=== PATIENT | female | born 1945 | race Caucasian/White ===

== ENCOUNTER → 2018-01-08 13:08 | Outpatient (CLI) | payer MEDICARE, MEDICAID, SELFPAY | PROVIDERS: PCP General Practice; Visit Provider Nurse Practitioner Family | DX: I10 Essential (primary) hypertension (principal); N95.0 Postmenopausal bleeding | CPT/HCPCS: 36415; 80051; 84520; 82565; 84443 ==

== ENCOUNTER → 2018-01-15 03:11 | Outpatient (CLI) | payer MEDICARE, MEDICAID, SELFPAY ==
--- NOTE | 2018-01-15 12:50 | DI.REPORT_ITS ---
SYMPTOMS/DIAGNOSIS: POSTMENOPAUSAL BLEEDING, N95.0 PELVIC ULTRASOUND: Transabdominal and transvaginal exams were performed. The uterus measures 6.4 x 2.7 x 3.7 cm. The endometrial stripe measures 2 mm in thickness. No fibroids are seen. The ovaries are normal in size and appearance. There is no evidence of hydronephrosis or free fluid. The bladder is unremarkable. IMPRESSION: Pelvic ultrasound is within normal limits.
== END ==
PROVIDERS: PCP General Practice; Visit Provider Nurse Practitioner Family
DX: N95.0 Postmenopausal bleeding (principal)
CPT/HCPCS: 76830; 76856

== ENCOUNTER 2018-06-25 10:23 | Outpatient (CLI) | payer MEDICARE, MEDICAID, SELFPAY ==
--- NOTE | 2018-06-25 10:26 | DI.RAD_ITS ---
SYMPTOM/DIAGNOSIS: L TKA LEFT KNEE: Comparison is made with 06 July 2017. Weight bearing AP and lateral views are performed. A total knee prosthesis is again noted. There has been no change in alignment. No abnormal bony lucencies are seen. IMPRESSION: Stable appearance of left knee prosthesis.
== END 2018-06-25 10:43 ==
PROVIDERS: PCP General Practice; Visit Provider Student in an Organized Health Care Education/Training Program
DX: M17.12 Unilateral primary osteoarthritis, left knee (principal); Z96.652 Presence of left artificial knee joint; Z47.1 Aftercare following joint replacement surgery; I10 Essential (primary) hypertension
CPT/HCPCS: 99213; 73560

== ENCOUNTER 2018-06-28 11:49 | Outpatient (CLI) | payer MEDICARE, SELFPAY ==
[2018-06-28 13:16] LABS: BUN 13 mg/dL (7-18); CREATININE 0.94 mg/dL (0.55-1.02); Chloride 99 mmol/L (98-107); Potassium 4.2 mmol/L (3.5-5.1); Sodium 139 mmol/L (136-145)
== END 2018-06-28 12:09 ==
PROVIDERS: PCP General Practice; Visit Provider General Practice
DX: E11.9 Type 2 diabetes mellitus without complications (principal); I10 Essential (primary) hypertension
CPT/HCPCS: 36415; 80051; 84520; 82565; 83036

== ENCOUNTER 2018-07-22 10:57 | Outpatient (CLI) | payer MEDICARE, SELFPAY ==
[2018-07-22 12:25] LABS: HCT 41.6 % (36.0-46.0); HGB 13.8 g/dL (12.0-15.5)
== END 2018-07-22 11:17 ==
PROVIDERS: PCP General Practice; Visit Provider Obstetrics & Gynecology
DX: N75.0 Cyst of Bartholin's gland (principal); Z01.818 Encounter for other preprocedural examination
CPT/HCPCS: 36415; 86850; 86900; 86901; 85014; 85018

== ENCOUNTER 2018-07-28 10:36 | Observation (INO) | payer MEDICARE, MEDICAID, SELFPAY ==
--- NOTE | 2018-07-22 11:43 | DSU.FORM ---
07/22/18 Patient scheduled for anesthesia visit. No anesthesia provider available at the time of pre op visit.
[2018-07-28] VITALS (11 sets, daily range): BP systolic 82–160; BP diastolic 35–85; PULSE 65–82; RESP 12–20; TEMP 36.4–37.1; O2SAT 93–97
[2018-07-28] MEDS: Lactated Ringers 1,000 ML 125 ML IV ×2 (08:31→11:12)
[2018-07-28] MEDS: Bupivacaine 0.25% Pres-Free 30 ML VIAL (09:25)
--- NOTE | 2018-07-28 09:48 | BARTHOLIN_PTH ---
PATIENT: Neema Luong V LOC: OBS U#:[id number] AGE/SX: 73/F ROOM: OBS.304 RE07/28/[address]: Jefe Kruger MD : 1945 BED: A DIS: 07/29/2018 SPEC #: [id number] RECD: 07/28/18 12:52 STATUS: EVA REQ #: [id number] IMER: 07/28/18 09:[address]: Jefe Krugre DEPT: Surgical Specimen RECD BY: Daija Rai ENTERED: 07/28/18 12:54 SP TYPE: Brenda Cyst OTHR DR: Blaze Davis Tissues: 1 - BARTHOLIN GLAND CYST Procedures: GROSS AND MICRO LEVEL 3 Comments: [id number]
--- NOTE | 2018-07-28 13:46 | NUR.NOTE ---
Admitteed to room 304 via stretcher from PACU. Alert, oriented, IV patent in R periph line at [address] drain in place r labia. SCD's on bilat. Nursing Note:
[2018-07-28] MEDS: Lactated Ringers 1,000 ML 75 ML IV (16:50)
[2018-07-28] MEDS: Normal Saline Flush 10 ML SYR IV ×2 (17:10→19:40)
[2018-07-28] MEDS: traMADol 50 MG TAB PO ×2 (18:17→22:03)
[2018-07-28] MEDS: Pregabalin 50 MG CAP 150 MG PO (21:11)
[2018-07-28] MEDS: Acetaminophen 500 MG TAB 1000 MG PO (21:11)
[2018-07-28] MEDS: FLUoxetine 20 MG CAP 40 MG PO (21:12)
[2018-07-28] MEDS: clonazePAM 0.5 MG TAB PO (21:12)
[2018-07-29 03:30] VITALS: BP 130/69; PULSE 71; RESP 16; TEMP 36.8; O2SAT 95
[2018-07-29] MEDS: Normal Saline Flush 10 ML SYR IV (03:42)
[2018-07-29] MEDS: Pregabalin 50 MG CAP 150 MG PO (08:21)
[2018-07-29] MEDS: FLUoxetine 20 MG CAP 40 MG PO (08:22)
[2018-07-29] MEDS: clonazePAM 0.5 MG TAB 0.25 MG PO (09:15)
--- NOTE | 2018-07-29 09:18 | PGE_ITS ---
Date of Service Date of service: 07/29/18 Time of Service: 09:16 Assessment and Plan (1) Vulvar mass: Current visit: Yes Status: Acute S/P excision of Bartholin's mass. She is felt suitable for discharge home. She does have tramadol at home and will not require a new prescription. Follow up with me in 1-2 weeks. Subjective Interval history since last seen: Doing well overnight. Minimal pain. Now rated 2/10. No significant vaginal bleeding or drainage from the incision. Tolerating regular diet. Ambulatory. Exam Other: On exam incision is well approximated. The silk suture retaining the [place] drain was clipped and the drain was removed easily. Minimal sero- sanguineous drainage was noted. Objective Objective Clinical Data: Vital Signs Temperature 98.2 F 07/29/18 03:30 Temperature Source Oral 07/29/18 03:30 Pulse 71 07/29/18 03:30 Pulse Rhythm Regular 07/29/18 03:15 Respiratory Rate 16 07/29/18 03:30 Respiratory Effort Non-Labored 07/29/18 03:15 Respiratory Depth Normal 07/29/18 03:15 Respiratory Pattern Normal 07/29/18 03:15 Blood Pressure 130/69 07/29/18 03:30 Pulse Oximetry 95 07/29/18 03:30 Respiratory End-tidal CO2 45 07/28/18 11:08 Oxygen Delivery Method Room Air 07/29/18 03:30 Oxygen Flow Rate 0 07/29/18 03:30 Pain Level 0 07/29/18 03:30 Comment 07/28/18 19:12 Intake & Output 07/28/18 07/28/18 07/29/18 11:59 23:59 11:59 Intake Total 999. Output Total 300 / 1700 1400 / 1700 1275 / 1275 Balance 700 / 300.00 -400.00 / 300.00 -1275 / -1275 Weight 220 lb 7.396 oz Intake: IV 999. Output: Urine 1400 / 1400 1275 / 1275 Estimated Blood Loss 300 / 300 Other: Urine Color Yellow Yellow Urine Appearance Clear Clear Urine Odor None None Comment laurita drain in place and draining small amount of serosanguous drainage laurita drain intact; no drainage noted Emesis Description None Voiding Methods Toilet Toilet
--- NOTE | 2018-07-29 09:26 | W.PM.OP ---
Date of service: 07/28/18 Time of Service: 10:00 Operative Note DATE OF PROCEDURE: 07/28/18 PRE-OP DIAGNOSIS: Bartholin's mass POST-OP DIAGNOSIS: same PROCEDURE: Excision of lesion of Bartholin's gland ASSISTING SURGEON: Alexus Monroy ANESTHESIA: GETA ESTIMATED BLOOD LOSS: 300 PATHOLOGY: other (Bartholin's mass) COMPLICATIONS: None Patient was transported to: PACU Patient's condition: stable Implants: [place] drain Findings: 4 cm vulvar mass in the region of Bartholin's gland Procedure Description: The patient was taken to the operating and after adequate general anesthesia was obtained the patient was placed in lithotomy position. The patient was prepped and draped in the usual sterile manner. The mass in the right vulvar was identified. The skin just inside the right labia was infiiltrated with 0.25% marcaine. A vertical incision was made overlying the mass and sharp dissection was used to dissect free the lesion from the labia. Dissection was carried quite deep and multiple vascular bundles required suture ligation. The lesion was well defined with no extension and was not fixed to surrounding tissue. The defect was closed in layers with 2-0 vicryl suture and a [place] drain was secured within the incision The incision was closed with interrupted vertical mattress sutures. The procedure was concluded at this point. Sponge, lap and needle counts were correct at the conclusion of the procedure. The patient tolerated the procedure well and was transferred to PACU in stable condition.
--- NOTE | 2018-07-29 09:31 | ROE_ITS ---
Date of service: 07/28/18 Time of Service: 10:00 Operative Note DATE OF PROCEDURE: 07/28/18 PRE-OP DIAGNOSIS: Bartholin's mass POST-OP DIAGNOSIS: same PROCEDURE: Excision of lesion of Bartholin's gland ASSISTING SURGEON: Alexus Monroy ANESTHESIA: GETA ESTIMATED BLOOD LOSS: 300 PATHOLOGY: other (Bartholin's mass) COMPLICATIONS: None Patient was transported to: PACU Patient's condition: stable Implants: [place] drain Findings: 4 cm vulvar mass in the region of Bartholin's gland Procedure Description: The patient was taken to the operating and after adequate general anesthesia was obtained the patient was placed in lithotomy position. The patient was prepped and draped in the usual sterile manner. The mass in the right vulvar was identified. The skin just inside the right labia was infiiltrated with 0.25% marcaine. A vertical incision was made overlying the mass and sharp dissection was used to dissect free the lesion from the labia. Dissection was carried quite deep and multiple vascular bundles required suture ligation. The lesion was well defined with no extension and was not fixed to s urrounding tissue. The defect was closed in layers with 2-0 vicryl suture and a [place] drain was secured within the incision The incision was closed with interrupted vertical mattress sutures. The procedure was concluded at this point. Sponge, lap and needle counts were correct at the conclusion of the procedure. The patient tolerated the procedure well and was transferred to PACU in stable condition.
[2018-07-29 11:47] VITALS: BP 130/64; PULSE 74; RESP 16; TEMP 37.1; O2SAT 98
== END 2018-07-29 11:15 | disposition home or self-care (01) ==
LOC: OBS 11:52
PROVIDERS: Admitting Provider Obstetrics & Gynecology; PCP General Practice; Visit Provider Obstetrics & Gynecology
PROC: 0UBL0ZZ Excision of Vestibular Gland, Open Approach (ICD-10-PCS; CPT 56740; principal; 2018-07-28 09:00)
DX: N75.0 Cyst of Bartholin's gland (principal); I10 Essential (primary) hypertension; K21.9 Gastro-esophageal reflux disease without esophagitis; E78.5 Hyperlipidemia, unspecified
CPT/HCPCS: 56740; 99233; 88304; A4600; J1100; J2405; J3010

== ENCOUNTER 2019-05-17 10:21 | Outpatient (CLI) | payer MEDICARE, MEDICAID, SELFPAY ==
[2019-05-17 11:47] LABS: Hemoglobin A1C 6.3 % (4.5-6.2)
[2019-05-17 11:55] LABS: BUN 13 mg/dL (7-18); CREATININE 0.74 mg/dL (0.55-1.02); Chloride 103 mmol/L (98-107); Potassium 3.9 mmol/L (3.5-5.1); Sodium 142 mmol/L (136-145)
== END 2019-05-17 10:41 ==
PROVIDERS: PCP General Practice; Visit Provider General Practice
DX: E11.9 Type 2 diabetes mellitus without complications (principal); I10 Essential (primary) hypertension
CPT/HCPCS: 36415; 80051; 84520; 82565; 83036

== ENCOUNTER → 2019-08-03 10:29 | Outpatient (BNVA) | payer MEDICARE, SELFPAY | PROVIDERS: PCP Nurse Practitioner Family; Referring Provider Nurse Practitioner Family; Visit Provider Surgery | DX: K62.5 Hemorrhage of anus and rectum (principal); K63.5 Polyp of colon; R59.0 Localized enlarged lymph nodes; Z00-Z99 Factors influencing health status and contact with health services | CPT/HCPCS: 99202; 99213 ==

== ENCOUNTER 2019-08-08 09:22 | Day surgery (SDC) | payer MEDICARE, SELFPAY ==
[2019-08-08 09:48] VITALS: BP 135/64; PULSE 58; RESP 16; TEMP 36.5; O2SAT 92
[2019-08-08] MEDS: Lactated Ringers 1,000 ML 100 ML IV (10:55)
--- NOTE | 2019-08-08 12:05 | STOM_PTH ---
PATIENT: Neema Luong V LOC: JAMIR U#:[id number] AGE/SX: 74/F ROOM: RE08/08/[address]: Callie Watkins : 1945 BED: DIS: 08/08/2019 SPEC #: [id number] RECD: 08/08/19 18:04 STATUS: EVA RE #: [id number] IMER: 08/08/19 12:[address]: Callie Watkins DEPT: Surgical Specimen RECD BY: Daija Rai ENTERED: 08/08/19 18:05 SP TYPE: STOMACH OTHR DR: Geoff Leiva Tissues: 1 - BIOPSY BOWEL 2 - STOMACH BIOPSY 3 - STOMACH BIOPSY 4 - ESOPHAGUS BIOPSY 5 - ESOPHAGUS BIOPSY Procedures: GROSS AND MICRO LEVEL 4 Comments: [id number]
--- NOTE | 2019-08-08 13:15 | W.PM.DSUDISC ---
Discharge Plan Disposition Patient Disposition: HOME Condition: Good Discharge Details Reason For Visit: HX OF COLON CAbile reflux gastritis/esophagitis Attending Provider: Callie Watkins Primary Care Provider: Geoff Leiva Home Meds and New Rx's Prescriptions: New sucralfate 1 gram tablet 1 gm PO QACHS Qty: 120 RF: 12 omeprazole 10 mg capsule,delayed release(DR/EC) 20 mg PO DAILY Qty: 60 RF: 12 lactulose 10 gram/15 mL (15 mL) solution 10 gm PO DAILY PRN (Reason: constipation) Qty: 750 RF: 12 Continued Medical Marijuana PO HS RF: 0 duloxetine [Cymbalta] 30 mg capsule,delayed release(DR/EC) 30 mg PO DAILY RF: 0 estradiol [Estrace] 0.01 % (0.1 mg/gram) cream 1 gm VG .COMPLEX Qty: 42.5 RF: 4 metoprolol succinate 50 MG tablet extended release 24 hr 12.5 mg PO BID RF: 0 clonazepam 0.5 MG tablet,disintegrating 0.25 mg PO BID PRNQty: 10 RF: 0 tramadol 50 MG tablet 50 mg PO Q6H PRN Qty: 20 RF: 0 lovastatin 40 MG tablet 40 mg PO DAILY RF: 0 hydrochlorothiazide 25 MG tablet 25 mg PO DAILY AM RF: 0 oxybutynin chloride 5 MG tablet 5 mg PO TID RF: 0 epinephrine 0.3 MG/SYR auto-injector 0.3 mg IJ PRN PRNRF: 0 diclofenac sodium [Voltaren] 100 GM gel 100 gm Topical BID RF: 0 albuterol sulfate [ProAir HFA] 8.5 GM HFA aerosol inhaler 2 puff Inhalation Q4H PRN PRNQty: 1 RF: 0 (DME) [employer] Action Asthma Kit 1 EACH kit 1 ea Miscellaneous Q4H PRN Qty: 1 RF: 0 pregabalin [Lyrica] 50 MG capsule 150 mg PO BID RF: 0 diphenhydramine-acetaminophen [Acetaminophen PM] 1 EACH tablet 2 tab PO HS PRNRF: 0 acetaminophen [Mapap Extra Strength] 500 MG tablet 1,000 mg PO Q8H Qty: 100 RF: 3 acetaminophen [Tylenol] 325 MG tablet 650 mg PO Q4H PRN PRNRF: 0 Discontinued aspirin 81 MG tablet,chewable 81 mg PO DAILY RF: 0 polyethylene glycol 3350 17 gram/dose powder 238 g PO ONCE Qty: 238 RF: 0 bisacodyl [Dulcolax (bisacodyl)] 5 mg tablet,delayed release (DR/EC) 5 mg PO ONCE Qty: 4 RF: 0 Discharge Instructions Instructions: Gastroesophageal Reflux Disease (GEN), High Fiber Diet (GEN) Additional Instructions: Findings:gastritis/esophagitis/GERD colon normal Continue with lifestyle modifications: no alcohol, tobacco products, Aspirin or NSAID's (ibuprofen, Motrin, Naprosyn, aleve, etc), soda pop/any carbonated beverages, caffeine (including tea & chocolate), and acidic foods, (tomatoes, citrus, onions, peppermints) spicy foods. Do not lie down for 30 minutes after eating, and do not eat 2 hours prior to bedtime. Avoid wearing tight fitting clothing/ belts -metamucil daily stop taking ASA daily Rx: prilosec and carafate and lactulose (daily to every other day prn BM) Follow up: 3-4 wks Please call if you develop: fevers >101.5 Nausea or Vomiting Abdominal pain that is not transient DAY SURGERY UNIT POST COLONOSCOPY INSTRUCTIONS 1. Because there will be medication in your system for the next 24 hours, you may feel a little sleepy. Your coordination will be affected. Therefore: a. Do not drive or operate dangerous equipment for 24 hours. b. Do not drink alcohol beverages for 24 hours (not even beer). c. Plan to go home and rest for the day. 2. Generally there are no restrictions on your activity after a day or so has gone by, but you may feel a bit fatigued for a few days. 3 After you arrive home you may have a light meal and return to a normal diet as you can tolerate it without feeling sick to your stomach. 4. After surgery, you may feel pain or discomfort. This should be only transient, but if it persists please contact your doctor. 5. If there are any questions regarding the findings of your procedure, please feel free to contact your doctor. 6. If you are unable to contact your doctor with a problem, contact the hospital at [phone]. 7. Continue all your regular medications unless directed otherwise. I understand the above instructions and have no questions. Signature of Patient or Responsible Adult Escort Date/Time Name of Responsible Adult Escort Signature of Nurse Date/Time Stand Alone Forms: Colonoscopy Post Instructions, DSU Post EGD Instructions, Jossie Garza (DSU) Discharge Orders Discharge Orders: Discharge Order (Routine); Ordered 08/08/19 Ordered By: Callie Watkins DS: Diagnosis Discharge Diagnosis (1) Polyp of colon: Status: Active (2) History of colon cancer: Status: Acute (3) Bile reflux gastritis: Status: Acute (4) Esophagitis determined by endoscopy: Status: Acute (5) GERD (gastroesophageal reflux disease): Status: Chronic
[2019-08-08] MEDS: Pantoprazole 40 MG VIAL IVP (13:20)
[2019-08-08] MEDS: Normal Saline Flush 10 ML SYR IV (13:27)
[2019-08-08 13:30] VITALS: BP 102/69; PULSE 60; RESP 18; TEMP 35.8
--- NOTE | 2019-08-08 14:28 | W.PM.ENDDOP ---
Date of service: 08/08/19 Time of Service: 22:00 Endoscopy Report DATE OF PROCEDURE: 08/08/19 PRE-OP DIAGNOSIS: gerd/dysphagia POST-OP DIAGNOSIS: other (bile reflux gastritis/esphagitis/slipped andrew) PROCEDURE: egd adn bx SURGEON: Callie Watkins ANESTHESIA: GETA ESTIMATED BLOOD LOSS: 1 PATHOLOGY: other COMPLICATIONS: None DISPOSITION: same day PROCEDURE DESCRIPTION: After informed consent was obtained the patient was take to the procedure room and placed in a supine position. Monitors were applied and a time out was done. The patients name, date of , procedure type, allergies to medications and metal in their body was reviewed. A bite block was placed and the patient was sedated. Once sedated and comfortable the gastroscope was advanced through the oropharynx which was grossly normal into the esophagus. The proximal and mid-esophagus were nl. In the distal esophagus there was moderate esophagitis. Changes could be consistent w/ Ayala's. Bx taken. THere is one tongue of muscosa at 11oclock position. noted. The scope was advanced into the stomach and through the pylorus into the 3rd portion of the duodenum. The duodenum was noted to be nl. Biopsies were done. All specimens are retrieved and no bleeding is noted.. The scope was retracted back into the stomach and biopsies were done to rule out H. pylori. There were moderate gastritis at antrum and inferior 1/2 of staomach along greater curve/dependant portion. No ulcers. The scope was retroflexed. The cardia and fundus were noted to be normal. There No a hiatal hernia noted. signs of previous wrap. This has come undone at this point- there is no wrap. The scope was retracted back into the esophagus and biopsies were done of the GE junction to rule out Ayala's. The Z line was irregular. The GE junction was at 38 cm. The scope was removed.
--- NOTE | 2019-08-08 14:31 | W.COLOREPORT ---
Date of service: 08/08/19 Time of Service: 21:58 Colonoscopy Report Date of procedure: 08/08/19 Pre-op diagnosis general: hx of CRC adn polyps/diverticula Post-op diagnosis procedure note: same Procedure: CE Surgeon: Callie Watkins Anesthesia proc note operative: GETA Estimated blood loss (mL): 0 Pathology: none sent Complications: None Disposition: same day Prep: Miralax/Dulcolax Retraction Time: 8 mins Procedure Description: After informed consent was obtained the patient was taken to the procedure room and placed in a left decubitous position. Monitors were applied and a time out was done. The patients name, date of , procedure, allergies to medications and metal in their body was reviewed. The patient was then sedated. Once sedated and comfortable a rectal exam was done. Internal exam revealed a normal sphincter tone and no palpable masses. no intneral hemorrhoids. The scope was then introduced and retrofelexed. No internal hemorrhoids were identified. The scope was then advanced to the cecum [w/out difficulty. The TI and appendiceal orifice were identified. The prep was good.. Pt has had x2 prior colon resections. Appears to be cecal adn sigmoid. a few small diverticula left insgmoid. no active bleeding/infection. The scope was then slowly retracted over 8 minutes back into the rectum. No Polyps were removed. The scope was removed and the patient was woken up and taken back to Same day surgery in stable condition. She had remants of hemorrhoidal tags. The patient tolerated the procedure well and there were no immediate complications. Follow up: The patient does nto need any repeat CE's unless they develop changes in bowel habits or other new gastrointestinal complaints.
== END 2019-08-08 14:30 | disposition home or self-care (01) ==
PROVIDERS: PCP Nurse Practitioner Family; Visit Provider Surgery
PROC: (CPT 43239; principal; 2019-08-08 10:30)
DX: K21.9 Gastro-esophageal reflux disease without esophagitis (principal); R13.10 Dysphagia, unspecified; K31.89 Other diseases of stomach and duodenum; K20.9 Esophagitis, unspecified; K29.70 Gastritis, unspecified, without bleeding; I10 Essential (primary) hypertension; E11.9 Type 2 diabetes mellitus without complications; G47.33 Obstructive sleep apnea (adult) (pediatric); Z85.038 Personal history of other malignant neoplasm of large intestine; K91.89 Other postprocedural complications and disorders of digestive system
CPT/HCPCS: 43239; 88305; J2001

== ENCOUNTER 2019-09-02 09:47 | Outpatient (CLI) | payer MEDICARE, SELFPAY ==
[2019-09-06 05:14] LABS: SARS-CoV-2 RNA Undetected (Undetected); SARS-CoV-2 Specimen Source Nasopharynx
== END 2019-09-02 10:07 ==
PROVIDERS: PCP Nurse Practitioner Family; Visit Provider Surgery
DX: Z03.818 Encounter for observation for suspected exposure to other biological agents ruled out (principal)
CPT/HCPCS: U0003

== ENCOUNTER → 2019-09-07 15:35 | Outpatient (BNVA) | payer MEDICARE, MEDICAID, SELFPAY | PROVIDERS: PCP Nurse Practitioner Family; Referring Provider Nurse Practitioner Family; Visit Provider Surgery | DX: K59.01 Slow transit constipation (principal); J45.909 Unspecified asthma, uncomplicated; K21.0 Gastro-esophageal reflux disease with esophagitis; K63.5 Polyp of colon; N81.6 Rectocele | CPT/HCPCS: 99212; 99442 ==

== ENCOUNTER → 2019-10-05 09:07 | Outpatient (BNVA) | payer MEDICARE, MEDICAID, SELFPAY | PROVIDERS: PCP Nurse Practitioner Family; Referring Provider Nurse Practitioner Family; Visit Provider Surgery | DX: K59.01 Slow transit constipation (principal); K21.9 Gastro-esophageal reflux disease without esophagitis; E11.9 Type 2 diabetes mellitus without complications; I10 Essential (primary) hypertension | CPT/HCPCS: 99212; 99441 ==

== ENCOUNTER 2019-12-12 14:27 | Outpatient (REF) | payer MEDICARE, SELFPAY ==
[2019-12-12 17:30] LABS: HGB 13.7 g/dL (12.0-15.5); Mean Corp. HGB Concentration 33.4 g/dL (32.0-36.0); Mean Corpuscular Hemoglobin 28.8 pg (27.0-33.0); Mean Corpuscular Volume 86.1 fL (80-95); Mean Platelet Volume 11.1 fL (8.0-11.0); Platelet Count 264 x1000/uL (130-400); RBC 4.76 m/cumm (4.00-5.20); RBC Distribution Width 13.8 % (11.7-14.6); White Blood Cell Count 4.89 k/cumm (4.4-10.8)
[2019-12-12 17:51] LABS: ALT 27 U/L (14-59); AST 17 U/L (15-37); Albumin 3.6 g/dL (3.4-5.0); Alkaline Phosphatase 72 U/L (46-116); Anion Gap 8.1 mmol/L (3-11); BUN 12 mg/dL (7-18); Bilirubin, Total 0.4 mg/dL (0.2-1.0); CO2 30.9 mmol/L (21.0-32.0); CREATININE 0.79 mg/dL (0.55-1.02); Calcium 9.1 mg/dL (8.5-10.1); Calculated LDL 102 mg/dL (<100); Chloride 101 mmol/L (98-107); Cholesterol 171 mg/dL (<200); Glucose 130 mg/dL (74-106); HDL Cholesterol 43 mg/dL (40-60); Potassium 3.8 mmol/L (3.5-5.1); Sodium 140 mmol/L (136-145); Total Protein 6.2 g/dL (6.4-8.2); Triglyceride 132 mg/dL (<150)
[2019-12-12 18:14] LABS: COMMENT (LAB VIEW ONLY) 61.52 mg/dL; Microalb ug/mg Crea 2.3 ug/mg Cr
== END 2019-12-12 14:47 ==
LOC: NCHCN 14:27
PROVIDERS: PCP Nurse Practitioner Family; Visit Provider Nurse Practitioner Family
DX: I10 Essential (primary) hypertension (principal); E11.9 Type 2 diabetes mellitus without complications; E78.5 Hyperlipidemia, unspecified
CPT/HCPCS: 80053; 80061; 85027; 82043; 82570

== ENCOUNTER 2020-01-25 01:09 | Outpatient (CLI) | payer MEDICARE, MEDICAID, SELFPAY ==
--- NOTE | 2020-01-25 | DI.MAMMO_ITS ---
EXAM: MAMMO SCREENING 60 MIN DUR CLINICAL HISTORY: SCREENING,Z12.39 TECHNIQUE: Mammograms were interpreted according to the usual protocol including computer analysis w [employer] CAD system, tomosynthesis and C-view imaging. COMPARISON: FINDINGS: The breasts are of moderate density with fairly symmetrical distribution fibroglandular tissue. No d ominant mass identified in either breast. In the left breast, there is a new group of intramammary c alcifications seen only on CC view laterally which are not ideally visualized, these may be associate d with vascular calcifications but intraductal calcification is not excluded. Additional evaluation with magnification spot compression views of this area recommended. No other significant change in appearance comparison with previous examinations including July 21. IMPRESSION: Additional mammographic views of the left breast requested as described above. Breast ultrasound may be indicated as well depending on the results of the additional mammographic views. BI-RADS Cat 0 - Assessment Incomplete: Need additional imaging evaluation: Breast Density - Category B - Scattered areas of fibroglandular density
== END 2020-01-25 01:29 ==
PROVIDERS: PCP Nurse Practitioner Family; Visit Provider Nurse Practitioner Family
DX: Z12.31 Encounter for screening mammogram for malignant neoplasm of breast (principal); R92.8 Other abnormal and inconclusive findings on diagnostic imaging of breast
CPT/HCPCS: 77063; 77067

== ENCOUNTER 2020-02-09 02:26 | Outpatient (CLI) | payer MEDICARE, MEDICAID, SELFPAY ==
--- NOTE | 2020-02-09 14:35 | DI.MAMMO_ITS ---
EXAM: MG MAMMO SCREEN CALL BACK UNI CLINICAL HISTORY: F/U ABNL MAMMO, NEW GROUP OF INFLAMMATORY CALCIFICATIONS TECHNIQUE: Spot compression views including C- View and tomographic imaging were performed. COMPARISON: 2010 through 2016 FINDINGS: Spot magnification views were performed of the upper and outer aspect of the left breast for question ed calcifications. There are scattered calcifications which show do not appear significantly change d when compared with previous exams. No suspicious masses or suspicious microcalcifications are seen. IMPRESSION: BI-RADS Category 2 - Benign Findings Yearly screening mammography is recommended. Breast Density - Category B, scattered fibroglandular densities.
== END 2020-02-09 02:46 ==
PROVIDERS: PCP Nurse Practitioner Family; Visit Provider Nurse Practitioner Family
DX: R92.8 Other abnormal and inconclusive findings on diagnostic imaging of breast (principal); R92.1 Mammographic calcification found on diagnostic imaging of breast; Z12.31 Encounter for screening mammogram for malignant neoplasm of breast
CPT/HCPCS: 77063; 77067

== ENCOUNTER 2020-02-09 14:58 | Outpatient (CLI) | payer MEDICARE, MEDICAID, SELFPAY ==
[2020-02-09 18:12] LABS: Vitamin D 25 Total 19.9 ng/ml (30-100)
[2020-02-09 18:38] LABS: TSH (W/Ref FT4) 1.83 uIU/mL (0.36-3.74)
== END 2020-02-09 15:18 ==
PROVIDERS: Nurse Practitioner Psychiatric/Mental Health; PCP Nurse Practitioner Family; Visit Provider Nurse Practitioner Family
DX: F32.9 Major depressive disorder, single episode, unspecified (principal); E55.9 Vitamin D deficiency, unspecified
CPT/HCPCS: 36415; 82306; 84443

== ENCOUNTER 2020-08-09 15:02 | Outpatient (REF) | payer MEDICARE, MEDICAID, SELFPAY ==
[2020-08-09 16:29] LABS: HCT 40.6 % (36.0-46.0); HGB 13.6 g/dL (11.2-15.7); MCH 29.4 pg (27.0-33.0); MCHC 33.5 % (32.0-36.0); MCV 87.9 fL (80-95); MPV 11.1 fL (8.0-11.0); Platelet Count 248 10^3/uL (130-400); RBC 4.62 10^6/uL (3.93-5.22); RDW 12.7 % (11.7-14.6); RDW-SD 41.2 fL; WBC 5.24 10^3/uL (4.4-10.8)
[2020-08-09 16:48] LABS: Bilirubin Negative (Negative); Blood Negative (Negative); Clarity Clear (Clear); Glucose Negative (Negative); Ketones Negative (Negative); Leukocyte Esterase Trace (Negative); Nitrite Negative (Negative); Urobilinogen 0.2 EU/dL (Up TO 0.2)
[2020-08-09 16:58] LABS: Bacteria Few HPF (Negative); C & S Indicated? Yes; Casts Negative LPF (Negative); Crystals Negative HPF (Negative); Epithelial Cells Few HPF (Negative); Mucus Negative (Negative); RBC 0-2 HPF (0-2)
[2020-08-09 17:20] LABS: ALT 23 U/L (14-59); AST 14 U/L (15-37); Albumin 3.5 g/dL (3.4-5.0); Alkaline Phosphatase 83 U/L (46-116); Anion Gap 8.6 mmol/L (3-11); BUN 10 mg/dL (7-18); Bilirubin, Total 0.5 mg/dL (0.2-1.0); CO2 29.4 mmol/L (21.0-32.0); CREATININE 0.8 mg/dL (0.55-1.02); Calcium 9.2 mg/dL (8.5-10.1); Chloride 101 mmol/L (98-107); Glucose 145 mg/dL (74-106); Potassium 3.8 mmol/L (3.5-5.1); Sodium 139 mmol/L (136-145); TSH (W/Ref FT4) 2.02 uIU/mL (0.36-3.74); Total Protein 6.2 g/dL (6.4-8.2); Vitamin B12 248 pg/mL (193-986)
[2020-08-10 02:55] LABS: ESR 9 mm/hr (<or=30)
[2020-08-10 10:17] LABS: Hepatitis C Ab w Rflx HCV PCR Negative (Negative)
[2020-08-10 10:19] LABS: HIV-1/2 Ag & Ab Screen Negative (Negative)
[2020-08-10 11:44] LABS: Syphilis Serology (RPR) Negative (Negative)
== END 2020-08-09 15:03 | disposition home or self-care (01) ==
LOC: NCHCN 15:02
PROVIDERS: PCP Nurse Practitioner Family; Visit Provider Nurse Practitioner Family
DX: G31.84 Mild cognitive impairment of uncertain or unknown etiology (principal); I10 Essential (primary) hypertension; E11.9 Type 2 diabetes mellitus without complications; Z11.4 Encounter for screening for human immunodeficiency virus [HIV]; Z11.59 Encounter for screening for other viral diseases; R82.998 Other abnormal findings in urine
CPT/HCPCS: 80053; 85027; 85652; 86803; 87389; 81003; 81015; 82607; 84443; 86592; 87086

== ENCOUNTER 2020-08-28 10:51 | Outpatient (CLI) | payer MEDICARE, MEDICAID, SELFPAY ==
--- NOTE | 2020-08-28 10:30 | DI.RAD_ITS ---
EXAM: XR SHOULDER LT COMPLETE 2+V CLINICAL HISTORY: left shoulder pain. TECHNIQUE: 2D digital imaging was performed. COMPARISON: CR LEFT SHOULDER COMPLETE from 09/29/2014 FINDINGS: BONES: No acute fracture is present. No bony destructive lesion is seen. Spurring at the AC joint and tip of the acromion. Prominent spurring at the glenoid and humeral head . JOINTS: No dislocation present. Narrowing of the glenohumeral joint SOFT TISSUE: Normal. IMPRESSION: Advanced degenerative changes. DATA REPOSITORY: RADIATION DOSE DELIVERED:
== END 2020-08-28 10:52 | disposition home or self-care (01) ==
LOC: DIORS 10:51
PROVIDERS: PCP Nurse Practitioner Family; Referring Provider Nurse Practitioner Family; Visit Provider Student in an Organized Health Care Education/Training Program
DX: M25.512 Pain in left shoulder (principal); M19.012 Primary osteoarthritis, left shoulder
CPT/HCPCS: 99203; 99213; 73030

== ENCOUNTER 2020-09-14 13:25 | Emergency (ER) | payer MEDICARE, MEDICAID, SELFPAY ==
[2020-09-14 13:37] VITALS: BP 173/90; PULSE 84; RESP 20; TEMP 36.7; O2SAT 95
--- OUTSIDE RECORDS SUMMARY | 2020-09-14 13:40 | XMS_ITS ---
:1945 Author Care Team Providers Name Role Phone IZA ISBELL Primary Care Provider [phone] IZA ISBELL Referring Provider [phone] Allergies Code Code System Name Reaction Severity Status Onset 69 RxNorm Metronidazole ? ? Active ? Nsaids ? ? Active ? (Non-steroidal Anti-inflammatory Drug) 2597 RxNorm Oxycodone ? ? Active ? Sulfa (Sulfonamide ? ? Active ? Antibiotics) Medications Name Status Start Date Stop Date ? ? Amitiza 24 mcg capsule Completed ? 0 Amitiza 8 mcg capsule Active ? Not availa ble Take 1 capsule every day by oral route. clonazepam 0.5 mg tablet Active ? Not elsa ilable clonidine HCl 0.1 mg tablet Completed ? 12/30 diclofenac 1 % topical gel Completed ? 01/09 duloxetine 20 mg capsule,delayed Completed ? 01/10/2020 release duloxetine 30 mg capsule,delayed Active ? Not available release duloxetine 60 mg capsule,delayed Active ? Not available release epinephrine 0.3 mg/0.3 mL injection, Completed ? 01/10/2020 auto-injector Estrace 0.01% (0.1 mg/gram) vaginal cream Active ? Not available APPLY 1 GRAM BY VAGINAL ROUTE 2-3 TIMES WEEKLY estradiol 1 mg tablet Completed ? 01/10/2020 fluoxetine 10 mg capsule Completed ? 020 fluoxetine 20 mg capsule Completed ? 020 fluoxetine 40 mg capsule Active ? Not elsa ilable Take 1 capsule every day by oral route. fluticasone propionate 50 mcg/actuation Completed ? 01/10/2020 nasal spray,suspension hydrochlorothiazide 25 mg tablet Active ? Not available lactulose 10 gram/15 mL oral solution Completed ? 01/10/2020 lovastatin 40 mg tablet Active ? Not avai lable metoprolol succinate ER 25 mg Active ? No t available tablet,extended release 24 hr metoprolol tartrate 25 mg tablet Completed ? 01/10/2020 omeprazole 10 mg capsule,delayed Completed ? 01/10/2020 release omeprazole 40 mg capsule,delayed Completed ? 01/10/2020 release oxybutynin chloride 5 mg tablet Completed ? 01/10/2020 pantoprazole 40 mg tablet,delayed Active ? Not available release pregabalin 150 mg capsule Active ? Not av ailable sucralfate 1 gram tablet Completed ? 020 tramadol 50 mg tablet Active ? Not availa ble trazodone 50 mg tablet Active ? Not avail able Ventolin HFA 90 mcg/actuation aerosol inhaler Active ? Not available Inhale 1 puff every 6 hours by inhalation route as needed. Problems Name Status Onset Date Source ? Type 2 Diabetes Mellitus Active ? ? Hyperlipidemia Active ? ? Anxiety Active ? ? Depressive Disorder Active ? ? Chronic Pain Active ? ? Carpal Tunnel Syndrome Active ? ? Hypertensive Disorder Active ? ? Asthma Active ? ? Gastroesophageal Reflux Disease without Esophagitis Active ? ? Constipation Active ? ? Osteoarthritis Active ? ? Spinal Stenosis of Lumbar Region Active ? ? Fibromyalgia Active ? ? Sleep Apnea Active ? ? Overactive Bladder Active ? ? Procedures None recorded. Results Lab Results None recorded. Past Encounters 02/21/2020 Feroz Renteria, DO: [address] [place] [address], Ph. 01/10/2020 Feroz Renteria, DO: [address] [place] [address], Ph. Social History None recorded. Vaccine List None recorded. Plan of Care Reminders Provider Appointments None ? ? recorded. Lab None ? ? recorded. Referral None ? ? recorded. Procedures None ? ? recorded. Surgeries None ? ? recorded. Imaging None ? ? recorded. Vitals 02/21/2020 02:00PM General Surgery F/U 20 min Height Weight BMI Blood Pressure 149.86 cm 86.18 kg 38.4 kg/m2 110/72 mm[Hg] 01/10/2020 02:00PM General Surgery Consult 40 min Height Weight BMI Blood Pressure 149.86 cm 89.36 kg 39.8 kg/m2 126/82 mm[Hg]
--- OUTSIDE RECORDS SUMMARY | 2020-09-14 13:40 | XMS_ITS ---
:1945 Author Care Team Providers Name Role Phone [facility] REC[facility] Primary Care Provider [phone] IZA ISBELL [facility] - C Primary Care Provider [phone] Allergies Code Code System Name Reaction Severity Status Onset Sulfa ? ? Active ? (Sulfonamid e Antibiotics ) Medications Name Status Start Date Stop Date ? ? Amitiza 24 mcg capsule Active ? Not avail able Amitiza 8 mcg capsule Completed ? 04/09/2020 amoxicillin 500 mg capsule Active ? Not a vailable celecoxib 100 mg capsule Active ? Not elsa ilable clonazepam 0.5 mg tablet Active ? Not elsa ilable diclofenac 1 % topical gel Active ? Not a vailable duloxetine 30 mg capsule,delayed Active ? Not available release duloxetine 60 mg capsule,delayed Active ? Not available release epinephrine 0.3 mg/0.3 mL injection, Active ? Not available auto-injector Estrace 0.01% (0.1 mg/gram) vaginal Active ? Not available cream estradiol 1 mg tablet Active ? Not availa ble Flovent HFA 110 mcg/actuation aerosol Active ? Not available inhaler fluoxetine 40 mg capsule Active ? Not elsa ilable fluticasone propionate 50 mcg/actuation Active ? Not available nasal spray,suspension hydrochlorothiazide 25 mg tablet Active ? Not available lactulose 10 gram/15 mL oral solution Completed ? 04/09/2020 lovastatin 40 mg tablet Active ? Not avai lable magnesium gluconate 27 mg magnesium (500 mg) tablet Active ? Not available Take 1 tablet twice a day by oral route. metoprolol succinate ER 25 mg Active ? No t available tablet,extended release 24 hr metoprolol tartrate 25 mg tablet Active ? Not available omeprazole 10 mg capsule,delayed Active ? Not available release omeprazole 40 mg capsule,delayed Active ? Not available release oxybutynin chloride 5 mg tablet Active ? Not available pantoprazole 40 mg tablet,delayed Active ? Not available release pregabalin 150 mg capsule Active ? Not av ailable sucralfate 1 gram tablet Active ? Not elsa ilable tramadol 50 mg tablet Active ? Not availa ble trazodone 50 mg tablet Active ? Not avail able Ventolin HFA 90 mcg/actuation aerosol Completed ? 04/09/2020 inhaler Problems Name Status Onset Date Source ? Severe Obesity Active ? History Psychophysiologic Insomnia Active ? Histo ry Hypersomnia Active ? History Obstructive Sleep Apnea Syndrome Active ? History Idiopathic Sleep Related Non-obstructive Active ? History Alveolar Hypoventilation Sleep-wake Schedule Disorder, Delayed Phase Type Active ? History Hypertensive Disorder Active ? History Backache Active ? History Nocturia Active ? History Procedure by Method Active ? History Respiratory Finding Active ? History Finding of Esophagus Active ? History Procedures None recorded. Results Lab Results None recorded. Past Encounters 04/09/2020 Benzodiazepine Withdrawal; Obstructive S leep Apnea Syndrome; Cramp in Lower Limb Associated with Sleep; Health Education Given; Safety Education Roman Leroy MD, Board Certified Sleep Ph ysician: [address] [place] [address] [address], [place] [address], Ph. Social History Tobacco Smoking Status Former Smoker Notes: 1968 s the last time Neema smoked Vaccine List None recorded. Plan of Care Patient Instructions Since your is having DREAM ENACTMENT BEHAVIOR (or acting out his dreams), please sleep in a different bed at least so you do not get accidentally injured. Please take safety precautions for him a nd for you! Your should also get evaluated b ecause this is NOT normal sleep behavior. Your blood pressure is currently HIGH 17 0/90 and you feel anxious. You usually take clonazepam 0.5mg twice daily but you ran out on Thursday and has not taken for 3 days. I think you are having withdrawal symptoms. I talked to somebody at your pharmacy and let them know. She will try to get refill from your prescriber Kesha at [facility], but even if she cannot get the refill prescription today, you s till have 4 pills left from your previou s script that Carol can fill for you for next 2 days. We also talked about importance of getti ng new mask supplies. Your mask cushion is covered by your insurance for replacement every month. Please sara on your calendar to call Janice to ask for replacemen t as soon as your insurance covers. They do call you but it sounds like the phone may not be the most reliable way of reaching you and email is not so either. So calling them at . You can also ask if they have a toll free number you can call to order supplies. You can also try this number which should also get forwarded to Aston Camacho . Muscle cramps: I recommend Magnesium Glu conate 500mg. Start with 1 tablet twice daily. If you get loose stools, decrease to 1/2 tablet. follow up in 2.5 years. sooner if needed . Most important to avoid withdrawing from your medication in future. Reminders Provider Appointments None recorded. ? ? Lab None recorded. ? ? Referral None recorded. ? ? Procedures None recorded. ? ? Surgeries None recorded. ? ? Imaging None recorded. ? ? Vitals 04/09/2020 12:30PM New Patient 47 Height Weight BMI Blood Pressure 149.86 cm 92.99 kg 41.4 kg/m2 170/90 mm[Hg] 07/17/2016 Height Weight Blood Pressure 149.86 cm 96.87 kg 124/64 mm[Hg] 10/18/2015 Height Weight Blood Pressure 149.86 cm 102.29 kg 138/78 mm[Hg] 06/21/2015 Height Weight Blood Pressure 149.86 cm 98.18 kg 138/74 mm[Hg] 03/27/2015 Height Weight Blood Pressure 149.86 cm 99.85 kg 158/84 mm[Hg]
[2020-09-14 14:00] LABS: Bilirubin Negative (Negative); Blood Negative (Negative); Clarity Clear (Clear); Glucose Negative (Negative); Ketones Negative (Negative); Leukocyte Esterase Small (Negative); Nitrite Negative (Negative); Specific Gravity 1.015 (1.005-1.025); Urobilinogen 0.2 EU/dL (Up TO 0.2); pH 7.5 (5-8)
[2020-09-14 14:09] LABS: Bacteria Rare HPF (Negative); C & S Indicated? No; Casts Negative LPF (Negative); Crystals Negative HPF (Negative); Epithelial Cells Few HPF (Negative); Mucus Negative (Negative); RBC 0-2 HPF (0-2); WBC 0-2 HPF (0-5)
[2020-09-14 14:13] LABS: Abs Immature Grans 0.01 10^3/uL (0.0-0.06); Absolute Basophil Count 0.04 10^3/uL (0.0-0.2); Absolute Eosinophil Count 0.23 10^3/uL (0.0-0.7); Absolute Lymphocyte Count 1.39 10^3/uL (1.2-3.4); Absolute Monocyte Count 0.59 10^3/uL (0.1-0.8); Absolute Neutrophil Count 4.19 10^3/uL (1.2-6.7); Basophils % 0.6; Eosinophils % 3.6; HCT 40.4 % (36.0-46.0); HGB 13.7 g/dL (11.2-15.7); Immature Grans % 0.2; Lymphocytes % 21.6; MCH 29.3 pg (27.0-33.0); MCHC 33.9 % (32.0-36.0); MCV 86.3 fL (80-95); MPV 10.3 fL (8.0-11.0); Monocytes % 9.1; Neutrophils % 64.9; Nucleated RBC 0 %; Platelet Count 239 10^3/uL (130-400); RBC 4.68 10^6/uL (3.93-5.22); RDW 12.7 % (11.7-14.6); RDW-SD 40.3 fL; WBC 6.45 10^3/uL (4.4-10.8)
[2020-09-14 14:14] LABS: ALT 30 U/L (14-59); AST 19 U/L (15-37); Albumin 3.7 g/dL (3.4-5.0); Alkaline Phosphatase 94 U/L (46-116); Anion Gap 7.5 mmol/L (3-11); BUN 11 mg/dL (7-18); Bilirubin, Total 0.6 mg/dL (0.2-1.0); CO2 31.5 mmol/L (21.0-32.0); CREATININE 0.8 mg/dL (0.55-1.02); Chloride 104 mmol/L (98-107); Glucose 92 mg/dL (74-106); Potassium 3.6 mmol/L (3.5-5.1); Sodium 143 mmol/L (136-145); Total Protein 6.8 g/dL (6.4-8.2)
[2020-09-14] MEDS: Lactated Ringers 500 ML IV (14:23)
[2020-09-14] MEDS: Ketorolac 15 MG/ML VIAL IVP (14:23)
[2020-09-14] MEDS: Normal Saline - Diluent 50 ML VIAL IV (15:26)
--- NOTE | 2020-09-14 15:30 | DI.CT_ITS ---
EXAM: CT ABDOMEN PELVIS W CLINICAL HISTORY: left flank pain 2mo, worse today, prior colon ca TECHNIQUE: Imaging Protocol: Axial computed tomography images with coronal and sagittal reformatted images were created and reviewed CONTRAST MATERIAL: Intravenous: Omnipaque 350 Contrast volume:100 mL Oral: No COMPARISON: CT ABD PELVIS WITH CONTRAST from 11/22/2015 FINDINGS: ABDOMEN: Lung Bases: Normal where visualized. Liver: Normal density. No measurable mass. Portal, Superior Mesenteric, and Splenic Veins: Unremarkable. Gallbladder and Biliary Tract: No radiodense calculus or dilation. Pancreas: Normal density, no abnormal calcifications or inflammatory process. Spleen: Normal. Adrenals: No masses seen. Kidneys: Normal size, contour and axis. No radiodense stones or obstructive uropathy. No masses seen. Abdominal Aorta: Abdominal portion non-dilated. Atherosclerosis. Bowel: No obstruction or bowel wall thickening. Appendix is unremarkable. Large amount of stool throu ghout the colon consistent with constipation. Anastomosis at the rectosigmoid junction. Moderate hi atal hernia. Peritoneal Cavity: No ascites, collection or mesenteric inflammatory response. No free air. Lymph Nodes: Within normal limits. Bones: Within normal limits for the patient's age. Soft Tissues: Small fat containing umbilical hernia PELVIS: Bladder: Symmetric distention, no gross wall thickening. Reproductive Organs: Unremarkable as visualized. Lymph Nodes: Within normal limits. Bones: Within normal limits for the patient's age. IMPRESSION: No acute abdominal or pelvic process. Results of this exam have been verbally communicated with provider. RADIATION DOSE DELIVERED: 1,531.98mGy.cm Total DLP DATA REPOSITORY: All CT scans at this facility are submitted to the National Radiology Data Registry (NRDR) Dose Index Registry (DIR) with the [employer] (A[employer]). RADIATION OPTIMIZATION: All CT scans at this facility use at least one of these dose optimization te chniques: automated exposure control; mA and/or kV adjustment per patient size (includes targeted exa ms where dose is matched to clinical indication); or iterative reconstruction.
--- NOTE | 2020-09-14 15:35 | ED.GENADUL_ITS ---
Discharge Plan Disposition Patient Disposition: HOME Condition: Stable Discharge Details Clinical Impression: Right flank pain Primary Care Provider: Geoff Leiva ED Provider: Kelton Barreto Home Meds and New Rx's Prescriptions: New sennosides-docusate sodium [Senna-S] 8.6-50 mg tablet 1 tab-cap PO BID 7 Days Qty: 14 RF: 0 Continued duloxetine [Cymbalta] 30 mg capsule,delayed release(DR/EC) 30 mg PO DAILY RF: 0 estradiol [Estrace] 0.01 % (0.1 mg/gram) cream 1 gm VG .COMPLEX Qty: 42.5 RF: 4 pantoprazole [Protonix] 40 mg tablet,delayed release (DR/EC) 40 mg PO DAILY Qty: 30 RF: 12 lubiprostone [Amitiza] 8 mcg capsule 8 mcg PO DAILY Qty: 30 RF: 12 aspirin 81 mg tablet,delayed release (DR/EC) 81 mg PO DAILY RF: 0 metoprolol succinate 50 MG tablet extended release 24 hr 12.5 mg PO BID RF: 0 lovastatin 40 MG tablet 40 mg PO HS RF: 0 hydrochlorothiazide 25 MG tablet 25 mg PO DAILY AM RF: 0 oxybutynin chloride 5 MG tablet 5 mg PO TID RF: 0 epinephrine 0.3 MG/SYR auto-injector 0.3 mg IJ PRN PRNRF: 0 albuterol sulfate [ProAir HFA] 8.5 GM HFA aerosol inhaler 2 puff Inhalation Q4H PRN PRNQty: 1 RF: 0 pregabalin [Lyrica] 50 MG capsule 150 mg PO BID RF: 0 fluoxetine 40 mg capsule 40 mg PO DAILY RF: 0 trazodone 50 mg tablet 25 - 50 mg PO QHS RF: 0 clonazepam 0.5 mg tablet 0.5 mg PO DAILY PRNRF: 0 aripiprazole 5 mg tablet 5 mg PO HS RF: 0 duloxetine 60 mg capsule,delayed release(DR/EC) 60 mg PO BID RF: 0 cholecalciferol (vitamin D3) [Vitamin D3] 25 mcg (1,000 unit) Tablet 25 mcg PO DAILY RF: 0 tramadol 50 MG tablet 100 mg PO Q8H PRN PRNRF: 0 No Action diclofenac sodium [Voltaren] 100 GM gel 100 gm Topical BID RF: 0 diphenhydramine-acetaminophen [Acetaminophen PM] 1 EACH tablet 2 tab PO HS PRNRF: 0 acetaminophen [Mapap Extra Strength] 500 MG tablet 1,000 mg PO Q8H Qty: 100 RF: 3 Discharge Instructions Instructions: Flank Pain (ED) Additional Instructions: Please follow-up with your primary care physician. Take Tylenol 650 mg every 6 hours as needed for pain. Please return to the emergency department immediately for any worsening or new concerning symptom Referrals: Geoff Leiva NP [Primary Care Provider] - Medical Decision Making 75-year-old female with history of colon cancer status post polypectomy here with severe right flank pain that has been waxing waning over the past 2 months. Patient is tender right flank. No tenderness over right lower quadrant or McBurney's point. No guarding or rebound Given prior history colon cancer, consider malignancy. Consider acute surgical process including renal stone. CT the abdomen pelvis was reviewed and interpreted by radiology: Significant stool, no acute process. Labs reviewed and nondiagnostic. Urinalysis negative. Patient was reassessed and notes feels much better after Toradol. Plan to provide stool softener and have the patient follow-up with her primary care physician. Usual and customary discharge instructions were reviewed with the patient she is encouraged to return immediately for any worsening or new concerning symptom HPI General Mode of arrival: ambulatory . Date/Time Provider Initiated Documentation: 09/14/20 13:49 . Limitations to Documentation: no limitations . Information obtained by: patient . HPI Narrative: 75-year-old female prior history of GERD, colon cancer status post polypectomy, presents with chief complaint of flank pain. Patient notes right flank pain that has been present for the past 2 months, waxing and waning, much worse since this morning. Patient notes today pain is intermittently sharp and severe. Pain is localized to her right flank and wrapping medially to right mid abdomen. Has had some associated nausea. No vomiting. No dysuria or hematuria Related Data Home Medications Medication Instructions Recorded Confirmed hydrochlorothiazide 25 mg PO DAILY AM 08/23/12 09/14/20 lovastatin 40 mg PO HS 08/23/12 09/14/20 oxybutynin chloride 5 mg PO TID 08/23/12 09/14/20 metoprolol succinate 12.5 mg PO BID tab-cap 09/15/14 09/14/20 diclofenac sodium [Voltaren] 100 gm TOPICAL BID 12/29/14 04/23/20 epinephrine 0.3 mg IJ PRN PRN 12/29/14 09/14/20 albuterol sulfate [ProAir HFA] 2 puff INHALATION Q4H PRN PRN #1 05/20/15 09/14/20 hfa.aer.ad pregabalin [Lyrica] 150 mg PO BID 11/22/15 09/14/20 diphenhydramine-acetaminophen 2 tab PO HS PRN 06/11/17 04/23/20 [Acetaminophen PM] acetaminophen [Mapap Extra 1,000 mg PO Q8H #100 tab 06/21/17 04/23/20 Strength] duloxetine 30 mg capsule,delayed 30 mg PO DAILY 07/09/18 09/14/20 release estradiol 1 gm VG .COMPLEX #42.5 gm 02/17/19 09/14/20 lubiprostone 8 mcg capsule 8 mcg PO DAILY #30 cap 09/07/19 09/14/20 pantoprazole 40 mg tablet,delayed 40 mg PO DAILY #30 tab 09/07/19 09/14/20 release aspirin 81 mg tablet,delayed 81 mg PO DAILY 08/28/20 release aripiprazole 5 mg PO HS 09/14/20 09/14/20 cholecalciferol (vitamin D3) 25 mcg PO DAILY 09/14/20 09/14/20 [Vitamin D3] clonazepam 0.5 mg PO DAILY PRN 09/14/20 09/14/20 duloxetine 60 mg PO BID 09/14/20 09/14/20 fluoxetine 40 mg PO DAILY 09/14/20 09/14/20 sennosides-docusate sodium 1 tab-cap PO BID 7 Days #14 tab 09/14/20 [Senna-S] tramadol 100 mg PO Q8H PRN PRN 09/14/20 09/14/20 trazodone 25 - 50 mg PO QHS 09/14/20 09/14/20 Previous Rx's Medication Instructions Recorded albuterol sulfate [ProAir HFA] 2 puff INHALATION Q4H PRN PRN #1 05/20/15 hfa.aer.ad acetaminophen [Mapap Extra 1,000 mg PO Q8H #100 tab 06/21/17 Strength] estradiol 1 gm VG .COMPLEX #42.5 gm 02/17/19 lubiprostone 8 mcg capsule 8 mcg PO DAILY #30 cap 09/07/19 pantoprazole 40 mg tablet,delayed 40 mg PO DAILY #30 tab 09/07/19 release sennosides-docusate sodium 1 tab-cap PO BID 7 Days #14 tab 09/14/20 [Senna-S] Allergies Allergy/AdvReac Type Severity Reaction Status Date / Time metronidazole Allergy Severe Anaphylaxsi Verified 09/14/20 13:44 s Sulfa (Sulfonamide Allergy Severe anaphalaxis Verified 09/14/20 13:44 Antibiotics) ibuprofen AdvReac Intermediate Gastro Verified 09/14/20 13:44 upset oxycodone [From Percocet] AdvReac Intermediate Other (See Verified 09/14/20 13:44 Comment) spider venom AdvReac Itching Unverified 09/14/20 13:44 General Stated Complaint: FlankPain MIR: 3 Review of Systems All systems reviewed & are unremarkable except as noted in HPI and below Constitutional Constitutional: Denies fever(s) Genitourinary Genitourinary: Reports as per HPI PFSH Medical History anaphalaxis secondary to antibiotics 12/2013 Anxiety Arthritis Asthma Asthma Benign hypertension Bile reflux gastritis Carcinoma of colon Carpal tunnel syndrome Chronic pain Constipation by delayed colonic transit Depression Diabetes mellitus Esophagitis determined by endoscopy Fibromyalgia Gastroesophageal reflux disease Pt reports this is better now. GERD (gastroesophageal reflux disease) Hyperlipidemia Hypertension Obesity Osteoarthritis Overactive bladder Polyp of colon Sleep apnea Spinal stenosis of lumbar region Surgical History Colectomy 08/2012 EGD - MAC (04/28/17) Hernia Repair, Incisional History of colonoscopy (~07/2019) History of esophagogastroduodenoscopy (EGD) (~07/2019) Hx of partial cystectomy Hx of shoulder surgery Alen Fundoplication Open Carpal Tunnel release R with trigger release Repair of umbilical hernia Replacement of total knee joint Right & LEFT varicose vein stripping Family History Other Diabetes Heart disease Hyperlipidemia Mental disorder Osteoporosis Personal history of malignant neoplasm Social History Smoking/Tobacco Use Status: Former Tobacco Use Quit Date: 06/01/79 Smoking risk assessment performed?: Yes Alcohol Intake: current Alcohol Intake frequency: a few times a month Alcohol type: beer Drug use: Rarely Substance use type: marijuana Details: Pt states she used to use medical marijuana but has not for about 6 months. Current gender identity: female Do you feel safe at home: Yes Do you feel safe in your relationship?: Yes History History 2 Para 2 Hx # Term Pregnancies Multiple births Hx # Pregnancies Ectopic pregnancies AB induced Hx Number of Living Children AB spontaneous Exam Const General: cooperative and no acute distress HENMT Mouth: moist mucous membranes Eyes Conjunctivae: normal conjunctivae Sclera: normal sclerae Neck Neck: trachea midline and supple Resp Auscultation: clear to auscultation bilaterally, no rales, no rhonchi and no wheezes Cardio Rate: regular rate and not tachycardic Rhythm: regular rhythm GI Palpation: soft, not firm, no guarding, no masses, not rigid and tender other (Right midabdomen); with no rebound tenderness Auscultation: hypoactive bowel sounds Back/Spine/Pelvis Back: CVA tenderness (right) Skin General skin exam: no rashes or lesions noted Neuro General: patient alert, patient awake, patient oriented x3 and tone normal Extrem General: no edema Psych Appearance: grossly normal Mental Status: mental status grossly normal Speech and Movement: speech and movement normal Course Vital Signs Vital signs: Vital Signs Temperature 36.7 C 09/14/20 13:37 Pulse 84 09/14/20 13:37 Respiratory Rate 20 09/14/20 13:37 Blood Pressure 173/90 H 09/14/20 13:37 Pulse Oximetry 95 09/14/20 13:37 Temperature 36.7 C 09/14/20 13:37 Temperature Source Skin 09/14/20 13:37 Pulse 84 09/14/20 13:37 Respiratory Rate 20 09/14/20 13:37 Respiratory Effort Non-Labored 09/14/20 13:46 Blood Pressure 173/90 H 09/14/20 13:37 Blood Pressure Position Sitting 09/14/20 13:37 Pulse Oximetry 95 09/14/20 13:37 Oxygen Delivery Method Room Air 09/14/20 13:37 Oxygen Flow Rate 0 09/14/20 13:37 Pain Level 7 09/14/20 13:37 Lab/Test Results Lab/Test Results: Laboratory Tests Range/Units 09/14/20 09/14/20 09/14/20 13:38 13:50 13:50 WBC (4.4-10.8) 10^3/uL 6.45 RBC (3.93-5.22) 10^6/uL 4.68 Hgb (11.2-15.7) g/dL 13.7 Hct (36.0-46.0) % 40.4 MCV (80-95) fL 86.3 MCH (27.0-33.0) pg 29.3 MCHC (32.0-36.0) % 33.9 RDW (11.7-14.6) % 12.7 Plt Count (130-400) 10^3/uL 239 MPV (8.0-11.0) fL 10.3 Immature Gran % 0.2 Neutrophils % 64.9 Lymphocytes % 21.6 Monocytes % 9.1 Eosinophils % 3.6 Basophils % 0.6 Nucleated RBC % % 0 Absolute Neutrophils (1.2-6.7) 10^3/uL 4.19 Absolute Lymphocytes (1.2-3.4) 10^3/uL 1.39 Absolute Monocytes (0.1-0.8) 10^3/uL 0.59 Absolute Eosinophils (0.0-0.7) 10^3/uL 0.23 Absolute Basophils (0.0-0.2) 10^3/uL 0.04 Sodium (136-145) mmol/L 143 Potassium (3.5-5.1) mmol/L 3.6 Chloride (98-107) mmol/L 104 Carbon Dioxide (21.0-32.0) mmol/L 31.5 Anion Gap (3-11) mmol/L 7.5 BUN (7-18) mg/dL 11 Creatinine (0.55-1.02) mg/dL 0.8 Estimated GFR/1.73 m2 (mL/min/1.73m2) >= 60.00 Glucose (74-106) mg/dL 92 Calcium (8.5-10.1) mg/dL 9.0 Total Bilirubin (0.2-1.0) mg/dL 0.6 AST (15-37) U/L 19 ALT (14-59) U/L 30 Alkaline Phosphatase (46-116) U/L 94 Total Protein (6.4-8.2) g/dL 6.8 Albumin (3.4-5.0) g/dL 3.7 Urine Color (Yellow) Yellow Urine Clarity (Clear) Clear Urine pH (5-8) 7.5 Ur Specific Homer (1.005-1.025) 1.015 Urine Protein (Negative) mg/dL Negative Urine Ketones (Negative) mg/dL Negative Urine Blood (Negative) Negative Urine Nitrite (Negative) Negative Urine Bilirubin (Negative) Negative Urine Urobilinogen (Up TO 0.2) EU/dL 0.2 Ur Leukocyte Esterase (Negative) Small H Urine RBC (0-2) HPF 0-2 Urine WBC (0-5) HPF 0-2 Ur Epithelial Cells (Negative) HPF Few Urine Crystals (Negative) HPF Negative Urine Bacteria (Negative) HPF Rare Urine Casts (Negative) LPF Negative Urine Mucus (Negative) Negative Ur Culture Indicated? No Urine Glucose (Negative) mg/dL Negative
[2020-09-14 16:05] VITALS: BP 156/80; PULSE 68; RESP 18; O2SAT 97
== END 2020-09-14 16:12 | disposition home or self-care (01) ==
PROVIDERS: Emergency Provider Student in an Organized Health Care Education/Training Program; PCP Nurse Practitioner Family
DX: R10.9 Unspecified abdominal pain (principal)
CPT/HCPCS: 80053; 96361; 96374; 99285; 74177; 81003; 81015; 85025; 99283; J1885

== ENCOUNTER 2021-07-01 00:27 | Outpatient (CLI) | payer MEDICARE, MEDICAID, SELFPAY ==
--- NOTE | 2021-07-01 | DI.RAD_ITS ---
Exam(s) XR CHEST 2V PA LATERAL EXAM: XR CHEST 2V PA LATERAL CLINICAL HISTORY: COUGH, R05 TECHNIQUE: 2D digital imaging was performed. COMPARISON: CR CHEST 2 VIEWS PA,LAT from 05/20/2015 FINDINGS: MEDIASTINUM: Normal. HEART: Normal. Aorta is tortuous. PULMONARY VASCULATURE: Normal. LUNGS: Minimal linear scarring, otherwise clear. PLEURAL SPACE: No pleural effusion or pneumothorax. BONE:Degenerative disc changes in the thoracic spine. IMPRESSION: No acute abnormality. DATA REPOSITORY: RADIATION DOSE DELIVERED:
== END 2021-07-01 00:47 ==
PROVIDERS: PCP Nurse Practitioner Family; Visit Provider Physician Assistant
DX: R05.8 Other specified cough (principal)
CPT/HCPCS: 71046

== ENCOUNTER 2021-07-08 15:40 | Outpatient (REF) | payer MEDICARE, MEDICAID, SELFPAY ==
[2021-07-08 17:46] LABS: COMMENT (LAB VIEW ONLY) 180.49 mg/dL; Microalb ug/mg Crea 4.5 ug/mg Cr
[2021-07-08 17:49] LABS: Hemoglobin A1C 6.4 % (<5.7)
[2021-07-08 17:50] LABS: ALT 27 U/L (14-59); AST 20 U/L (15-37); Albumin 3.6 g/dL (3.4-5.0); Alkaline Phosphatase 103 U/L (46-116); Anion Gap 8.9 mmol/L (3-11); BUN 13 mg/dL (7-18); Bilirubin, Total 0.3 mg/dL (0.2-1.0); CO2 31.1 mmol/L (21.0-32.0); CREATININE 0.8 mg/dL (0.55-1.02); Calcium 8.9 mg/dL (8.5-10.1); Calculated LDL 75 mg/dL (<100); Chloride 103 mmol/L (98-107); Cholesterol 138 mg/dL (<200); Glucose 157 mg/dL (74-106); HDL Cholesterol 36 mg/dL (40-60); Potassium 3.6 mmol/L (3.5-5.1); Sodium 143 mmol/L (136-145); Total Protein 6.4 g/dL (6.4-8.2); Triglyceride 135 mg/dL (<150)
== END 2021-07-08 15:41 | disposition home or self-care (01) ==
LOC: NCHCN 15:40
PROVIDERS: PCP Nurse Practitioner Family; Visit Provider Physician Assistant
DX: Z85.038 Personal history of other malignant neoplasm of large intestine (principal); E11.9 Type 2 diabetes mellitus without complications; I10 Essential (primary) hypertension
CPT/HCPCS: 80053; 80061; 82043; 82570; 83036

== ENCOUNTER → 2021-09-12 01:38 | Outpatient (CLI) | payer MEDICARE, MEDICAID, SELFPAY ==
--- NOTE | 2021-09-12 08:30 | DI.MAMMO_ITS ---
Exam(s) MAMMO SCREENING EXAM: MAMMO SCREENING CLINICAL HISTORY: SCREENING, Z12.39 TECHNIQUE: Mammograms were interpreted according to the usual protocol including computer analysis w [employer] CAD system, tomosynthesis and C-view imaging. COMPARISON: FINDINGS: The breasts are of moderate density with fairly symmetrical distribution of fibroglandular tissue. N o dominant mass or clumped microcalcification is identified in either breast. Current examination is compared with previous examinations including December 2019 and there has been no gross interval davis e appearance comparison with prior studies. IMPRESSION: No specific evidence of malignancy at this time. Routine screening examinations are suggested at yea rly intervals due to the family history of breast carcinoma. BI-RADS Category 1 - Negative Breast Density - Category B - Scattered areas of fibroglandular density
== END ==
PROVIDERS: PCP Nurse Practitioner Family; Visit Provider Physician Assistant
DX: Z12.39 Encounter for other screening for malignant neoplasm of breast (principal)
CPT/HCPCS: 77063; 77067; 87480; 87510; 87660

== ENCOUNTER → 2021-11-15 00:02 | Outpatient (CLI) | payer MEDICARE, MEDICAID, SELFPAY | PROVIDERS: PCP Nurse Practitioner Family; Visit Provider Physician Assistant ==

== ENCOUNTER 2021-11-25 23:38 | Emergency (ER) | payer MEDICARE, MEDICAID, SELFPAY ==
[2021-11-25 23:47] VITALS: BP 149/84; PULSE 84; RESP 18; TEMP 36.5; O2SAT 96
--- NOTE | 2021-11-25 23:53 | W.ED.GENAD ---
Discharge Plan Disposition Patient Disposition: HOME Condition: Good Discharge Details Clinical Impression: Cellulitis of left breast Primary Care Provider: Geoff Leiva ED Provider: Dandre Rosales Home Meds and New Rx's Prescriptions: New doxycycline hyclate 100 mg tablet 100 mg PO BID Qty: 20 0RF No Action fluticasone propionate 50 mcg/actuation spray,suspension 1 spray intranasal DAILY Rx Instructions: administer into each nostril lubiprostone [Amitiza] 8 mcg capsule 8 mcg PO DAILY aripiprazole 5 mg tablet 5 mg PO QHS metformin 500 mg tablet 500 mg PO DAILY sucralfate [Carafate] 1 gram tablet 1 g PO BID Label Comments: with meals pantoprazole [Protonix] 40 mg tablet,delayed release (DR/EC) 40 mg PO DAILY Qty: 30 12RF metoprolol succinate 50 MG tablet extended release 24 hr 12.5 mg PO BID Label Comments: 06/11/17 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 and takes half of that daily.DCW clonazepam 0.5 mg tablet 0.5 mg PO BID PRN Label Comments: Take 1 tablet by mouth once a day as directed for panic attacks duloxetine [Cymbalta] 30 mg capsule,delayed release(DR/EC) 60 mg PO QHS trazodone 50 mg tablet 50 mg PO QHS Label Comments: 1/2 tp 1 tab po HS lovastatin 40 MG tablet 40 mg PO HS hydrochlorothiazide 25 MG tablet 25 mg PO DAILY AM oxybutynin chloride 5 MG tablet 5 mg PO TID epinephrine 0.3 MG/SYR auto-injector 0.3 mg IJ PRN PRN albuterol sulfate [ProAir HFA] 8.5 GM HFA aerosol inhaler 2 puff Inhalation Q4H PRN PRNQty: 1 0RF Rx Instructions: TO GET PEAK FLOW UP TOWARDS 400 pregabalin [Lyrica] 50 MG capsule 150 mg PO BID cholecalciferol (vitamin D3) [Vitamin D3] 25 mcg (1,000 unit) Tablet 25 mcg PO DAILY fluoxetine 40 mg capsule 20 mg PO DAILY tramadol 50 mg tablet 100 mg PO Q8H PRN PRN Label Comments: 2 tabs BID PRN and one at midday Discharge Instructions Instructions: Cellulitis (ED) Additional Instructions: At this time you thankfully do not have any evidence of an abscess in the breast. You do have cellulitis. We have given you a prescription for doxycycline. Please make sure to take this with food, as it otherwise can cause nausea when you take it. Please do not take any milk or dairy products or your Carafate/sucralfate with it as it can make the medication less effective. While you are on the medication please be cautious with the sun as you can have an increase sensitivity to the sun while on doxycycline. If you notice increasing redness, or increase in firmness or something feeling like a large golf ball or mass in your breast please return for reassessment potential abscess development. If you notice any worsening of your symptoms, or any new symptoms such as vomiting, diarrhea, fever, chills, shortness of breath, chest pain, numbness, weakness, or fainting , please return immediately to the emergency department for reevaluation. Please follow up with your primary care provider as soon as possible for reassessment and reevaluation. As always, it was a pleasure participating in your medical care today. Referrals: Geoff Leiva NP [Primary Care Provider] - Medical Decision Making This is a 76-year-old female with a past medical history of diabetes, mild obesity, who presents today for evaluation of lesion on her left breast. She states that it is been present for the last 24 to 48 hours. She does not know what caused it. She denies any tick bites. She denies any fever or chills. It is notably tender. She has been applying triple antibiotic ointment and NSAIDs without any significant improvement. No other complaints at this time. No other modifying factors. Exam demonstrates no evidence of a mild area of cellulitis on the medial aspect of the left breast. Mild induration at the center but no abscess. No fluid collection on bedside ultrasound. At this time we will give doxycycline for MRSA coverage for her cellulitis. Did discuss the nuances of taking doxycycline in regards to sun exposure, and upset stomach. We will give a dose here, and a prescription for home. I have extensively reviewed the treatment plan and discharge instructions with the patient and their family. I have addressed all patient concerns at this time. The patient and family was made aware of what symptoms to monitor for that would warrant a return to the emergency department. Discussed the plan with the patient and family, they demonstrate verbal understanding and agreement with our assessment and plan at this time. The documentation in this chart was dictated using [employer] dictation software. Please excuse any dictation errors. HPI General Date/Time Provider Initiated Documentation: 11/25/21 23:52. HPI Narrative: This is a 76-year-old female with a past medical history of diabetes, mild obesity, who presents today for evaluation of lesion on her left breast. She states that it is been present for the last 24 to 48 hours. She does not know what caused it. She denies any tick bites. She denies any fever or chills. It is notably tender. She has been applying triple antibiotic ointment and NSAIDs without any significant improvement. No other complaints at this time. No other modifying factors. Related Data Home Medications Medication Instructions Recorded Confirmed hydrochlorothiazide 25 mg tablet 25 mg PO DAILY AM 08/23/12 10/21/21 lovastatin 40 mg tablet 40 mg PO HS 08/23/12 10/21/21 oxybutynin chloride 5 mg tablet 5 mg PO TID 08/23/12 10/21/21 metoprolol succinate 50 mg 12.5 mg PO BID 09/15/14 10/21/21 tablet,extended release 24 hr epinephrine 0.3 mg/0.3 mL 0.3 mg IJ PRN PRN 12/29/14 10/21/21 injection, auto-injector albuterol sulfate 90 mcg/actuation 2 puff inhalation Q4H PRN PRN ##1 05/20/15 10/21/21 aerosol inhaler (ProAir HFA) pregabalin 50 mg capsule (Lyrica) 150 mg PO BID 11/22/15 10/21/21 pantoprazole 40 mg tablet,delayed 40 mg PO DAILY #30 tabs 09/07/19 10/21/21 release (Protonix) cholecalciferol (vitamin D3) 25 25 mcg PO DAILY 09/14/20 10/21/21 mcg (1,000 unit) tablet (Vitamin D3) clonazepam 0.5 mg tablet 0.5 mg PO BID PRN 09/24/20 10/21/21 aripiprazole 5 mg tablet 5 mg PO QHS 09/12/21 10/21/21 duloxetine 30 mg capsule,delayed 60 mg PO QHS 09/12/21 10/21/21 release (Cymbalta) fluoxetine 40 mg capsule 20 mg PO DAILY 09/12/21 10/21/21 fluticasone propionate 50 1 spray intranasal DAILY 09/12/21 10/21/21 mcg/actuation nasal spray,suspension lubiprostone 8 mcg capsule 8 mcg PO DAILY 09/12/21 10/21/21 (Amitiza) metformin 500 mg tablet 500 mg PO DAILY 09/12/21 10/21/21 sucralfate 1 gram tablet (Carafate) 1 g PO BID 09/12/21 10/21/21 tramadol 50 mg tablet 100 mg PO Q8H PRN PRN 09/12/21 10/21/21 trazodone 50 mg tablet 50 mg PO QHS 09/12/21 10/21/21 doxycycline hyclate 100 mg tablet 100 mg PO BID #20 tabs 11/25/21 Previous Rx's Medication Instructions Recorded albuterol sulfate 90 mcg/actuation 2 puff inhalation Q4H PRN PRN ##1 05/20/15 aerosol inhaler (ProAir HFA) pantoprazole 40 mg tablet,delayed 40 mg PO DAILY #30 tabs 09/07/19 release (Protonix) doxycycline hyclate 100 mg tablet 100 mg PO BID #20 tabs 11/25/21 Allergies Allergy/AdvReac Type Severity Reaction Status Date / Time metronidazole Allergy Severe Anaphylaxsi Verified 10/21/21 13:49 s Sulfa (Sulfonamide Allergy Severe anaphalaxis Verified 10/21/21 13:49 Antibiotics) ibuprofen AdvReac Intermediate Gastro Verified 10/21/21 13:49 upset oxycodone [From Percocet] AdvReac Intermediate Other (See Verified 10/21/21 13:49 Comment) NSAIDS (Non-Steroidal AdvReac Itching Verified 10/21/21 13:49 Anti-Inflamma spider venom AdvReac Itching Verified 10/21/21 13:49 General Stated Complaint: RashLesion MIR: 4 Review of Systems All systems reviewed & are unremarkable except as noted in HPI and below PFSH All Active Problems Cellulitis of left breast (Acute) Atrophic vaginitis (Acute) Anxiety (Chronic) Medical History anaphalaxis secondary to antibiotics 12/2013 Arthritis of left shoulder region Asthma Auditory hallucinations Benign hypertension Bile reflux gastritis Carpal tunnel syndrome Chronic pain Constipation by delayed colonic transit Depression Diabetes mellitus Esophagitis determined by endoscopy Fibromyalgia History of colon cancer (07/18/16) Hypercholesterolemia Mild cognitive impairment Obesity Osteoarthritis Overactive bladder Polyp of colon (10/05/12) Laparoscopic sigmoid hemicolectomy by Dr. Jose David Renteria 10/05/2012. 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 Hx of partial cystectomy Hx of shoulder surgery Alen Fundoplication Open Carpal Tunnel release R with trigger release Repair of umbilical hernia Replacement of total knee joint Right & LEFT varicose vein stripping Family History Other Diabetes Heart disease Hyperlipidemia Mental disorder Osteoporosis Personal history of malignant neoplasm Social History Smoking/Tobacco Use Status: Former Tobacco Use Quit Date: 06/01/79 Smoking risk assessment performed?: Yes Alcohol Intake: current Alcohol Intake frequency: a few times a month Alcohol type: beer Drug use: Rarely Substance use type: marijuana Details: Pt states she used to use medical marijuana but has not for about 6 months. 09/12/21- pt rpeorts using marijuana at night only current occupation: Retired Current gender identity: female Darcy/Roman Catholic: Pentacostal Special darcy needs: No Do you feel safe at home: Yes Do you feel safe in your relationship?: Yes Female Reproductive History Menstrual Age of Menarche: 15 Duration of menses: 6-7 days control method: none Menopause type: natural Date of menopause: 06/01/05 History History 2 Para 2 Hx # Term Pregnancies Multiple births Hx # Pregnancies Ectopic pregnancies AB induced Hx Number of Living Children AB spontaneous Past Pregnancies Del. Date GA/Weeks # Preg Succ Route Wgt Sex Labor Lgth Anesthesia Location Prov Complic 07/02/69 40 No vaginal 3175.147 g Male 04/29/72 40 No vaginal 2948.35 g Male Delivery Date: 07/02/69 Last Updated by: Nellie Rubio episiotomy Exam Narrative Exam Narrative: 1.Const: Well-nourished, Well-developed, appearing stated age 2.Eyes: PERRL, no conjunctival injection, and symmetrical lids. 3.ENT: Atraumatic external nose and ears. Moist MM. Neck: Symmetric, trachea midline, No thyromegaly. 4.CVS: +S1/S2, No murmurs or gallops. Peripheral pulses 2+ and equal in all extremities. Brisk capillary refill in all extremities. 5.RESP: Unlabored respiratory effort. Clear to auscultation bilaterally. No wheezes rales or rhonchi 6.GI: Soft, Nontender/Nondistended, No hepatosplenomegaly. No guarding or rebound. 7.MSK: Normocephalic/Atraumatic, Extremities w/o deformity or ttp No cyanosis or clubbing, Normal movement of all extremities 8.Skin: Warm, Dry. Patient's left breast demonstrates an area of mild erythema over the medial aspect of the left breast. There is a small amount of induration in the central component. There is no fluctuance. No bull's-eye lesion. No evidence of erythema migrans. Bedside ultrasound shows a very minimal amount of cobblestoning but no fluid collection. No evidence of an abscess. 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 Sensation grossly intact, no focal neurologic deficits. 10.Psych: (AAO) x3. Appropriate mood and affect Course Vital Signs Vital signs: Vital Signs Temperature 36.5 C 11/25/21 23:47 Pulse 84 11/25/21 23:47 Respiratory Rate 18 11/25/21 23:47 Blood Pressure 149/84 H 11/25/21 23:47 Pulse Oximetry 96 11/25/21 23:47 Temperature 36.5 C 11/25/21 23:47 Temperature Source Temporal Artery Scan 11/25/21 23:47 Pulse 84 11/25/21 23:47 Respiratory Rate 18 11/25/21 23:47 Respiratory Effort Non-Labored 11/25/21 23:50 Blood Pressure 149/84 H 11/25/21 23:47 Blood Pressure Position Sitting 11/25/21 23:47 Pulse Oximetry 96 11/25/21 23:47 Oxygen Delivery Method Room Air 11/25/21 23:47 Oxygen Flow Rate 0 11/25/21 23:47 Pain Level 0 11/25/21 23:47
[2021-11-26] MEDS: Doxycycline Hyclate 100 MG, 2 CAPS/BTL PO (00:06)
== END 2021-11-26 00:08 | disposition home or self-care (01) ==
PROVIDERS: Emergency Provider Student in an Organized Health Care Education/Training Program; PCP Nurse Practitioner Family
DX: N61.0 Mastitis without abscess (principal)
CPT/HCPCS: 99283

== ENCOUNTER 2021-11-26 17:57 | Inpatient (IN) | payer MEDICARE, MEDICAID, SELFPAY ==
[2021-11-26] VITALS (21 sets, daily range): BP systolic 93–193; BP diastolic 50–115; PULSE 72–94; RESP 14–16; TEMP 37.3–38.8; O2SAT 88–95
--- NOTE | 2021-11-26 18:07 | ED.GENADUL_ITS ---
Discharge Plan Discharge Details Chief Complaint: GenMedical Primary Care Provider: Geoff Leiva ED Provider: Yi Miranda Home Meds and New Rx's Prescriptions: No Action fluticasone propionate 50 mcg/actuation spray,suspension 1 spray intranasal DAILY Rx Instructions: administer into each nostril lubiprostone [Amitiza] 8 mcg capsule 8 mcg PO DAILY aripiprazole 5 mg tablet 5 mg PO QHS metformin 500 mg tablet 500 mg PO DAILY sucralfate [Carafate] 1 gram tablet 1 g PO BID Label Comments: with meals pantoprazole [Protonix] 40 mg tablet,delayed release (DR/EC) 40 mg PO DAILY Qty: 30 12RF metoprolol succinate 50 MG tablet extended release 24 hr 12.5 mg PO BID Label Comments: 06/11/17 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 and takes half of that daily.DCW clonazepam 0.5 mg tablet 0.5 mg PO BID PRN Label Comments: Take 1 tablet by mouth once a day as directed for panic attacks duloxetine [Cymbalta] 30 mg capsule,delayed release(DR/EC) 60 mg PO QHS trazodone 50 mg tablet 50 mg PO QHS Label Comments: 06/02 tp 1 tab po HS lovastatin 40 MG tablet 40 mg PO HS hydrochlorothiazide 25 MG tablet 25 mg PO DAILY AM oxybutynin chloride 5 MG tablet 5 mg PO TID epinephrine 0.3 MG/SYR auto-injector 0.3 mg IJ PRN PRN albuterol sulfate [ProAir HFA] 8.5 GM HFA aerosol inhaler 2 puff Inhalation Q4H PRN PRNQty: 1 0RF Rx Instructions: TO GET PEAK FLOW UP TOWARDS 400 pregabalin [Lyrica] 50 MG capsule 150 mg PO BID cholecalciferol (vitamin D3) [Vitamin D3] 25 mcg (1,000 unit) Tablet 25 mcg PO DAILY fluoxetine 40 mg capsule 20 mg PO DAILY tramadol 50 mg tablet 100 mg PO Q8H PRN PRN Label Comments: 2 tabs BID PRN and one at midday doxycycline hyclate 100 mg tablet 100 mg PO BID Qty: 20 0RF HPI General Date/Time Provider Initiated Documentation: 11/26/21 17:58 . Related Data Home Medications Medication Instructions Recorded Confirmed hydrochlorothiazide 25 mg tablet 25 mg PO DAILY AM 08/23/12 11/26/21 lovastatin 40 mg tablet 40 mg PO HS 08/23/12 11/26/21 oxybutynin chloride 5 mg tablet 5 mg PO TID 08/23/12 11/26/21 metoprolol succinate 50 mg 12.5 mg PO BID 09/15/14 11/26/21 tablet,extended release 24 hr epinephrine 0.3 mg/0.3 mL 0.3 mg IJ PRN PRN 12/29/14 11/26/21 injection, auto-injector albuterol sulfate 90 mcg/actuation 2 puff inhalation Q4H PRN PRN ##1 05/20/15 aerosol inhaler (ProAir HFA) pregabalin 50 mg capsule (Lyrica) 150 mg PO BID 11/22/15 11/26/21 pantoprazole 40 mg tablet,delayed 40 mg PO DAILY #30 tabs 09/07/19 11/26/21 release (Protonix) cholecalciferol (vitamin D3) 25 25 mcg PO DAILY 09/14/20 11/26/21 mcg (1,000 unit) tablet (Vitamin D3) clonazepam 0.5 mg tablet 0.5 mg PO BID PRN 09/24/20 11/26/21 aripiprazole 5 mg tablet 5 mg PO QHS 09/12/21 11/26/21 duloxetine 30 mg capsule,delayed 60 mg PO QHS 09/12/21 11/26/21 release (Cymbalta) fluoxetine 40 mg capsule 20 mg PO DAILY 09/12/21 11/26/21 fluticasone propionate 50 1 spray intranasal DAILY 09/12/21 11/26/21 mcg/actuation nasal spray,suspension lubiprostone 8 mcg capsule 8 mcg PO DAILY 09/12/21 11/26/21 (Amitiza) metformin 500 mg tablet 500 mg PO DAILY 09/12/21 11/26/21 sucralfate 1 gram tablet (Carafate) 1 g PO BID 09/12/21 11/26/21 tramadol 50 mg tablet 100 mg PO Q8H PRN PRN 09/12/21 11/26/21 trazodone 50 mg tablet 50 mg PO QHS 09/12/21 11/26/21 doxycycline hyclate 100 mg tablet 100 mg PO BID #20 tabs 11/25/21 11/26/21 Previous Rx's Medication Instructions Recorded albuterol sulfate 90 mcg/actuation 2 puff inhalation Q4H PRN PRN ##1 05/20/15 aerosol inhaler (ProAir HFA) pantoprazole 40 mg tablet,delayed 40 mg PO DAILY #30 tabs 09/07/19 release (Protonix) doxycycline hyclate 100 mg tablet 100 mg PO BID #20 tabs 11/25/21 Allergies Allergy/AdvReac Type Severity Reaction Status Date / Time metronidazole Allergy Severe Anaphylaxsi Verified 11/26/21 18:06 s Sulfa (Sulfonamide Allergy Severe anaphalaxis Verified 11/26/21 18:06 Antibiotics) ibuprofen AdvReac Intermediate Gastro Verified 11/26/21 18:06 upset oxycodone [From Percocet] AdvReac Intermediate Other (See Verified 11/26/21 18:06 Comment) NSAIDS (Non-Steroidal AdvReac Itching Verified 11/26/21 18:06 Anti-Inflamma spider venom AdvReac Itching Verified 11/26/21 18:06 General Stated Complaint: GenMedical MIR: 3 PFSH All Active Problems Cellulitis of left breast (Acute) Atrophic vaginitis (Acute) Anxiety (Chronic) Medical History anaphalaxis secondary to antibiotics 12/2013 Arthritis of left shoulder region Asthma Auditory hallucinations Benign hypertension Bile reflux gastritis Carpal tunnel syndrome Chronic pain Constipation by delayed colonic transit Depression Diabetes mellitus Esophagitis determined by endoscopy Fibromyalgia History of colon cancer (07/18/16) Hypercholesterolemia Mild cognitive impairment Obesity Osteoarthritis Overactive bladder Polyp of colon (10/05/12) Laparoscopic sigmoid hemicolectomy by Dr. Jose David Renteria 10/05/2012. 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 Hx of partial cystectomy Hx of shoulder surgery Alen Fundoplication Open Carpal Tunnel release R with trigger release Repair of umbilical hernia Replacement of total knee joint Right & LEFT varicose vein stripping Family History Other Diabetes Heart disease Hyperlipidemia Mental disorder Osteoporosis Personal history of malignant neoplasm Social History Smoking/Tobacco Use Status: Former Tobacco Use Quit Date: 06/01/79 Smoking risk assessment performed?: Yes Alcohol Intake: current Alcohol Intake frequency: a few times a month Alcohol type: beer Drug use: Rarely Substance use type: marijuana Details: Pt states she used to use medical marijuana but has not for about 6 months. 09/12/21- pt rpeorts using marijuana at night only current occupation: Retired Current gender identity: female Darcy/Moravian: Pentacostal Special darcy needs: No Do you feel safe at home: Yes Do you feel safe in your relationship?: Yes Female Reproductive History Menstrual Age of Menarche: 15 Duration of menses: 6-7 days control method: none Menopause type: natural Date of menopause: 06/01/05 History History 2 Para 2 Hx # Term Pregnancies Multiple births Hx # Pregnancies Ectopic pregnancies AB induced Hx Number of Living Children AB spontaneous Past Pregnancies Del. Date GA/Weeks # Preg Succ Route Wgt Sex Labor Lgth Anesth esia Location [facility] 07/02/69 40 No vaginal 3175.147 g Male 04/29/72 40 No vaginal 2948.35 g Male Delivery Date: 07/02/69 Last Updated by: Nellie Rubio episiotomy Course Vital Signs Vital signs: Vital Signs Temperature 99.1 F 11/26/21 18:02 Pulse 90 11/26/21 18:02 Respiratory Rate 14 11/26/21 18:02 Blood Pressure 93/77 L 11/26/21 18:02 Pulse Oximetry 94 11/26/21 18:02 Temperature 99.1 F 11/26/21 18:02 Temperature Source Temporal Artery Scan 11/26/21 18:02 Pulse 90 11/26/21 18:02 Respiratory Rate 14 11/26/21 18:02 Blood Pressure 93/77 L 11/26/21 18:02 Blood Pressure Position Supine 11/26/21 18:02 Pulse Oximetry 94 11/26/21 18:02 Oxygen Delivery Method Room Air 11/26/21 18:02 Oxygen Flow Rate 0 11/26/21 18:02 Pain Level 10 11/26/21 18:02
--- NOTE | 2021-11-26 18:30 | RT.EKG_ITS ---
APPROVED REPORT Exam: Resting ECG Reason for Exam: weakness, nause Patient Location: E HR:81 bpm ECG Measurements Heart Rate 81 AXIS CA 183 P 64 QRSd 73 QRS 26 QT 353 T 13 QTc 409 Conclusion Sinus rhythm...normal P axis, V-rate 60- 99. Sinus. Normal axis. No STEMI. I have reviewed and interpreted ECG and agree with software generated interpretation.
--- NOTE | 2021-11-26 18:30 | DI.RAD_ITS ---
Exam(s) XR PORTABLE CHEST AP EXAM: XR PORTABLE CHEST AP CLINICAL HISTORY: fever, shortness of breath TECHNIQUE: COMPARISON: CR XR CHEST 2V PA LATERAL from 07/01/2021 FINDINGS: The heart appears mildly enlarged although this made be due to AP technique. There is mild prominenc e of upper lobe pulmonary vasculature suggesting pulmonary venous hypertension. No gross consolidati on on this AP film. Question slight prominence of interstitial markings, early pulmonary edema not e xcluded. Follow-up PA and lateral chest recommended. IMPRESSION: RADIATION DOSE DELIVERED: Total DLP
[2021-11-26] MEDS: Prochlorperazine 10 MG/2 ML VIAL 5 MG IVP ×2 (18:59→20:51)
[2021-11-26 19:01] LABS: Abs Immature Grans 0.04 10^3/uL (0.0-0.06); Absolute Basophil Count 0.02 10^3/uL (0.0-0.2); Absolute Lymphocyte Count 0.54 10^3/uL (1.2-3.4); Absolute Monocyte Count 0.87 10^3/uL (0.1-0.8); Absolute Neutrophil Count 8.35 10^3/uL (1.2-6.7); Basophils % 0.2; HGB 13.5 g/dL (11.2-15.7); Immature Grans % 0.4; Lymphocytes % 5.5; MCH 28.4 pg (27.0-33.0); MCHC 33.8 % (32.0-36.0); MCV 84 fL (80-95); MPV 10.4 fL (8.0-11.0); Monocytes % 8.9; Platelet Count 198 10^3/uL (130-400); RBC 4.76 10^6/uL (3.93-5.22); RDW 12.7 % (11.7-14.6); RDW-SD 38.9 fL; WBC 9.82 10^3/uL (4.4-10.8)
[2021-11-26] MEDS: DOXYCYCLINE 100 MG in Normal Saline 100 ML IVPB (19:09)
[2021-11-26 19:14] LABS: ALT 18 U/L (14-59); AST 13 U/L (15-37); Albumin 3.5 g/dL (3.4-5.0); Alkaline Phosphatase 75 U/L (46-116); BUN 9 mg/dL (7-18); Bilirubin, Total 0.9 mg/dL (0.2-1.0); CREATININE 0.9 mg/dL (0.55-1.02); Calcium 8.6 mg/dL (8.5-10.1); Chloride 96 mmol/L (98-107); Glucose 145 mg/dL (74-106); Potassium 3.3 mmol/L (3.5-5.1); Sodium 134 mmol/L (136-145); Total Protein 6.9 g/dL (6.4-8.2)
[2021-11-26 19:15] LABS: Lipase 15 U/L (73-393)
--- NOTE | 2021-11-26 19:16 | DI.VRAD_ITS ---
PROCEDURE INFORMATION: Exam: XR Chest Exam date and time: 11/26/2021 6:38 PM Age: 76 years old Clinical indication: Fever and shortness of breath TECHNIQUE: Imaging protocol: Radiologic exam of the chest. Views: 1 view. COMPARISON: CR XR CHEST 2V PA LATERAL 07/01/2021 2:59 PM FINDINGS: Lungs: There is pulmonary venous congestion. There is diffuse interstitial edema. Underlying inflammatory or infectious process not excluded. Pleural spaces: No evidence of pleural effusions. No evidence of pneumothorax. Heart/Mediastinum: The heart is enlarged. There is prominence of the mediastinum. Vasculature: The aorta is torturous and ectatic. Bones/joints: The skeletal structures and soft tissues show no evidence of fracture or other acute processes. Soft tissues: The soft tissues of the extrathoracic region are unremarkable. IMPRESSION: Probable congestive heart failure. Underlying inflammatory or infectious process not excluded. Dictated and Authenticated by: John Cueva MD. Ordering:ROSAS Choe MD
[2021-11-26 19:37] LABS: COVID-19 PCR Negative (Negative); Influenza A PCR Negative (Negative); Influenza B PCR Negative (Negative); RSV PCR Negative (Negative)
[2021-11-26] MEDS: VANCOMYCIN 2,000 MG in Normal Saline 500 ML 250 MG IVPB (19:51)
[2021-11-26 20:37] LABS: Bilirubin Negative (Negative); Blood Trace-intact (Negative); Clarity Clear (Clear); Glucose Negative (Negative); Ketones Trace mg/dL (Negative); Leukocyte Esterase Negative (Negative); Nitrite Negative (Negative); Urobilinogen 0.2 EU/dL (Up TO 0.2)
[2021-11-26] MEDS: Acetaminophen 325 MG TAB PO (20:50)
[2021-11-26] MEDS: Lactated Ringers 1,000 ML 1000 ML IV (20:51)
[2021-11-26] MEDS: Normal Saline 1,000 ML 1000 ML IV (20:51)
[2021-11-26 20:56] LABS: Bacteria Negative HPF (Negative); Casts Negative LPF (Negative); Crystals Negative HPF (Negative); Epithelial Cells Negative HPF (Negative); Mucus Negative (Negative); Other Cells Few Transitional (Negative); WBC Negative HPF (0-5)
[2021-11-26 20:57] LABS: C & S Indicated? No
--- NOTE | 2021-11-26 22:03 | ED.GENADUL_ITS ---
Discharge Plan Disposition Patient Disposition: [facility] INPATIENT Condition: Stable Discharge Details Clinical Impression: Cellulitis of left breast Primary Care Provider: Geoff Leiva ED Provider: Daija Leach Home Meds and New Rx's Prescriptions: No Action fluticasone propionate 50 mcg/actuation spray,suspension 1 spray intranasal DAILY Rx Instructions: administer into each nostril lubiprostone [Amitiza] 8 mcg capsule 8 mcg PO DAILY aripiprazole 5 mg tablet 5 mg PO QHS metformin 500 mg tablet 500 mg PO DAILY sucralfate [Carafate] 1 gram tablet 1 g PO BID Label Comments: with meals pantoprazole [Protonix] 40 mg tablet,delayed release (DR/EC) 40 mg PO DAILY Qty: 30 12RF metoprolol succinate 50 MG tablet extended release 24 hr 12.5 mg PO BID Label Comments: 06/11/17 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 and takes half of that daily.DCW clonazepam 0.5 mg tablet 0.5 mg PO BID PRN Label Comments: Take 1 tablet by mouth once a day as directed for panic attacks duloxetine [Cymbalta] 30 mg capsule,delayed release(DR/EC) 60 mg PO QHS trazodone 50 mg tablet 50 mg PO QHS Label Comments: 1/2 tp 1 tab po HS lovastatin 40 MG tablet 40 mg PO HS hydrochlorothiazide 25 MG tablet 25 mg PO DAILY AM oxybutynin chloride 5 MG tablet 5 mg PO TID epinephrine 0.3 MG/SYR auto-injector 0.3 mg IJ PRN PRN albuterol sulfate [ProAir HFA] 8.5 GM HFA aerosol inhaler 2 puff Inhalation Q4H PRN PRNQty: 1 0RF Rx Instructions: TO GET PEAK FLOW UP TOWARDS 400 pregabalin [Lyrica] 50 MG capsule 150 mg PO BID cholecalciferol (vitamin D3) [Vitamin D3] 25 mcg (1,000 unit) Tablet 25 mcg PO DAILY fluoxetine 40 mg capsule 20 mg PO DAILY tramadol 50 mg tablet 100 mg PO Q8H PRN PRN Label Comments: 2 tabs BID PRN and one at midday doxycycline hyclate 100 mg tablet 100 mg PO BID Qty: 20 0RF Medical Decision Making Patient is feeling symptomatically improved is actually benign, however she appears ill and I think would benefit from IV antibiotics, Lyme titer is pending Administer doxycycline and vancomycin for staph and treat for possible Lyme Chest x-ray does not show evidence of infectious etiology of symptoms Urinalysis does not show evidence of infectious etiology COVID and flu negative Agreeable to admission at this time Headache has improved, no evidence of meningismus Case discussed with Dr. Mora who is agreeable to admitting the patient Of note, initial blood pressure was 95/77, this was incorrect I recycled it in the room and it was 140/70, likely secondary to cuff placement Her temperature 101.8 orally at this time and she is given total treatment fluids, doxycycline, vancomycin Medical Records Medical records reviewed: Yes I reviewed the patient's medical records. Lab Data Lab results reviewed: Yes I reviewed the patient's lab results. HPI General Date/Time Provider Initiated Documentation: 11/26/21 17:58 . HPI Narrative: 76-year-old female with history of left breast tenderness and lesion. She state s she was placed on doxycycline yesterday. She states that she currently works today. She is been nauseous with headache and chills and unable to hold down her medications. She denies known tick bite. She states that the rash is worse today. She states at home her temp is 103. She denies any urinary symptoms or shortness of breath. She denies any calf pain or swelling. She denies history of breast cancer. She states that she did not have any rashes or lesions prior to yesterday. Took her dose of doxycycline yesterday but did not take today. Related Data Home Medications Medication Instructions Recorded Confirmed hydrochlorothiazide 25 mg tablet 25 mg PO DAILY AM 08/23/12 11/26/21 lovastatin 40 mg tablet 40 mg PO HS 08/23/12 11/26/21 oxybutynin chloride 5 mg tablet 5 mg PO TID 08/23/12 11/26/21 metoprolol succinate 50 mg 12.5 mg PO BID 09/15/14 11/26/21 tablet,extended release 24 hr epinephrine 0.3 mg/0.3 mL 0.3 mg IJ PRN PRN 12/29/14 11/26/21 injection, auto-injector albuterol sulfate 90 mcg/actuation 2 puff inhalation Q4H PRN PRN ##1 05/20/15 11/26/21 aerosol inhaler (ProAir HFA) pregabalin 50 mg capsule (Lyrica) 150 mg PO BID 11/22/15 11/26/21 pantoprazole 40 mg tablet,delayed 40 mg PO DAILY #30 tabs 09/07/19 11/26/21 release (Protonix) cholecalciferol (vitamin D3) 25 25 mcg PO DAILY 09/14/20 11/26/21 mcg (1,000 unit) tablet (Vitamin D3) clonazepam 0.5 mg tablet 0.5 mg PO BID PRN 09/24/20 11/26/21 aripiprazole 5 mg tablet 5 mg PO QHS 09/12/21 11/26/21 duloxetine 30 mg capsule,delayed 60 mg PO QHS 09/12/21 11/26/21 release (Cymbalta) fluoxetine 40 mg capsule 20 mg PO DAILY 09/12/21 11/26/21 fluticasone propionate 50 1 spray intranasal DAILY 09/12/21 11/26/21 mcg/actuation nasal spray,suspension lubiprostone 8 mcg capsule 8 mcg PO DAILY 09/12/21 11/26/21 (Amitiza) metformin 500 mg tablet 500 mg PO DAILY 09/12/21 11/26/21 sucralfate 1 gram tablet (Carafate) 1 g PO BID 09/12/21 11/26/21 tramadol 50 mg tablet 100 mg PO Q8H PRN PRN 09/12/21 11/26/21 trazodone 50 mg tablet 50 mg PO QHS 09/12/21 11/26/21 doxycycline hyclate 100 mg tablet 100 mg PO BID #20 tabs 11/25/21 11/26/21 Previous Rx's Medication Instructions Recorded albuterol sulfate 90 mcg/actuation 2 puff inhalation Q4H PRN PRN ##1 05/20/15 aerosol inhaler (ProAir HFA) pantoprazole 40 mg tablet,delayed 40 mg PO DAILY #30 tabs 09/07/19 release (Protonix) doxycycline hyclate 100 mg tablet 100 mg PO BID #20 tabs 11/25/21 Allergies Allergy/AdvReac Type Severity Reaction Status Date / Time metronidazole Allergy Severe Anaphylaxsi Verified 11/26/21 18:06 s Sulfa (Sulfonamide Allergy Severe anaphalaxis Verified 11/26/21 18:06 Antibiotics) ibuprofen AdvReac Intermediate Gastro Verified 11/26/21 18:06 upset oxycodone [From Percocet] AdvReac Intermediate Other (See Verified 11/26/21 18:06 Comment) NSAIDS (Non-Steroidal AdvReac Itching Verified 11/26/21 18:06 Anti-Inflamma spider venom AdvReac Itching Verified 11/26/21 18:06 General Stated Complaint: GenMedical MIR: 3 Review of Systems All systems reviewed & are unremarkable except as noted in HPI and below PFSH All Active Problems (Updated 11/26/21 @ 22:14 by LUPE Hardy) Cellulitis of left breast (Acute) Atrophic vaginitis (Acute) Anxiety (Chronic) Medical History anaphalaxis secondary to antibiotics 12/2013 Arthritis of left shoulder region Asthma Auditory hallucinations Benign hypertension Bile reflux gastritis Carpal tunnel syndrome Chronic pain Constipation by delayed colonic transit Depression Diabetes mellitus Esophagitis determined by endoscopy Fibromyalgia History of colon cancer (07/18/16) Hypercholesterolemia Mild cognitive impairment Obesity Osteoarthritis Overactive bladder Polyp of colon (10/05/12) Laparoscopic sigmoid hemicolectomy by Dr. Jose David Renteria 10/05/2012. 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 Hx of partial cystectomy Hx of shoulder surgery Alen Fundoplication Open Carpal Tunnel release R with trigger release Repair of umbilical hernia Replacement of total knee joint Right & LEFT varicose vein stripping Family History Other Diabetes Heart disease Hyperlipidemia Mental disorder Osteoporosis Personal history of malignant neoplasm Social History Smoking/Tobacco Use Status: Former Tobacco Use Quit Date: 06/01/79 Smoking risk assessment performed?: Yes Alcohol Intake: current Alcohol Intake frequency: a few times a month Alcohol type: beer Drug use: Rarely Substance use type: marijuana Details: Pt states she used to use medical marijuana but has not for about 6 months. 09/12/21- pt rpeorts using marijuana at night only current occupation: Retired Current gender identity: female Darcy/Judaism: Pentacostal Special darcy needs: No Do you feel safe at home: Yes Do you feel safe in your relationship?: Yes Female Reproductive History Menstrual Age of Menarche: 15 Duration of menses: 6-7 days control method: none Menopause type: natural Date of menopause: 06/01/05 History History 2 Para 2 Hx # Term Pregnancies Multiple births Hx # Pregnancies Ectopic pregnancies AB induced Hx Number of Living Children AB spontaneous Past Pregnancies Del. Date GA/Weeks # Preg Succ Route Wgt Sex Labor Lgth Anesth esia Location [facility] 07/02/69 40 No vaginal 3175.147 g Male 04/29/72 40 No vaginal 2948.35 g Male Delivery Date: 07/02/69 Last Updated by: Nellie Rubio episiotomy Exam Const General: cooperative and ill appearing HENMT Other: Minus mucous membranes Eyes Pupils: PERRL Chest Chest/axillae images: 1. Approximately 7 inch lesion 2. Approximately 2 inch area of induration and 1 vesicle, no drainage from nipple, no crepitus Resp Effort & Inspection: normal respiratory effort Auscultation: clear to auscultation bilaterally Cardio Rate: regular rate Rhythm: regular rhythm GI Inspection: normal to inspection Skin Other: see above Neuro General: patient alert and patient oriented x3 Extrem Other: no calf swelling or tenderness Course Vital Signs Vital signs: Vital Signs Temperature 37.3 C 11/26/21 18:02 Pulse 90 11/26/21 18:02 Respiratory Rate 14 11/26/21 18:02 Blood Pressure 93/77 L 11/26/21 18:02 Pulse Oximetry 94 11/26/21 18:02 Temperature 38.8 C H 11/26/21 18:10 Temperature Source Oral 11/26/21 18:10 Pulse 81 11/26/21 21:16 Respiratory Rate 14 11/26/21 18:02 Respiratory Effort Non-Labored 11/26/21 18:07 Respiratory Depth Normal 11/26/21 18:07 Respiratory Pattern Normal 11/26/21 18:07 Blood Pressure 118/86 11/26/21 21:16 Blood Pressure Mean 93 11/26/21 21:16 Blood Pressure Position Supine 11/26/21 18:02 Pulse Oximetry 93 11/26/21 21:30 Oxygen Delivery Method Room Air 11/26/21 18:02 Oxygen Flow Rate 0 11/26/21 18:02 Pain Level 10 11/26/21 18:02 Lab/Test Results Lab/Test Results: 11/26/21 20:10 Blood Blood Culture - Pending 11/26/21 18:45 Blood Blood Culture - Pending Laboratory Tests Range/Units 11/26/21 11/26/21 11/26/21 18:33 18:45 18:45 WBC (4.4-10.8) 10^3/uL RBC (3.93-5.22) 10^6/uL Hgb (11.2-15.7) g/dL Hct (36.0-46.0) % MCV (80-95) fL MCH (27.0-33.0) pg MCHC (32.0-36.0) % RDW (11.7-14.6) % Plt Count (130-400) 10^3/uL MPV (8.0-11.0) fL Immature Gran % Neutrophils % Lymphocytes % Monocytes % Eosinophils % Basophils % Nucleated RBC % (0.0-0.3) % Absolute Neutrophils (1.2-6.7) 10^3/uL Absolute Lymphocytes (1.2-3.4) 10^3/uL Absolute Monocytes (0.1-0.8) 10^3/uL Absolute Eosinophils (0.0-0.7) 10^3/uL Absolute Basophils (0.0-0.2) 10^3/uL VBG Lactate (0.6-1.4) mmol/L 1.0 Sodium (136-145) mmol/L 134 L Potassium (3.5-5.1) mmol/L 3.3 L Chloride (98-107) mmol/L 96 L Carbon Dioxide (21.0-32.0) mmol/L 31.0 Anion Gap (3-11) mmol/L 7.0 BUN (7-18) mg/dL 9 Creatinine (0.55-1.02) mg/dL 0.9 Estimated GFR/1.73 m2 (mL/min/1.73m2) >= 60.00 Glucose (74-106) mg/dL 145 H Calcium (8.5-10.1) mg/dL 8.6 Total Bilirubin (0.2-1.0) mg/dL 0.9 AST (15-37) U/L 13 L ALT (14-59) U/L 18 Alkaline Phosphatase (46-116) U/L 75 Total Protein (6.4-8.2) g/dL 6.9 Albumin (3.4-5.0) g/dL 3.5 Lipase (73-393) U/L 15 Urine Color (Yellow) Urine Clarity (Clear) Urine pH (5-8) Ur Specific [place] (1.005-1.025) Urine Protein (Negative) mg/dL Urine Ketones (Negative) mg/dL Urine Blood (Negative) Urine Nitrite (Negative) Urine Bilirubin (Negative) Urine Urobilinogen (Up TO 0.2) EU/dL Ur Leukocyte Esterase (Negative) Urine RBC (0-2) HPF Urine WBC (0-5) HPF Ur Epithelial Cells (Negative) HPF Urine Crystals (Negative) HPF Urine Bacteria (Negative) HPF Urine Casts (Negative) LPF Urine Mucus (Negative) Urine Other (Negative) Ur Culture Indicated? Urine Glucose (Negative) mg/dL COVID-19 Source SARS-CoV-2 (PCR) (Negative) Influenza Type A (PCR) (Negative) Influenza Type B (PCR) (Negative) RSV (PCR) (Negative) Range/Units 11/26/21 11/26/21 11/26/21 18:45 18:45 19:27 WBC (4.4-10.8) 10^3/uL 9.82 RBC (3.93-5.22) 10^6/uL 4.76 Hgb (11.2-15.7) g/dL 13.5 Hct (36.0-46.0) % 40.0 MCV (80-95) fL 84 MCH (27.0-33.0) pg 28.4 MCHC (32.0-36.0) % 33.8 RDW (11.7-14.6) % 12.7 Plt Count (130-400) 10^3/uL 198 MPV (8.0-11.0) fL 10.4 Immature Gran % 0.4 Neutrophils % 85.0 Lymphocytes % 5.5 Monocytes % 8.9 Eosinophils % 0.0 Basophils % 0.2 Nucleated RBC % (0.0-0.3) % 0.0 Absolute Neutrophils (1.2-6.7) 10^3/uL 8.35 H Absolute Lymphocytes (1.2-3.4) 10^3/uL 0.54 L Absolute Monocytes (0.1-0.8) 10^3/uL 0.87 H Absolute Eosinophils (0.0-0.7) 10^3/uL 0.00 Absolute Basophils (0.0-0.2) 10^3/uL 0.02 VBG Lactate (0.6-1.4) mmol/L Sodium (136-145) mmol/L Potassium (3.5-5.1) mmol/L Chloride (98-107) mmol/L Carbon Dioxide (21.0-32.0) mmol/L Anion Gap (3-11) mmol/L BUN (7-18) mg/dL Creatinine (0.55-1.02) mg/dL Estimated GFR/1.73 m2 (mL/min/1.73m2) Glucose (74-106) mg/dL Calcium (8.5-10.1) mg/dL Total Bilirubin (0.2-1.0) mg/dL AST (15-37) U/L ALT (14-59) U/L Alkaline Phosphatase (46-116) U/L Total Protein (6.4-8.2) g/dL Albumin (3.4-5.0) g/dL Lipase (73-393) U/L Urine Color (Yellow) Yellow Urine Clarity (Clear) Clear Urine pH (5-8) 8.0 Ur Specific [place] (1.005-1.025) 1.020 Urine Protein (Negative) mg/dL 30 H Urine Ketones (Negative) mg/dL Trace H Urine Blood (Negative) Trace-intact H Urine Nitrite (Negative) Negative Urine Bilirubin (Negative) Negative Urine Urobilinogen (Up TO 0.2) EU/dL 0.2 Ur Leukocyte Esterase (Negative) Negative Urine RBC (0-2) HPF 5-10 H Urine WBC (0-5) HPF Negative Ur Epithelial Cells (Negative) HPF Negative Urine Crystals (Negative) HPF Negative Urine Bacteria (Negative) HPF Negative Urine Casts (Negative) LPF Negative Urine Mucus (Negative) Negative Urine Other (Negative) Few Transitional Ur Culture Indicated? No Urine Glucose (Negative) mg/dL Negative COVID-19 Source Not Applicable SARS-CoV-2 (PCR) (Negative) Negative Influenza Type A (PCR) (Negative) Negative Influenza Type B (PCR) (Negative) Negative RSV (PCR) (Negative) Negative PAWSS Have you Been Recently Intoxicated or Drunk Within the Last 30 days?: No Have you Ever Experienced Previous Episodes of Alcohol Withdrawal?: No Have you ever Experienced Withdrawal Seizures?: No Have you ever Experienced Delirium Tremens(DT)s?: No Have you ever undergone Alcohol Rehabilitation Treatment (i.e, inpt ot outpatient treatment programs)?: No Have you ever Experienced Blackouts?: No Have you ever Combined Alcohol with other Downers within the last 90 days?: No Have you ever Combined Alcohol with any other Substance of Abuse during the last 90 days?: No Positive Blood Alcohol level on Presentation? [PCS.BAL]: No Evidence of Increased Autonomic Activity (i.e. HR>120, tremor, sweating, agitation, nausea)?: No Result: 0
--- NOTE | 2021-11-26 22:11 | W.PM.HP.N ---
Date of service: 11/26/21 Time of Service: 22:00 Assessment and Plan Assessment and plan (1) Lyme disease: Status: Acute Assessment and plan: Continue IV doxycycline. Due to presence of pulmonary findings on the CXR, I wonder if the patient does not also have anaplasmosis. Doxycycline should cover both. Await tick panel. (2) Cellulitis of left breast: Status: Acute Assessment and plan: I think that the patient has a component of secondary cellulitis on top of her Lyme disease rash. Continue vancomycin started in the ED. I also added cefepime for pseudomonas coverage since the rash now appears to have vessicles (it is possible, however, that vessicles are just a part of her erythema migrans rash - it can happen in 8% of the people in one study in [place] - low threshold to discontinue). Await blood cultures. (3) Drug-induced photosensitivity: Status: Acute Assessment and plan: Patient has evidence of erythema in sun exposed areas, was started on doxycycline yesterday and noted that her symptoms got worse after swimming in a pond today (it was a kumar day). I suspect that the patient has a component of sun sensitivity. She should be educated on staying away from the sun while on doxycycline. (4) Hyponatremia: Status: Acute Assessment and plan: In setting of dehydration and a tick illness (anaplasmosis can result in electrolyte abnormalities). Hydrate. Recheck labs in am. Hold HCTZ. (5) Hypokalemia: Status: Acute Assessment and plan: Replete, check magnesium. (6) Pulmonary edema: Status: Acute Assessment and plan: Not clinically, but on CXR. Check troponin, proBNP. Consider an echocardiogram. (7) Non-insulin treated type 2 diabetes mellitus: Status: Acute Assessment and plan: Continue metformin. Cover with SSI (8) Benign hypertension: Assessment and plan: Hold HCTZ in setting of dehydration. Continue toprol XL. (9) Dehydration: Status: Acute Assessment and plan: IVF (10) DVT prophylaxis: Status: Acute Assessment and plan: SC enoxaparin (11) Discharge planning issues: Status: Acute Assessment and plan: Full code History of Present Illness History of Present Illness Chief Complaint: Painful left breast rash, fever, headache, nausea Narrative: Ms Luong is a 76 year old female with PMHx of NIDDM2, hypertension, hyperlipidemia, DENNIS not compliant with CPAP, obesity with BMI of 43.6, who presented to [facility] ED today after being seen there yesterday c/o worsening L breast redness, pain, persistent headache, dizziness, and nausea. The patient was seen in the ED yesterday for a bull's eye rash on L breast, was clinically diagnosed with Lyme disease and sent home with a prescription for doxycycline. The patient states that the symptoms preceded taking doxycycline and have been going on for 2-3 days. The patient noticed that symptoms got worse after swimming in the pond today (it was a kumar day). She did not actually see the tick on her. She denies abdominal pain, has been able to pass flatus, and has not actually vomited. In the ED today, she had a fever of 38.8 orally. The patient was visibly dehydrated. She received IVF, IV doxycycline and vancomycin for worsening erythema of her L breast, and compazine for her headache and nausea. She also received tylenol. With these measures she felt better. Hospitalist admission was requested. Review of Systems All systems reviewed & are unremarkable except as noted in HPI and below PFSH All Active Problems (Updated 11/27/21 @ 00:12 by Enedleia Mora MD) Dehydration (Acute) Non-insulin treated type 2 diabetes mellitus (Acute) Discharge planning issues (Acute) DVT prophylaxis (Acute) Pulmonary edema (Acute) Hypokalemia (Acute) Hyponatremia (Acute) Drug-induced photosensitivity (Acute) Lyme disease (Acute) Cellulitis of left breast (Acute) Atrophic vaginitis (Acute) Anxiety (Chronic) Medical History anaphalaxis secondary to antibiotics 12/2013 Arthritis of left shoulder region Asthma Auditory hallucinations Benign hypertension Bile reflux gastritis Carpal tunnel syndrome Chronic pain Constipation by delayed colonic transit Depression Diabetes mellitus Esophagitis determined by endoscopy Fibromyalgia History of colon cancer (07/18/16) Hypercholesterolemia Mild cognitive impairment Obesity Osteoarthritis Overactive bladder Polyp of colon (10/05/12) Laparoscopic sigmoid hemicolectomy by Dr. Jose David Renteria 10/05/2012. 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 Hx of partial cystectomy Hx of shoulder surgery Alen Fundoplication Open Carpal Tunnel release R with trigger release Repair of umbilical hernia Replacement of total knee joint Right & LEFT varicose vein stripping Family History Other Diabetes Heart disease Hyperlipidemia Mental disorder Osteoporosis Personal history of malignant neoplasm Social History Smoking/Tobacco Use Status: Former Tobacco Use Quit Date: 06/01/79 Smoking risk assessment performed?: Yes Alcohol Intake: current Alcohol Intake frequency: a few times a month Alcohol type: beer Drug use: Rarely Substance use type: marijuana Details: Pt states she used to use medical marijuana but has not for about 6 months. 09/12/21- pt rpeorts using marijuana at night only current occupation: Retired Current gender identity: female Darcy/Jain: Pentacostal Special darcy needs: No Do you feel safe at home: Yes Do you feel safe in your relationship?: Yes Female Reproductive History Menstrual Age of Menarche: 15 Duration of menses: 6-7 days control method: none Menopause type: natural Date of menopause: 06/01/05 History History 2 Para 2 Hx # Term Pregnancies Multiple births Hx # Pregnancies Ectopic pregnancies AB induced Hx Number of Living Children AB spontaneous Past Pregnancies Del. Date GA/Weeks # Preg Succ Route Wgt Sex Labor Lgth Anesthesia Location Prov Complic 07/02/69 40 No vaginal 3175.147 g Male 04/29/72 40 No vaginal 2948.35 g Male Delivery Date: 07/02/69 Last Updated by: Nellie Rubio episiotomy Meds Allergies and Home Medications Allergies Allergy/AdvReac Type Severity Reaction Status Date / Time metronidazole Allergy Severe Anaphylaxsi Verified 11/26/21 18:06 s Sulfa (Sulfonamide Allergy Severe anaphalaxis Verified 11/26/21 18:06 Antibiotics) ibuprofen AdvReac Intermediate Gastro Verified 11/26/21 18:06 upset oxycodone [From Percocet] AdvReac Intermediate Other (See Verified 11/26/21 18:06 Comment) NSAIDS (Non-Steroidal AdvReac Itching Verified 11/26/21 18:06 Anti-Inflamma spider venom AdvReac Itching Verified 11/26/21 18:06 Home Medications Medication Instructions Recorded Confirmed Type hydrochlorothiazide 25 mg tablet 25 mg PO DAILY AM 08/23/12 11/26/21 History lovastatin 40 mg tablet 40 mg PO HS 08/23/12 11/26/21 History oxybutynin chloride 5 mg tablet 5 mg PO TID 08/23/12 11/26/21 History metoprolol succinate 50 mg 12.5 mg PO BID 09/15/14 11/26/21 History tablet,extended release 24 hr epinephrine 0.3 mg/0.3 mL 0.3 mg IJ PRN PRN 12/29/14 11/26/21 History injection, auto-injector albuterol sulfate 90 mcg/actuation 2 puff inhalation Q4H PRN PRN ##1 05/20/15 11/26/21 Rx aerosol inhaler (ProAir HFA) pregabalin 50 mg capsule (Lyrica) 150 mg PO BID 11/22/15 11/26/21 History pantoprazole 40 mg tablet,delayed 40 mg PO DAILY #30 tabs 09/07/19 11/26/21 Rx release (Protonix) cholecalciferol (vitamin D3) 25 25 mcg PO DAILY 09/14/20 11/26/21 History mcg (1,000 unit) tablet (Vitamin D3) clonazepam 0.5 mg tablet 0.5 mg PO BID PRN 09/24/20 11/26/21 History aripiprazole 5 mg tablet 5 mg PO QHS 09/12/21 11/26/21 History duloxetine 30 mg capsule,delayed 60 mg PO QHS 09/12/21 11/26/21 History release (Cymbalta) fluoxetine 40 mg capsule 20 mg PO DAILY 09/12/21 11/26/21 History fluticasone propionate 50 1 spray intranasal DAILY 09/12/21 11/26/21 History mcg/actuation nasal spray,suspension lubiprostone 8 mcg capsule 8 mcg PO DAILY 09/12/21 11/26/21 History (Amitiza) metformin 500 mg tablet 500 mg PO DAILY 09/12/21 11/26/21 History sucralfate 1 gram tablet (Carafate) 1 g PO BID 09/12/21 11/26/21 History tramadol 50 mg tablet 100 mg PO Q8H PRN PRN 09/12/21 11/26/21 History trazodone 50 mg tablet 50 mg PO QHS 09/12/21 11/26/21 History doxycycline hyclate 100 mg tablet 100 mg PO BID #20 tabs 11/25/21 11/26/21 Rx Exam Narrative Exam Narrative: General: Anxious obese female who looks like she is not feeling well, A&ox3, areas of erythema on her neck visible Neurological: A&Ox3, no focal deficits Psychiatric: Anxious Skin: Areas of erythema on the neck; L breast with an erythema migrans lesion with a vessicular border (vessicles are filled with clear fluid); erythema extends beyond the bull's eye around the left breast HEENT: Atraumatic, normocephalic, EOMI, dry MM, clear ororpharynx, no submandibular or cervical lymphadenopathy, no goiter or JVD Cardiovascular: RRR, no m/r/g Lungs: CTAB Gastrointestinal: soft, nontender, nondistended Genitourinary: deferred Extremities: no edema BLE's, 2+ pedal pulses B Results Imaging Additional studies: CXR: Probable congestive heart failure. Underlying inflammatory or infectious process not excluded. Labs Result diagrams: 11/26/21 18:45 11/26/21 18:45 Labs: Laboratory Results - last 24 hr 11/26/21 11/26/21 11/26/21 18:33 18:45 18:45 WBC RBC Hgb Hct MCV MCH MCHC RDW Plt Count MPV Immature Gran % Neutrophils % Lymphocytes % Monocytes % Eosinophils % Basophils % Nucleated RBC % Absolute Neutrophils Absolute Lymphocytes Absolute Monocytes Absolute Eosinophils Absolute Basophils VBG Lactate 1.0 Sodium 134 L Potassium 3.3 L Chloride 96 L Carbon Dioxide 31.0 Anion Gap 7.0 BUN 9 Creatinine 0.9 Estimated GFR/1.73 m2 >= 60.00 Glucose 145 H Calcium 8.6 Total Bilirubin 0.9 AST 13 L ALT 18 Alkaline Phosphatase 75 Total Protein 6.9 Albumin 3.5 Lipase 15 Urine Color Urine Clarity Urine pH Ur Specific [place] Urine Protein Urine Ketones Urine Blood Urine Nitrite Urine Bilirubin Urine Urobilinogen Ur Leukocyte Esterase Urine RBC Urine WBC Ur Epithelial Cells Urine Crystals Urine Bacteria Urine Casts Urine Mucus Urine Other Ur Culture Indicated? Urine Glucose COVID-19 Source SARS-CoV-2 (PCR) Influenza Type A (PCR) Influenza Type B (PCR) RSV (PCR) 11/26/21 11/26/21 11/26/21 18:45 18:45 19:27 WBC 9.82 RBC 4.76 Hgb 13.5 Hct 40.0 MCV 84 MCH 28.4 MCHC 33.8 RDW 12.7 Plt Count 198 MPV 10.4 Immature Gran % 0.4 Neutrophils % 85.0 Lymphocytes % 5.5 Monocytes % 8.9 Eosinophils % 0.0 Basophils % 0.2 Nucleated RBC % 0.0 Absolute Neutrophils 8.35 H Absolute Lymphocytes 0.54 L Absolute Monocytes 0.87 H Absolute Eosinophils 0.00 Absolute Basophils 0.02 VBG Lactate Sodium Potassium Chloride Carbon Dioxide Anion Gap BUN Creatinine Estimated GFR/1.73 m2 Glucose Calcium Total Bilirubin AST ALT Alkaline Phosphatase Total Protein Albumin Lipase Urine Color Yellow Urine Clarity Clear Urine pH 8.0 Ur Specific [place] 1.020 Urine Protein 30 H Urine Ketones Trace H Urine Blood Trace-intact H Urine Nitrite Negative Urine Bilirubin Negative Urine Urobilinogen 0.2 Ur Leukocyte Esterase Negative Urine RBC 5-10 H Urine WBC Negative Ur Epithelial Cells Negative Urine Crystals Negative Urine Bacteria Negative Urine Casts Negative Urine Mucus Negative Urine Other Few Transitional Ur Culture Indicated? No Urine Glucose Negative COVID-19 Source Not Applicable SARS-CoV-2 (PCR) Negative Influenza Type A (PCR) Negative Influenza Type B (PCR) Negative RSV (PCR) Negative Last Vital Signs Temp 38.8 C H 11/26/21 18:10 Pulse 81 11/26/21 21:16 Resp 14 11/26/21 18:02 BP 118/86 11/26/21 21:16 Pulse Ox 93 11/26/21 21:30 PAWSS Have you Been Recently Intoxicated or Drunk Within the Last 30 days?: No Have you Ever Experienced Previous Episodes of Alcohol Withdrawal?: No Have you ever Experienced Withdrawal Seizures?: No Have you ever Experienced Delirium Tremens(DT)s?: No Have you ever undergone Alcohol Rehabilitation Treatment (i.e, inpt ot outpatient treatment programs)?: No Have you ever Experienced Blackouts?: No Have you ever Combined Alcohol with other Downers within the last 90 days?: No Have you ever Combined Alcohol with any other Substance of Abuse during the last 90 days?: No Positive Blood Alcohol level on Presentation? [PCS.BAL]: No Evidence of Increased Autonomic Activity (i.e. HR>120, tremor, sweating, agitation, nausea)?: No Result: 0
[2021-11-26] MEDS: ARIPiprazole 5 MG TAB PO (23:53)
[2021-11-26] MEDS: traZODone 50 MG TAB PO (23:54)
[2021-11-26] MEDS: DULoxetine 30 MG CAP 60 MG PO (23:55)
[2021-11-26] MEDS: clonazePAM 0.5 MG TAB PO (23:58)
[2021-11-27] VITALS (10 sets, daily range): BP systolic 111–151; BP diastolic 69–82; PULSE 68–91; RESP 17–20; TEMP 36.8–38.2; O2SAT 93–96
[2021-11-27] MEDS: Normal Saline Flush 10 ML SYR IVP ×4 (00:24→21:16)
[2021-11-27] MEDS: CEFEPIME 2 GM in Normal Saline 100 ML IVPB ×3 (00:24→23:07)
[2021-11-27] MEDS: Normal Saline 500 ML 30 ML IV (00:25)
[2021-11-27] MEDS: POTASSIUM CHLORIDE/0.9% NACL 1,000 ML 150 MEQ IV ×2 (01:58→08:44)
[2021-11-27 04:56] LABS: NT-proBNP 568 pg/mL (<300); Troponin I < 50 ng/L (<or=60)
[2021-11-27] MEDS: Docusate Sodium 100 MG CAP PO (04:59)
[2021-11-27] MEDS: Mylanta Suspension 30 ML CUP PO ×2 (04:59→18:35)
[2021-11-27] MEDS: Acetaminophen 325 MG TAB PO ×2 (05:06→19:45)
[2021-11-27] MEDS: Albuterol 2.5 MG/3 ML INH SOLN VIAL UPD (05:13)
[2021-11-27 06:44] LABS: Abs Immature Grans 0.03 10^3/uL (0.0-0.06); Absolute Basophil Count 0.03 10^3/uL (0.0-0.2); Absolute Lymphocyte Count 0.79 10^3/uL (1.2-3.4); Absolute Monocyte Count 0.88 10^3/uL (0.1-0.8); Absolute Neutrophil Count 5.35 10^3/uL (1.2-6.7); Basophils % 0.4; HGB 12.2 g/dL (11.2-15.7); Immature Grans % 0.4; Lymphocytes % 11.2; MCH 28.4 pg (27.0-33.0); MCHC 33.9 % (32.0-36.0); MCV 84 fL (80-95); MPV 10.8 fL (8.0-11.0); Monocytes % 12.4; Neutrophils % 75.6; Platelet Count 157 10^3/uL (130-400); RDW-SD 39.8 fL; WBC 7.08 10^3/uL (4.4-10.8)
[2021-11-27 06:56] LABS: Anion Gap 6.4 mmol/L (3-11); BUN 9 mg/dL (7-18); C-Reactive Protein 11.79 mg/dL (0.0-0.3); CO2 28.6 mmol/L (21.0-32.0); CREATININE 0.7 mg/dL (0.55-1.02); Calcium 8.4 mg/dL (8.5-10.1); Chloride 103 mmol/L (98-107); Glucose 137 mg/dL (74-106); Magnesium 1.5 mg/dL (1.8-2.4); Potassium 3.3 mmol/L (3.5-5.1); Sodium 138 mmol/L (136-145)
[2021-11-27] MEDS: Enoxaparin 40 MG/0.4 ML SYR SC (08:41)
[2021-11-27] MEDS: Fluticasone NASAL SPRAY 16 GM BTL NS (08:41)
[2021-11-27] MEDS: clonazePAM 0.5 MG TAB PO ×2 (08:41→21:15)
[2021-11-27] MEDS: FLUoxetine 20 MG CAP PO (08:42)
[2021-11-27] MEDS: Pantoprazole 40 MG TABCR PO (08:42)
[2021-11-27] MEDS: metFORMIN 500 MG TAB PO (08:43)
[2021-11-27] MEDS: Metoprolol CR 25 MG TABCR 12.5 MG PO ×2 (08:43→19:45)
[2021-11-27] MEDS: Oxybutynin 5 MG TAB PO ×3 (08:43→19:44)
[2021-11-27] MEDS: Pregabalin 50 MG CAP 150 MG PO ×2 (08:44→19:43)
[2021-11-27] MEDS: Insulin Aspart 300 UNITS/3 ML PEN SC ×3 (08:44→17:31)
[2021-11-27] MEDS: Sucralfate 1 GM TAB PO ×2 (08:44→19:45)
[2021-11-27] MEDS: Cholecalciferol (Vitamin D3) 1,000 UNIT TAB 1000 UNITS PO (08:44)
--- NOTE | 2021-11-27 09:30 | INITIAL_ITS ---
- If Service Date Differs Date of service: 11/27/21 Time of Service: 09:30 Care Management Initial Assess REASON FOR HOSPITALIZATION:: Lyme Disease PAST MEDICAL HISTORY/PAST SURGICAL HISTORY:: All Active Problems (Updated 11/27/21 @ 00:12 by Enedelia Mora MD). Dehydration (Acute). Non-insulin treated type 2 diabetes mellitus (Acute). Discharge planning issues (Acute). DVT prophylaxis (Acute). Pulmonary edema (Acute). Hypokalemia (Acute). Hyponatremia (Acute). Drug-induced photosensitivity (Acute). Lyme disease (Acute). Cellulitis of left breast (Acute). Atrophic vaginitis (Acute). Anxiety (Chronic). Medical History . anaphalaxis secondary to antibiotics 12/2013. Arthritis of left shoulder region. Asthma. Auditory hallucinations. Benign hypertension. Bile reflux gastritis. Carpal tunnel syndrome. Chronic pain. Constipation by delayed colonic transit. Depression. Diabetes mellitus. Esophagitis determined by endoscopy. Fibromyalgia. History of colon cancer (07/18/16). Hypercholesterolemia. Mild cognitive impairment. Obesity. Osteoarthritis. Overactive bladder. Polyp of colon (10/05/12). Laparoscopic sigmoid hemicolectomy by Dr. Jose David Renteria 10/05/2012. Primary osteoarthritis of left knee (02/18/17). Rectocele. Sleep apnea. Spinal stenosis of lumbar region. Vitamin D deficiency. Surgical History . Colectomy. 08/2012. EGD - MAC (04/28/17). H/O removal of cyst. Bartholin cyst excision 2019 - 4cm cyst. Hernia Repair, Incisional. History of colonoscopy (~07/2019). History of esophagogastroduodenoscopy (EGD) (~07/2019). History of total left knee replacement (TKR). 06/18/2017. Hx of partial cystectomy. Hx of shoulder surgery. Alen Fundoplication. Open Carpal Tunnel release. R with trigger release. Repair of umbilical hernia. Replacement of total knee joint. Right & LEFT. varicose vein stripping PREVIOUS FUNCTIONAL STATUS/SOCIAL/FAMILY SUPPORTS:: Neema lives in a single family home in [place], [place] with her Holden. They have 2 sons and 3 grandsons. One son lives in [place] with his family but is here for a 3 week visit and the other lives in [place]. Neema is independent at baseline and receives no community services. 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 CURRENT FUNCTIONAL STATUS:: Neema was sitting up in bed when CM met with her. She was pleasant and agreeable to conversation. Neema stated that she feels much, much better than when she first came to the hospital. She did state that she still has some nausea and her headache has returned but that she is not nearly as sick as she has been for the past few days. She was febrile during the night but so far today her temperature has been within normal limits. ADVANCE DIRECTIVES:: none on file Has patient been provided with info about the portal/API?: Yes Did the patient sign up for the portal?: No CODE STATUS:: Full Code INSURANCE COVERAGE / FINANCIAL ISSUES:: Medicare. Medicaid CURRENT HOME/COMMUNITY SERVICES/EQUIPMENT:: none PRIMARY CARE PHYSICIAN:: Geoff Leiva POTENTIAL DISCHARGE NEEDS:: follow up with PCP and plan of care PATIENT/FAMILY EDUCATION NEEDS:: Review of discharge instructions, follow up plan, limitations, activity. medications, Ask Me Three. TRANSPORTATION:: via private vehicle with family PLAN:: Neema will be discharged home with no new services. She will follow up with her PCP and plan of care and transport with family. CM will continue to support Neema and assess for discharge planning concerns.
[2021-11-27] MEDS: DOXYCYCLINE 100 MG in Normal Saline 100 ML IVPB ×2 (09:46→21:17)
[2021-11-27 09:49] LABS: Lab Add On Test DONE
[2021-11-27] MEDS: MAGNESIUM SULFATE 2 GM/50 ML BAG IVPB (11:30)
--- NOTE | 2021-11-27 11:42 | W.DIABETESNO ---
Date of service: 11/27/21 Time of Service: 11:42 Diabetes Note Reason for Visit: Diabetes education consult request NOTE: Ms. Luong takes 500 mg metformin at home for her diabetes. Her A1C is 6.4 which is at goal and her previous A1C's have been at goal. Diabetes education is not needed at this time but will check in with patient to see if she is interested in weight management as her BMI is 42.7kg/m2. Time Spent in Nutritional Counseling and Treatment: 0
--- NOTE | 2021-11-27 12:41 | IN_ITS ---
Date of service: 11/27/21 Time of Service: 12:15 PT Notes Visit Reasons: Lyme Disease,Secondary Breast Cellulitis Inpatient Physical Therapy Evaluation Date: 11/27/2021 Referring Doctor: Enedelia Mora MD PT Orders: PT CONSULT: Limited ability Precautions: Standard Patient Profile/Admitting Diagnosis: 76 year old female with PMHx of NIDDM2, hypertension, hyperlipidemia, DENNIS not compliant with CPAP, obesity, who presented to [facility] ED for L breast redness, pain, persistent headache, dizziness, and nausea due to suspected lyme disease and suspected anaplasmosis, and dehydration. PMHX: All Active Problems?(Updated 11/27/21 @ 00:12 by Enedelia Mora MD) Dehydration (Acute) Non-insulin treated type 2 diabetes mellitus (Acute) Discharge planning issues (Acute) DVT prophylaxis (Acute) Pulmonary edema (Acute) Hypokalemia (Acute) Hyponatremia (Acute) Drug-induced photosensitivity (Acute) Lyme disease (Acute) Cellulitis of left breast (Acute) Atrophic vaginitis (Acute) Anxiety (Chronic) Medical History? anaphalaxis secondary to antibiotics 12/2013 Arthritis of left shoulder region Asthma Auditory hallucinations Benign hypertension Bile reflux gastritis Carpal tunnel syndrome Chronic pain Constipation by delayed colonic transit Depression Diabetes mellitus Esophagitis determined by endoscopy Fibromyalgia History of colon cancer (07/18/16) Hypercholesterolemia Mild cognitive impairment Obesity Osteoarthritis Overactive bladder Polyp of colon (10/05/12) Laparoscopic sigmoid hemicolectomy by Dr. Jose David Renteria 10/05/2012.Primary osteoarthritis of left knee (02/18/17) Rectocele Sleep apnea Spinal stenosis of lumbar region Vitamin D deficiency Surgical History? Colectomy 08/2012EGD - MAC (04/28/17) H/O removal of cyst Bartholin cyst excision 2019 - 4cm cystHernia Repair, Incisional History of colonoscopy (~07/2019) History of esophagogastroduodenoscopy (EGD) (~07/2019) History of total left knee replacement (TKR) 06/18/2017Hx of partial cystectomy Hx of shoulder surgery Alen Fundoplication Open Carpal Tunnel release R with trigger releaseRepair of umbilical hernia Replacement of total knee joint Right & LEFTvaricose vein stripping Family History? Other Diabetes Heart disease Hyperlipidemia Mental disorder Osteoporosis Personal history of malignant neoplasm Social History/Home Situation: Lives in a private home, with her Holden. Generally very active and independent, swims in a pond daily. Current Functional Limitations: None Equipment Owned/DME: None Subjective: Feeling much better. She continues to have some mild nausea and stomach upset, but remarkably improved compared to days before. Only has mild discomfort on her left breast about the region of a bull's-eye rash and cellulitis. Objective: General Observation: Found standing independently at sink, washing herself up, IV catching maneuvering IV pole well Mental Status: A &O x3 Pain: 0/10 Vital Signs: BP 131/76, HR 68, stable ROM: Right Upper Extremity: Grossly WNL Left Upper Extremity: Grossly WNL Right Lower Extremity: Grossly WNL Left Lower Extremity: Grossly WNL Strength: Grossly 5/5 throughout bilateral upper and lower extremities Sensation: WNL Bed Mobility/Transfers: Independent without bed mobility, transfers and ambulation Gait: WNL Balance: Static Sitting: Good Dynamic Sitting: Good Static Standing: Good Dynamic Standing: Good Special Tests: Mobility Limitations Standardized Measure [facility] 6 clicks Basic Mobility Inpatient Short Form: 0% disability Informed Consent/Education: Patient instructed in purpose of PT consult and plan of care. Assessment: Patient is a 76year old female limited ability due to consequences of Lyme disease infection and possible anaplasmosis, with flul estefanía symptoms resulting unsteadiness on feet, nausea and poor tolerance to mobility over the past few days. At the present time patient is demonstrating no impairment level problems or great functional limitations, aside from intolerance to basic mobility due to her nausea. She is safe to be independent, and cleared to ambulate hallways for maintenance of her physical condition while hospitalized. If she continues to struggle with return of energy level or endurance post d ischarge, outpatient physical therapy is recommended. Patient is assessed as a Low [id number] complexity based on the following: History: See comorbidities Examination: Unremarkable Presentation: Stable Decision Making: Easy Plan of Care/Treatment Plan: Discharge, and the patient patient remained with ambulation about hallways DISCHARGE RECOMMENDATIONS: Outpatient PT services she struggles with return of premorbid level strength, endurance, etc. TREATMENT CODE/TIME: [id number], 20 minutes direct and total Documented with [employer] voice recognition software.
[2021-11-27] MEDS: Potassium Chloride 20 MEQ TABCR PO ×2 (13:12→17:31)
[2021-11-27] MEDS: VANCOMYCIN/WATER (PEG) 1 GM/200 ML BAG IV ×2 (13:17→23:07)
--- NOTE | 2021-11-27 16:25 | PGE_ITS ---
Date of Service Date of service: 11/27/21 Time of Service: 16:25 Assessment and Plan Assessment and plan (1) Lyme disease: Status: Acute Assessment and plan: Continue IV doxycycline. Due to presence of pulmonary findings on the CXR, anaplasmosis a differential. Doxycycline should cover both. Await tick panel. (2) Cellulitis of left breast: Status: Acute Assessment and plan: Suspected component of secondary cellulitis on top of her Lyme disease rash. stop vancomycin and cefepime and monitor Await blood cultures. (3) Drug-induced photosensitivity: Status: Acute Assessment and plan: Patient has evidence of erythema in sun exposed areas, was started on doxycycline yesterday and noted that her symptoms got worse after swimming in a pond today (it was a kumar day). Suspected component of sun sensitivity. She should be educated on staying away from the sun while on doxycycline. (4) Hyponatremia: Status: Acute Assessment and plan: In setting of dehydration and a tick illness (anaplasmosis can result in electrolyte abnormalities). euvolemic, stop IV fluids Recheck labs in am. Hold HCTZ. (5) Hypokalemia: Status: Acute Assessment and plan: Replete, hypomagnesemia, replete also, follow both. (6) Pulmonary edema: Status: Acute Assessment and plan: asystomatic (7) Non-insulin treated type 2 diabetes mellitus: Status: Acute Assessment and plan: Continue metformin. Cover with SSI (8) Benign hypertension: Assessment and plan: Hold HCTZ in setting of dehydration. Continue toprol XL. (9) Dehydration: Status: Resolved Assessment and plan: IVF discontinued monitor (10) DVT prophylaxis: Status: Acute Assessment and plan: SC enoxaparin (11) Discharge planning issues: Status: Acute Assessment and plan: Full code discussed with Dr Bolanos. Subjective Subjective Patient reports: no new complaints, feels better, tolerating liquids well, voiding w/o difficulty and afebrile Exam Const General: cooperative, comfortable and no acute distress Nutritional Appearance: obese Orientation: alert, awake and oriented x3 HENMT Head: normal to inspection, normocephalic and atraumatic Mouth: oral mucosae normal Chest Chest: normal inspection of the chest Resp Effort & Inspection: normal respiratory effort Auscultation: clear to auscultation bilaterally Cardio Rate: regular rate Rhythm: regular rhythm Neuro General: patient alert, patient awake and patient oriented x3 Cognition: normal cognition Speech: speech normal Extrem General: normal to inspection and full ROM Objective Last Vital Signs Temp 36.8 C 11/27/21 15:58 Pulse 84 11/27/21 15:58 Resp 18 11/27/21 15:58 BP 148/78 H 11/27/21 15:58 Pulse Ox 96 11/27/21 15:58 Laboratory Results - last 24 hr 11/26/21 11/26/21 11/26/21 18:33 18:45 18:45 WBC RBC Hgb Hct MCV MCH MCHC RDW Plt Count MPV Immature Gran % Neutrophils % Lymphocytes % Monocytes % Eosinophils % Basophils % Nucleated RBC % Absolute Neutrophils Absolute Lymphocytes Absolute Monocytes Absolute Eosinophils Absolute Basophils VBG Lactate 1.0 Sodium 134 L Potassium 3.3 L Chloride 96 L Carbon Dioxide 31.0 Anion Gap 7.0 BUN 9 Creatinine 0.9 Estimated GFR/1.73 m2 >= 60.00 Glucose 145 H Calcium 8.6 Magnesium Total Bilirubin 0.9 AST 13 L ALT 18 Alkaline Phosphatase 75 Troponin I C-Reactive Protein NT-Pro-B Natriuret Pep Total Protein 6.9 Albumin 3.5 Lipase 15 Urine Color Urine Clarity Urine pH Ur Specific [place] Urine Protein Urine Ketones Urine Blood Urine Nitrite Urine Bilirubin Urine Urobilinogen Ur Leukocyte Esterase Urine RBC Urine WBC Ur Epithelial Cells Urine Crystals Urine Bacteria Urine Casts Urine Mucus Urine Other Ur Culture Indicated? Urine Glucose COVID-19 Source SARS-CoV-2 (PCR) Influenza Type A (PCR) Influenza Type B (PCR) RSV (PCR) Add-On Test Request 11/26/21 11/26/21 11/26/21 18:45 18:45 18:45 WBC 9.82 RBC 4.76 Hgb 13.5 Hct 40.0 MCV 84 MCH 28.4 MCHC 33.8 RDW 12.7 Plt Count 198 MPV 10.4 Immature Gran % 0.4 Neutrophils % 85.0 Lymphocytes % 5.5 Monocytes % 8.9 Eosinophils % 0.0 Basophils % 0.2 Nucleated RBC % 0.0 Absolute Neutrophils 8.35 H Absolute Lymphocytes 0.54 L Absolute Monocytes 0.87 H Absolute Eosinophils 0.00 Absolute Basophils 0.02 VBG Lactate Sodium Potassium Chloride Carbon Dioxide Anion Gap BUN Creatinine Estimated GFR/1.73 m2 Glucose Calcium Magnesium Total Bilirubin AST ALT Alkaline Phosphatase Troponin I C-Reactive Protein NT-Pro-B Natriuret Pep Total Protein Albumin Lipase Urine Color Urine Clarity Urine pH Ur Specific [place] Urine Protein Urine Ketones Urine Blood Urine Nitrite Urine Bilirubin Urine Urobilinogen Ur Leukocyte Esterase Urine RBC Urine WBC Ur Epithelial Cells Urine Crystals Urine Bacteria Urine Casts Urine Mucus Urine Other Ur Culture Indicated? Urine Glucose COVID-19 Source Not Applicable SARS-CoV-2 (PCR) Negative Influenza Type A (PCR) Negative Influenza Type B (PCR) Negative RSV (PCR) Negative Add-On Test Request DONE 11/26/21 11/26/21 11/27/21 18:45 19:27 06:05 WBC RBC Hgb Hct MCV MCH MCHC RDW Plt Count MPV Immature Gran % Neutrophils % Lymphocytes % Monocytes % Eosinophils % Basophils % Nucleated RBC % Absolute Neutrophils Absolute Lymphocytes Absolute Monocytes Absolute Eosinophils Absolute Basophils VBG Lactate Sodium 138 Potassium 3.3 L Chloride 103 Carbon Dioxide 28.6 Anion Gap 6.4 BUN 9 Creatinine 0.7 Estimated GFR/1.73 m2 >= 60.00 Glucose 137 H Calcium 8.4 L Magnesium 1.5 L Total Bilirubin AST ALT Alkaline Phosphatase Troponin I < 50 C-Reactive Protein 11.79 H NT-Pro-B Natriuret Pep 568 H Total Protein Albumin Lipase Urine Color Yellow Urine Clarity Clear Urine pH 8.0 Ur Specific [place] 1.020 Urine Protein 30 H Urine Ketones Trace H Urine Blood Trace-intact H Urine Nitrite Negative Urine Bilirubin Negative Urine Urobilinogen 0.2 Ur Leukocyte Esterase Negative Urine RBC 5-10 H Urine WBC Negative Ur Epithelial Cells Negative Urine Crystals Negative Urine Bacteria Negative Urine Casts Negative Urine Mucus Negative Urine Other Few Transitional Ur Culture Indicated? No Urine Glucose Negative COVID-19 Source SARS-CoV-2 (PCR) Influenza Type A (PCR) Influenza Type B (PCR) RSV (PCR) Add-On Test Request 11/27/21 06:05 WBC 7.08 RBC 4.30 Hgb 12.2 Hct 36.0 MCV 84 MCH 28.4 MCHC 33.9 RDW 13.0 Plt Count 157 MPV 10.8 Immature Gran % 0.4 Neutrophils % 75.6 Lymphocytes % 11.2 Monocytes % 12.4 Eosinophils % 0.0 Basophils % 0.4 Nucleated RBC % 0.0 Absolute Neutrophils 5.35 Absolute Lymphocytes 0.79 L Absolute Monocytes 0.88 H Absolute Eosinophils 0.00 Absolute Basophils 0.03 VBG Lactate Sodium Potassium Chloride Carbon Dioxide Anion Gap BUN Creatinine Estimated GFR/1.73 m2 Glucose Calcium Magnesium Total Bilirubin AST ALT Alkaline Phosphatase Troponin I C-Reactive Protein NT-Pro-B Natriuret Pep Total Protein Albumin Lipase Urine Color Urine Clarity Urine pH Ur Specific [place] Urine Protein Urine Ketones Urine Blood Urine Nitrite Urine Bilirubin Urine Urobilinogen Ur Leukocyte Esterase Urine RBC Urine WBC Ur Epithelial Cells Urine Crystals Urine Bacteria Urine Casts Urine Mucus Urine Other Ur Culture Indicated? Urine Glucose COVID-19 Source SARS-CoV-2 (PCR) Influenza Type A (PCR) Influenza Type B (PCR) RSV (PCR) Add-On Test Request PAWSS Have you Been Recently Intoxicated or Drunk Within the Last 30 days?: No Have you Ever Experienced Previous Episodes of Alcohol Withdrawal?: No Have you ever Experienced Withdrawal Seizures?: No Have you ever Experienced Delirium Tremens(DT)s?: No Have you ever undergone Alcohol Rehabilitation Treatment (i.e, inpt ot outpatient treatment programs)?: No Have you ever Experienced Blackouts?: No Have you ever Combined Alcohol with other Downers within the last 90 days?: No Have you ever Combined Alcohol with any other Substance of Abuse during the last 90 days?: No Positive Blood Alcohol level on Presentation? [PCS.BAL]: No Evidence of Increased Autonomic Activity (i.e. HR>120, tremor, sweating, agitation, nausea)?: No Result: 0
[2021-11-27] MEDS: Ondansetron 4 MG/2 ML VIAL IVP (19:46)
[2021-11-27] MEDS: Lovastatin 40 MG TAB PO (21:15)
[2021-11-27] MEDS: ARIPiprazole 5 MG TAB PO (21:15)
[2021-11-27] MEDS: traZODone 50 MG TAB PO (21:15)
[2021-11-27] MEDS: DULoxetine 30 MG CAP 60 MG PO (21:16)
--- NOTE | 2021-11-28 | DI.US_ITS ---
Exam(s) US BREAST LT LIMITED EXAM: US BREAST LT LIMITED CLINICAL HISTORY: abscess, left breast TECHNIQUE: Ultrasound left breast performed using standard protocol. The lower inner quadrant of th e left breast was evaluated sonographically. COMPARISON: No exams were available for comparison FINDINGS: No solid or cystic masses, hypoechoic foci, areas of abnormal shadowing, or areas of skin thickening. There is edema seen in the soft tissues. No focal fluid collection is seen to suggest an abscess. IMPRESSION: 1. No evidence of an abscess. 2. Soft tissue edema is present. DATA REPOSITORY:
[2021-11-28 03:25] VITALS: BP 115/71; PULSE 80; RESP 18; TEMP 36.2; O2SAT 93
[2021-11-28 07:33] VITALS: BP 145/70; PULSE 73; RESP 19; TEMP 37.3; O2SAT 94
[2021-11-28 07:45] LABS: Anion Gap 4.1 mmol/L (3-11); BUN 11 mg/dL (7-18); CO2 29.9 mmol/L (21.0-32.0); CREATININE 0.8 mg/dL (0.55-1.02); Calcium 8.5 mg/dL (8.5-10.1); Chloride 105 mmol/L (98-107); Glucose 115 mg/dL (74-106); Sodium 139 mmol/L (136-145)
[2021-11-28 07:52] LABS: C-Reactive Protein 9.94 mg/dL (0.0-0.3)
[2021-11-28] MEDS: Enoxaparin 40 MG/0.4 ML SYR SC (09:06)
[2021-11-28] MEDS: Pregabalin 50 MG CAP 150 MG PO ×2 (09:07→19:25)
[2021-11-28] MEDS: metFORMIN 500 MG TAB PO (09:08)
[2021-11-28] MEDS: Cholecalciferol (Vitamin D3) 1,000 UNIT TAB 1000 UNITS PO (09:08)
[2021-11-28] MEDS: Metoprolol CR 25 MG TABCR 12.5 MG PO ×2 (09:08→19:25)
[2021-11-28] MEDS: Sucralfate 1 GM TAB PO ×2 (09:08→19:25)
[2021-11-28] MEDS: Oxybutynin 5 MG TAB PO ×3 (09:08→19:25)
[2021-11-28] MEDS: Pantoprazole 40 MG TABCR PO (09:09)
[2021-11-28] MEDS: FLUoxetine 20 MG CAP PO (09:09)
[2021-11-28] MEDS: Fluticasone NASAL SPRAY 16 GM BTL NS (09:12)
[2021-11-28] MEDS: Potassium Chloride 20 MEQ TABCR PO ×3 (09:13→16:58)
[2021-11-28] MEDS: Normal Saline Flush 10 ML SYR IVP ×4 (09:16→21:51)
[2021-11-28] MEDS: DOXYCYCLINE 100 MG in Normal Saline 100 ML IVPB ×2 (10:10→21:50)
[2021-11-28 10:33] LABS: Lyme Ab w Rflx to Lyme Confirm Negative (Negative)
[2021-11-28 11:22] VITALS: BP 134/65; PULSE 77; RESP 18; TEMP 37.1; O2SAT 97
[2021-11-28] MEDS: Insulin Aspart 300 UNITS/3 ML PEN SC (11:47)
[2021-11-28] MEDS: VANCOMYCIN/WATER (PEG) 1 GM/200 ML BAG IV ×2 (12:49→23:43)
--- NOTE | 2021-11-28 13:46 | W.PM.PROGNOT ---
Date of Service Date of service: 11/28/21 Time of Service: 13:46 Assessment and Plan Assessment and plan (1) Cellulitis of left breast: Status: Acute Assessment and plan: showing slow improvement on day 3 of vanco/cefepime/doxycycline ultrasound shows no mass or drainable abscess awaiting blood culture results, has been negative to date inflammatory markers improving, continue to trend (2) Non-insulin treated type 2 diabetes mellitus: Status: Acute Assessment and plan: Continue metformin. Cover with SSI carb controlled diet blood sugars have been controlled in the 126-141 (3) Hypokalemia: Status: Acute Assessment and plan: normalized after repleted (4) DVT prophylaxis: Status: Acute Assessment and plan: enoxaparin daily (5) Discharge planning issues: Status: Acute Assessment and plan: anticipate discharge to home with no services discussed with DR Bolanos. Subjective Subjective Patient reports: no new complaints, feels better, tolerating liquids well, tolerating a regular diet and afebrile Interval history since last seen: erythema and pain improving Exam Const General: cooperative, comfortable and no acute distress Nutritional Appearance: overweight Orientation: alert, awake and oriented x3 HENMT Head: normal to inspection, normocephalic and atraumatic Mouth: oral mucosae normal Chest Chest: normal inspection of the chest Resp Effort & Inspection: normal respiratory effort Auscultation: clear to auscultation bilaterally Cardio Rate: regular rate Rhythm: regular rhythm GI Inspection: normal to inspection Palpation: soft Skin Rashes: rashes noted (left breast, less erythema than yesterday) Neuro General: patient alert, patient awake, patient oriented x3 and no focal motor deficits Cognition: normal cognition Extrem General: normal to inspection and full ROM Objective Last Vital Signs Temp 37.1 C 11/28/21 11:22 Pulse 77 11/28/21 11:22 Resp 18 11/28/21 11:22 BP 134/65 11/28/21 11:22 Pulse Ox 97 11/28/21 11:22 Laboratory Results - last 24 hr 11/26/21 11/28/21 11/28/21 18:45 06:30 06:30 Sodium 139 Potassium 4.0 Chloride 105 Carbon Dioxide 29.9 Anion Gap 4.1 BUN 11 Creatinine 0.8 Estimated GFR/1.73 m2 >= 60.00 Glucose 115 H Calcium 8.5 Magnesium 2.0 C-Reactive Protein 9.94 H Lyme Disease Antibody Negative PAWSS Have you Been Recently Intoxicated or Drunk Within the Last 30 days?: No Have you Ever Experienced Previous Episodes of Alcohol Withdrawal?: No Have you ever Experienced Withdrawal Seizures?: No Have you ever Experienced Delirium Tremens(DT)s?: No Have you ever undergone Alcohol Rehabilitation Treatment (i.e, inpt ot outpatient treatment programs)?: No Have you ever Experienced Blackouts?: No Have you ever Combined Alcohol with other Downers within the last 90 days?: No Have you ever Combined Alcohol with any other Substance of Abuse during the last 90 days?: No Positive Blood Alcohol level on Presentation? [PCS.BAL]: No Evidence of Increased Autonomic Activity (i.e. HR>120, tremor, sweating, agitation, nausea)?: No Result: 0
--- NOTE | 2021-11-28 14:33 | CHAPLAIN ---
I had a long visit with Neema. She is feeling better today and waiting for the results of her ultrasound. She and her family were members of the [employer], which eventually closed. She does not attend a nondenominational currently, but her liseth is very important to her. She said her may be into visit later today.
[2021-11-28] MEDS: CEFEPIME 2 GM in Normal Saline 100 ML IVPB ×2 (14:50→22:42)
[2021-11-28 15:49] VITALS: BP 117/64; PULSE 72; RESP 18; TEMP 37.2; O2SAT 96
[2021-11-28] MEDS: Acetaminophen 325 MG TAB PO (16:03)
--- NOTE | 2021-11-28 16:23 | CMPROGNOTE_ITS ---
- If Service Date Differs Date of service: 11/28/21 Time of Service: 16:23 Care Management Progress Note S/O:Neema was sitting up in a chair when CM met with her. She was visiting with Kylah, our machine adjuster leader case trim and appeared to be in good spirits. Neema stated that overall she is feeling much better but that her breast is still quite painful where she has the rash and cellulitis. Neema will remain hospitalized for another 24-48 hours for continued IV antibiotics. A: Neema is a 76 year old woman admitted on 11/26/21 with Lyme Disease and cellulitis P:Neema will be discharged home with no new services. She will follow up with her PCP and plan of care and transport with family. CM will continue to support Neema and assess for discharge planning concerns.
[2021-11-28 19:23] VITALS: BP 153/79; PULSE 73; RESP 18; TEMP 36.6; O2SAT 95
[2021-11-28] MEDS: clonazePAM 0.5 MG TAB PO (19:24)
[2021-11-28] MEDS: traZODone 50 MG TAB PO (21:50)
[2021-11-28] MEDS: DULoxetine 30 MG CAP 60 MG PO (21:50)
[2021-11-28] MEDS: Docusate Sodium 100 MG CAP PO (21:50)
[2021-11-28] MEDS: Lovastatin 40 MG TAB PO (21:50)
[2021-11-28] MEDS: ARIPiprazole 5 MG TAB PO (21:50)
[2021-11-28 22:56] VITALS: BP 136/78; PULSE 94; RESP 18; TEMP 36.7; O2SAT 94
[2021-11-28 23:26] LABS: Vancomycin, Trough 12.5 ug/mL (10.0-20.0)
[2021-11-29 03:16] VITALS: BP 155/75; PULSE 73; RESP 18; TEMP 36.7; O2SAT 96
[2021-11-29 05:00] VITALS: RESP 18
[2021-11-29 06:59] LABS: Abs Immature Grans 0.03 10^3/uL (0.0-0.06); Absolute Basophil Count 0.04 10^3/uL (0.0-0.2); Absolute Eosinophil Count 0.22 10^3/uL (0.0-0.7); Absolute Lymphocyte Count 1.05 10^3/uL (1.2-3.4); Absolute Monocyte Count 0.56 10^3/uL (0.1-0.8); Absolute Neutrophil Count 2.08 10^3/uL (1.2-6.7); Eosinophils % 5.5; HGB 11.6 g/dL (11.2-15.7); Immature Grans % 0.8; Lymphocytes % 26.4; MCH 27.7 pg (27.0-33.0); MCHC 32.2 % (32.0-36.0); MCV 86 fL (80-95); MPV 10.4 fL (8.0-11.0); Monocytes % 14.1; Neutrophils % 52.2; Platelet Count 192 10^3/uL (130-400); RBC 4.19 10^6/uL (3.93-5.22); RDW 13.1 % (11.7-14.6); RDW-SD 40.6 fL; WBC 3.98 10^3/uL (4.4-10.8)
[2021-11-29] MEDS: Cholecalciferol (Vitamin D3) 1,000 UNIT TAB 1000 UNITS PO (07:19)
[2021-11-29] MEDS: Enoxaparin 40 MG/0.4 ML SYR SC (07:19)
[2021-11-29] MEDS: Sucralfate 1 GM TAB PO ×2 (07:19→21:14)
[2021-11-29] MEDS: Pregabalin 50 MG CAP 150 MG PO ×2 (07:19→21:16)
[2021-11-29] MEDS: Metoprolol CR 25 MG TABCR 12.5 MG PO ×2 (07:20→21:16)
[2021-11-29] MEDS: Oxybutynin 5 MG TAB PO ×3 (07:20→21:17)
[2021-11-29] MEDS: FLUoxetine 20 MG CAP PO (07:20)
[2021-11-29] MEDS: Pantoprazole 40 MG TABCR PO (07:20)
[2021-11-29] MEDS: metFORMIN 500 MG TAB PO (07:20)
[2021-11-29] MEDS: Fluticasone NASAL SPRAY 16 GM BTL NS (07:21)
[2021-11-29] MEDS: Normal Saline Flush 10 ML SYR IVP (07:21)
[2021-11-29 07:23] LABS: Anion Gap 5.5 mmol/L (3-11); BUN 13 mg/dL (7-18); C-Reactive Protein 5.19 mg/dL (0.0-0.3); CO2 28.5 mmol/L (21.0-32.0); CREATININE 0.8 mg/dL (0.55-1.02); Calcium 8.9 mg/dL (8.5-10.1); Chloride 105 mmol/L (98-107); Glucose 125 mg/dL (74-106); Potassium 4.3 mmol/L (3.5-5.1); Sodium 139 mmol/L (136-145)
[2021-11-29 07:48] VITALS: BP 163/90; PULSE 64; RESP 18; TEMP 36.6; O2SAT 95
[2021-11-29] MEDS: Docusate Sodium 100 MG CAP PO ×2 (09:57→21:25)
[2021-11-29] MEDS: DOXYCYCLINE 100 MG in Normal Saline 100 ML IVPB (09:57)
[2021-11-29] MEDS: VANCOMYCIN/WATER (PEG) 1 GM/200 ML BAG IV (11:07)
[2021-11-29 11:28] VITALS: BP 152/79; PULSE 60; RESP 19; TEMP 36.6; O2SAT 96
--- NOTE | 2021-11-29 12:50 | PDOC.CMPRO ---
- If Service Date Differs Date of service: 11/29/21 Time of Service: 12:50 Care Management Progress Note S/O:Neema was sitting up in a chair when CM met with her. She was smiling and appeared to be in good spirits. Neema stated that every day she feels better. Per provider, there is some indication that her rash and cellulitis may actually be the result of a spider bite as opposed to a tick bite. Neema stated that she is allergic to spider bites so believes that this is a possibility. Neema went on to talk about her best friend of many many years and the fact that she (Neema) is going to be maid of honor in her wedding in December, She admitted that she is very happy for her friend and is looking forward to the occasion. Neema informed CM that she anticipates being discharged home tomorrow. A: Neema is a 76 year old woman admitted on 11/26/21 with Lyme Disease and cellulitis P:Neema will be discharged home with no new services. She will follow up with her PCP and plan of care and transport with family. CM will continue to support Neema and assess for discharge planning concerns.
[2021-11-29 15:20] VITALS: BP 148/83; PULSE 76; RESP 20; TEMP 35.7; O2SAT 98
--- NOTE | 2021-11-29 16:28 | CHAPLAIN ---
I had a short visit with Neema and left her a prayer shawl that she really appreciated.
--- NOTE | 2021-11-29 17:52 | PGE_ITS ---
Date of Service Date of service: 11/29/21 Time of Service: 17:52 Assessment and Plan Assessment and plan (1) Cellulitis of left breast: Status: Acute Assessment and plan: showing slow improvement on day 4 of vanco/cefepime/doxycycline ultrasound shows no mass or drainable abscess blood culture with no growth, awaiting final report inflammatory markers improving, continue to trend area marked today as we will downstep to oral doxycycline only, vanco and cefepime discontinued. if she continue improving, can likely discharge home tomorrow (2) Non-insulin treated type 2 diabetes mellitus: Status: Acute Assessment and plan: Continue metformin. Cover with SSI carb controlled diet blood sugars have been well controlled in the 105-128 (3) Hypokalemia: Status: Acute Assessment and plan: normalized after repleted (4) DVT prophylaxis: Status: Acute Assessment and plan: enoxaparin daily (5) Discharge planning issues: Status: Acute Assessment and plan: anticipate discharge to home with no services tomorrow on oral doxycycline if continues improving. discussed with DR Bolanos. Subjective Subjective Patient reports: no new complaints, feels better, pain is less, tolerating liquids well, tolerating a regular diet, voiding w/o difficulty and afebrile Exam Const General: cooperative, comfortable and no acute distress Nutritional Appearance: overweight Orientation: alert, awake and oriented x3 HENMT Head: normal to inspection, normocephalic and atraumatic Mouth: oral mucosae normal Chest Chest: normal inspection of the chest Resp Effort & Inspection: normal respiratory effort Auscultation: clear to auscultation bilaterally Cardio Rate: regular rate Rhythm: regular rhythm GI Inspection: normal to inspection Palpation: soft Skin Rashes: rashes noted (left breast, continues to recede and erythema improving, marked today) Wounds: no wounds Neuro General: patient alert, patient awake, patient oriented x3 and no focal motor deficits Cognition: normal cognition Extrem General: normal to inspection and full ROM Objective Last Vital Signs Temp 35.7 C L 11/29/21 15:20 Pulse 76 11/29/21 15:20 Resp 20 11/29/21 15:20 BP 148/83 H 11/29/21 15:20 Pulse Ox 98 11/29/21 15:20 Laboratory Results - last 24 hr 11/28/21 11/29/21 11/29/21 23:05 06:35 06:35 WBC 3.98 L RBC 4.19 Hgb 11.6 Hct 36.0 MCV 86 MCH 27.7 MCHC 32.2 D RDW 13.1 Plt Count 192 MPV 10.4 Immature Gran % 0.8 Neutrophils % 52.2 Lymphocytes % 26.4 Monocytes % 14.1 Eosinophils % 5.5 Basophils % 1.0 Nucleated RBC % 0.0 Absolute Neutrophils 2.08 Absolute Lymphocytes 1.05 L Absolute Monocytes 0.56 Absolute Eosinophils 0.22 Absolute Basophils 0.04 Sodium 139 Potassium 4.3 Chloride 105 Carbon Dioxide 28.5 Anion Gap 5.5 BUN 13 Creatinine 0.8 Estimated GFR/1.73 m2 >= 60.00 Glucose 125 H Calcium 8.9 C-Reactive Protein 5.19 H Vancomycin Trough 12.5 PAWSS Have you Been Recently Intoxicated or Drunk Within the Last 30 days?: No Have you Ever Experienced Previous Episodes of Alcohol Withdrawal?: No Have you ever Experienced Withdrawal Seizures?: No Have you ever Experienced Delirium Tremens(DT)s?: No Have you ever undergone Alcohol Rehabilitation Treatment (i.e, inpt ot outpatie nt treatment programs)?: No Have you ever Experienced Blackouts?: No Have you ever Combined Alcohol with other Downers within the last 90 days?: No Have you ever Combined Alcohol with any other Substance of Abuse during the last 90 days?: No Positive Blood Alcohol level on Presentation? [PCS.BAL]: No Evidence of Increased Autonomic Activity (i.e. HR>120, tremor, sweating, agitation, nausea)?: No Result: 0
[2021-11-29 19:45] VITALS: BP 163/89; PULSE 73; RESP 19; TEMP 37; O2SAT 97
[2021-11-29] MEDS: DULoxetine 30 MG CAP 60 MG PO (21:14)
[2021-11-29] MEDS: ARIPiprazole 5 MG TAB PO (21:14)
[2021-11-29] MEDS: Lovastatin 40 MG TAB PO (21:15)
[2021-11-29] MEDS: traZODone 50 MG TAB PO (21:15)
[2021-11-29] MEDS: Doxycycline Hyclate 100 MG CAP PO (21:15)
[2021-11-29] MEDS: Acetaminophen 325 MG TAB PO (21:25)
[2021-11-29] MEDS: clonazePAM 0.5 MG TAB PO (21:26)
[2021-11-29 22:19] LABS: Anaplasma phagocytophilum Negative (Negative); B. miyamotoi PCR Negative (Negative); Babesia divergens/MO-1 Negative (Negative); Babesia duncani Negative (Negative); Babesia microti Negative (Negative); Ehrlichia chaffeensis Negative (Negative); Ehrlichia ewingii/canis Negative (Negative); Ehrlichia muris eauclairensis Negative (Negative)
[2021-11-30 00:10] VITALS: BP 137/90; PULSE 69; RESP 16; TEMP 36.6; O2SAT 96
[2021-11-30 04:32] VITALS: BP 164/89; PULSE 66; RESP 16; TEMP 36.7; O2SAT 94
[2021-11-30 06:15] LABS: Abs Immature Grans 0.02 10^3/uL (0.0-0.06); Absolute Basophil Count 0.05 10^3/uL (0.0-0.2); Absolute Eosinophil Count 0.32 10^3/uL (0.0-0.7); Absolute Lymphocyte Count 1.42 10^3/uL (1.2-3.4); Absolute Monocyte Count 0.48 10^3/uL (0.1-0.8); Absolute Neutrophil Count 1.82 10^3/uL (1.2-6.7); Basophils % 1.2; Eosinophils % 7.8; HCT 39.7 % (36.0-46.0); HGB 13.1 g/dL (11.2-15.7); Immature Grans % 0.5; Lymphocytes % 34.5; MCH 27.7 pg (27.0-33.0); MCV 84 fL (80-95); MPV 10.5 fL (8.0-11.0); Monocytes % 11.7; Neutrophils % 44.3; Platelet Count 200 10^3/uL (130-400); RBC 4.73 10^6/uL (3.93-5.22); RDW 12.8 % (11.7-14.6); RDW-SD 39.4 fL; WBC 4.11 10^3/uL (4.4-10.8)
[2021-11-30 06:28] LABS: Anion Gap 6.2 mmol/L (3-11); BUN 13 mg/dL (7-18); C-Reactive Protein 2.82 mg/dL (0.0-0.3); CO2 29.8 mmol/L (21.0-32.0); CREATININE 0.7 mg/dL (0.55-1.02); Calcium 9.4 mg/dL (8.5-10.1); Chloride 103 mmol/L (98-107); Glucose 111 mg/dL (74-106); Potassium 3.9 mmol/L (3.5-5.1); Sodium 139 mmol/L (136-145)
[2021-11-30 07:23] VITALS: BP 137/80; PULSE 65; RESP 16; TEMP 36.3; O2SAT 95
[2021-11-30] MEDS: metFORMIN 500 MG TAB PO (08:38)
[2021-11-30] MEDS: Doxycycline Hyclate 100 MG CAP PO (08:38)
[2021-11-30] MEDS: Sucralfate 1 GM TAB PO (08:38)
[2021-11-30] MEDS: Metoprolol CR 25 MG TABCR 12.5 MG PO (08:38)
[2021-11-30] MEDS: Pantoprazole 40 MG TABCR PO (08:38)
[2021-11-30] MEDS: Pregabalin 50 MG CAP 150 MG PO (08:38)
[2021-11-30] MEDS: FLUoxetine 20 MG CAP PO (08:39)
[2021-11-30] MEDS: Enoxaparin 40 MG/0.4 ML SYR SC (08:39)
[2021-11-30] MEDS: Fluticasone NASAL SPRAY 16 GM BTL NS (08:39)
[2021-11-30] MEDS: Oxybutynin 5 MG TAB PO ×2 (08:39→13:12)
[2021-11-30] MEDS: Cholecalciferol (Vitamin D3) 1,000 UNIT TAB 1000 UNITS PO (08:39)
[2021-11-30 11:19] VITALS: BP 146/79; PULSE 71; RESP 16; TEMP 36.2; O2SAT 97
--- NOTE | 2021-11-30 11:47 | DSE_ITS ---
Date of service: 11/30/21 Time of Service: 11:53 DS: Diagnosis Discharge Diagnosis (1) Cellulitis of left breast: Status: Acute (2) Non-insulin treated type 2 diabetes mellitus: Status: Acute (3) Hypokalemia: (4) DVT prophylaxis: Status: Deleted (5) Discharge planning issues: Status: Acute Discharge Plan Disposition Patient Disposition: HOME Condition: Stable Discharge Details Reason For Visit: Lyme Disease,Secondary Breast Cellulitis Admit Date/Time: 11/26/21 22:00 Admit Provider: Enedelia Mora Attending Provider: Enedelia Mora Primary Care Provider: Geoff Leiva Hospital Course Hospital Course: Neema is a 76 year old female with a past medical history of diabetes and obesity that presented to the [facility] emergency department 11/25/21 with the complaint of a lesion on her left breast for 1-2 days. She denies any known ticks. She states she was dragging her kayak through tall grass and thinks an insect of unknown type bit her. An ultrasound showed no abscess. The area was marked. She was given oral antibiotics - doxycycline - and discharged to home. She returned the next day with worsening pain and the lesion getting larger. She was admitted to the hospitalist service on the med surge floor with the diagnosis of cellulitis and given vancomycin, cefepime and doxycycline. The lesion began to become smaller, the pain was decreased. BC were negative. Lyme and tick borne illness panel is negative, her CRP came down and she began to feel better. With her vital signs being stable and the pain dissipating, she is discharged to home with family with Rx for augmentin - 5 day course. Advised to see PCP, urgent care or ED if increased pain, it gets bigger, fever, or body aches. Discussed with Dr Bolanos - Time spent with discharge and patient care 60 min Home Meds and New Rx's Prescriptions: New pantoprazole 40 mg Tablet,Delayed Release (Dr/Ec) 40 mg PO DAILY@0730 Qty: 14 0RF amoxicillin-pot clavulanate 875-125 mg tablet 1 tab PO BID Qty: 10 0RF fluconazole [Diflucan] 200 mg tablet See Rx Instructions .ROUTE .COMPLEX Qty: 2 0RF Rx Instructions: 200 mg orally one tablet today and one tablet in 5 days Continued fluticasone propionate 50 mcg/actuation spray,suspension 1 spray intranasal DAILY Rx Instructions: administer into each nostril lubiprostone [Amitiza] 8 mcg capsule 8 mcg PO DAILY aripiprazole 5 mg tablet 5 mg PO QHS metformin 500 mg tablet 500 mg PO DAILY sucralfate [Carafate] 1 gram tablet 1 g PO BID Label Comments: with meals pantoprazole [Protonix] 40 mg tablet,delayed release (DR/EC) 40 mg PO DAILY Qty: 30 12RF metoprolol succinate 50 MG tablet extended release 24 hr 12.5 mg PO BID Label Comments: 06/11/17 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 and takes half of that daily.DCW clonazepam 0.5 mg tablet 0.5 mg PO BID PRN Label Comments: Take 1 tablet by mouth once a day as directed for panic attacks duloxetine [Cymbalta] 30 mg capsule,delayed release(DR/EC) 60 mg PO QHS trazodone 50 mg tablet 50 mg PO QHS Label Comments: 1/ tp 1 tab po HS lovastatin 40 MG tablet 40 mg PO HS hydrochlorothiazide 25 MG tablet 25 mg PO DAILY AM oxybutynin chloride 5 MG tablet 5 mg PO TID epinephrine 0.3 MG/SYR auto-injector 0.3 mg IJ PRN PRN albuterol sulfate [ProAir HFA] 8.5 GM HFA aerosol inhaler 2 puff Inhalation Q4H PRN PRNQty: 1 0RF Rx Instructions: TO GET PEAK FLOW UP TOWARDS 400 pregabalin [Lyrica] 50 MG capsule 150 mg PO BID cholecalciferol (vitamin D3) [Vitamin D3] 25 mcg (1,000 unit) Tablet 25 mcg PO DAILY fluoxetine 40 mg capsule 20 mg PO DAILY tramadol 50 mg tablet 100 mg PO Q8H PRN PRN Label Comments: 2 tabs BID PRN and one at midday Discontinued doxycycline hyclate 100 mg tablet 100 mg PO BID Qty: 20 0RF Discharge Instructions Instructions: Amoxicillin/Clavulanate Potassium (By mouth), Probiotic (By mouth), Cellulitis (DC) Additional Instructions: Take probiotics while taking the antibiotics; see PCP, go to urgent care or return to [facility] Emergency Dept if fever or worsening lesion. Stand Alone Forms: Nursing Discharge Form Referrals: Geoff Leiva NP [Primary Care Provider] - (Follow up with PCP 1-2 weeks) Activity:: Activity as Tolerated Equipment/Supplies:: No Equipment Needed Diet:: As Tolerated Discharge Orders Discharge Orders: Discharge Order (Routine); Ordered 11/30/21 Ordered By: Neema Turner Discharge Data Discharge Date/Time-TO BE ENTERED AT DEPARTURE: 11/30/21 14:49 DS: Summary Time Spent with Patient providing and/or coordinating discharge services: Greater than 30 minutes Status at Discharge Functional status at discharge: independent ambulation Overall status at discharge: patient is progressing back to baseline Mental Status: mental status grossly normal Speech and Movement: speech and movement normal Mood: congruent mood Affect: normal affect Exam Const General: cooperative, comfortable and no acute distress Nutritional Appearance: overweight Orientation: alert, awake and oriented x3 HENMT Head: normal to inspection, normocephalic and atraumatic Mouth: oral mucosae normal Chest Chest: normal inspection of the chest Resp Effort & Inspection: normal respiratory effort Auscultation: clear to auscultation bilaterally Cardio Rate: regular rate Rhythm: regular rhythm GI Inspection: normal to inspection Palpation: soft Skin Rashes: rashes noted (left breast, continues to recede and erythema improving, decreased ~ 3 cm) Wounds: no wounds Neuro General: patient alert, patient awake, patient oriented x3 and no focal motor deficits Cognition: normal cognition Extrem General: normal to inspection and full ROM Psych Appearance: grossly normal Mental Status: mental status grossly normal Speech and Movement: speech and movement normal Mood: congruent mood Affect: normal affect Attitude: cooperative Thought Process: normal Thought Content: normal Insight: insight good Judgment: judgment good DS: Data Vitals/I&O Vitals and I&O: Vital Signs Temperature 36.2 C L 11/30/21 11:19 Temperature Source Tympanic 11/30/21 11:19 Pulse 71 11/30/21 11:19 Pulse Rhythm Regular 11/30/21 10:00 Respiratory Rate 16 11/30/21 11:19 Respiratory Effort Non-Labored 11/30/21 10:00 Respiratory Depth Normal 11/30/21 10:00 Respiratory Pattern Normal 11/30/21 10:00 Blood Pressure 146/79 H 11/30/21 11:19 Blood Pressure Mean 93 11/26/21 21:16 Blood Pressure Position Supine 11/26/21 18:02 Pulse Oximetry 97 11/30/21 11:19 Oxygen Delivery Method Room Air 11/30/21 11:19 Oxygen Flow Rate 0 11/30/21 11:19 Pain Level 0 11/30/21 11:19 Comment 11/29/21 19:45 Intake & Output 11/29/21 11/29/21 11/30/21 11:59 23:59 11:59 Intake Total 546.667 / 1266.667 720 / 1266.667 Balance 546.667 / 1266.667 720 / 1266.667 Weight 96.1 kg Intake: IV 306.667 / 306.667 Oral 240 / 960 720 / 960 Other: Urine Appearance Clear Clear Clear Comment pT goes to the bathroom independently. pT stated that she has voided alot through out the day. voids independently Stool Size Large Stool Characteristics Formed Voiding Methods Toilet Toilet Toilet Data Completed and Pending Labs on day of discharge: Labs from last 24 hours 11/30/21 11/30/21 11/26/21 05:44 05:44 18:45 WBC 4.11 L RBC 4.73 Hgb 13.1 Hct 39.7 MCV 84 MCH 27.7 MCHC 33.0 D RDW 12.8 Plt Count 200 MPV 10.5 Immature Gran % 0.5 Neutrophils % 44.3 Lymphocytes % 34.5 Monocytes % 11.7 Eosinophils % 7.8 Basophils % 1.2 Nucleated RBC % 0.0 Absolute Neutrophils 1.82 Absolute Lymphocytes 1.42 Absolute Monocytes 0.48 Absolute Eosinophils 0.32 Absolute Basophils 0.05 Sodium 139 Potassium 3.9 Chloride 103 Carbon Dioxide 29.8 Anion Gap 6.2 BUN 13 Creatinine 0.7 Estimated GFR/1.73 m2 >= 60.00 Glucose 111 H Calcium 9.4 C-Reactive Protein 2.82 H A.phagocytophil DNA PCR Negative B. divergens/MO-1 PCR Negative Babesia duncani (PCR) Negative Babesia microti DNA PCR Negative Borrelia (PCR) Negative E.chaffeensis DNA (PCR) Negative E.ewingii/canis DNA PCR Negative E. muris-like DNA (PCR) Negative Preliminary micro results at discharge 11/26/21 20:10 Blood Culture - Preliminary Blood NO GROWTH 72 HOURS 11/26/21 18:45 Blood Culture - Preliminary Blood NO GROWTH 72 HOURS PFSH All Active Problems (Updated 12/01/21 @ 00:01 by ANIRUDH BARRERA) Non-insulin treated type 2 diabetes mellitus (Acute) Discharge planning issues (Acute) Cellulitis of left breast (Acute) Atrophic vaginitis (Acute) Anxiety (Chronic) Medical History anaphalaxis secondary to antibiotics 12/2013 Arthritis of left shoulder region Asthma Auditory hallucinations Benign hypertension Bile reflux gastritis Carpal tunnel syndrome Chronic pain Constipation by delayed colonic transit Depression Diabetes mellitus Esophagitis determined by endoscopy Fibromyalgia History of colon cancer (07/18/16) Hypercholesterolemia Mild cognitive impairment Obesity Osteoarthritis Overactive bladder Polyp of colon (10/05/12) Laparoscopic sigmoid hemicolectomy by Dr. Jose David Renteria 10/05/2012. 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 Hx of partial cystectomy Hx of shoulder surgery Alen Fundoplication Open Carpal Tunnel release R with trigger release Repair of umbilical hernia Replacement of total knee joint Right & LEFT varicose vein stripping Family History Other Diabetes Heart disease Hyperlipidemia Mental disorder Osteoporosis Personal history of malignant neoplasm Social History Smoking/Tobacco Use Status: Former Tobacco Use Quit Date: 06/01/79 Smoking risk assessment performed?: Yes Alcohol Intake: current Alcohol Intake frequency: a few times a month Alcohol type: beer Drug use: Rarely Substance use type: marijuana Details: Pt states she used to use medical marijuana but has not for about 6 months. 09/12/21- pt rpeorts using marijuana at night only current occupation: Retired Current gender identity: female Darcy/Gnosticist: Pentacostal Special darcy needs: No Do you feel safe at home: Yes Do you feel safe in your relationship?: Yes Female Reproductive History Menstrual Age of Menarche: 15 Duration of menses: 6-7 days control method: none Menopause type: natural Date of menopause: 06/01/05 History History 2 Para 2 Hx # Term Pregnancies Multiple births Hx # Pregnancies Ectopic pregnancies AB induced Hx Number of Living Children AB spontaneous Past Pregnancies Del. Date GA/Weeks # Preg Succ Route Wgt Sex Labor Lgth Anesth esia Location Prov Complic 07/02/69 40 No vaginal 3175.147 g Male 04/29/72 40 No vaginal 2948.35 g Male Delivery Date: 07/02/69 Last Updated by: Nellie Rubio episiotoleonie
--- NOTE | 2021-11-30 14:37 | PDOC.CMDIS ---
- If Service Date Differs Date of service: 11/30/21 Time of Service: 14:37 LACE Index Scoring Tool - Questions: Length of Stay (in days): 4 - 6 Acuity (Admit via E.D.?): Yes Comorbidities: Diabetes w/o Complication, Any Tumor E.D. Visits: 2 - Answers: Total Score: 12 Risk of Readmission: High Risk Care Management Discharge Reason for Hospitalization: Lyme Disease Discharge Plan: Neema will be discharged home with no new services. She will follow up with her PCP and plan of care and transport with family. Patient/Family Education Needs: Review of discharge instructions, follow up plan, limitations, activity. medications, Ask Me Three.
== END 2021-11-30 14:49 | disposition home or self-care (01) | DRG 600 ==
LOC: ER 22:14 → MS 22:58
PROVIDERS: Nurse Practitioner Acute Care; Admitting Provider Internal Medicine; Emergency Provider Physician Assistant; PCP Nurse Practitioner Family; Visit Provider Internal Medicine
DX: N61.0 Mastitis without abscess (principal); Z68.41 Body mass index [BMI] 40.0-44.9, adult; E87.1 Hypo-osmolality and hyponatremia; M19.012 Primary osteoarthritis, left shoulder; J45.909 Unspecified asthma, uncomplicated; I10 Essential (primary) hypertension; K29.60 Other gastritis without bleeding; G89.29 Other chronic pain; K59.01 Slow transit constipation; F32.A Depression, unspecified; E11.9 Type 2 diabetes mellitus without complications; K20.90 Esophagitis, unspecified without bleeding; E78.00 Pure hypercholesterolemia, unspecified; G31.84 Mild cognitive impairment of uncertain or unknown etiology; Z85.038 Personal history of other malignant neoplasm of large intestine; E66.9 Obesity, unspecified; N32.81 Overactive bladder; G47.30 Sleep apnea, unspecified; E55.9 Vitamin D deficiency, unspecified; M48.061 Spinal stenosis, lumbar region without neurogenic claudication; Z90.49 Acquired absence of other specified parts of digestive tract; Z96.653 Presence of artificial knee joint, bilateral; L56.8 Other specified acute skin changes due to ultraviolet radiation; T36.4X5A Adverse effect of tetracyclines, initial encounter; E87.6 Hypokalemia; Z79.84 Long term (current) use of oral hypoglycemic drugs; E86.0 Dehydration; E78.5 Hyperlipidemia, unspecified; G47.33 Obstructive sleep apnea (adult) (pediatric); N95.2 Postmenopausal atrophic vaginitis; F41.9 Anxiety disorder, unspecified
CPT/HCPCS: 36415; 76642; 80048; 80053; 83690; 87040; 87637; 87798; 93005; 96365; 96366; 96367; 96375; 96376; 97162; 99285; J1650; 71045; 80202; 81003; 81015; 83605; 83735; 83880; 84484; 85025; 85049; 86140; 86618; 93010; 93306; 99223; 99233; 99239; J0131; J0780; J2405; J7613

== ENCOUNTER → 2022-02-14 00:44 | Outpatient (CLI) | payer MEDICARE, MEDICAID, SELFPAY ==
--- NOTE | 2022-02-14 13:00 | DI.DEXA_ITS ---
Exam(s) XR DEXA BONE DENSITY W/WO NOHEMY EXAM: XR DEXA BONE DENSITY W/WO NOHEMY CLINICAL HISTORY: H/O NORMAL MENOPAUSE, Z78.0 TECHNIQUE: Routine DEXA evaluation of the lumbar spine, hip, or forearm. COMPARISON: Prior DEXA scan 2010 FINDINGS: Performed on a [employer] unit. Lateral image: No compression fracture evident. Lumbar Spine total T-score: 2.1. Prior 2011 scan was 2.2 Hip total T-score:0.5. Prior 2011 score was 0.7 Independent reading at the level of the femoral neck yields at T-score of -1.6. Forearm total T-score: -0.7 IMPRESSION: Bone mineral density measures in the osteopenia range. Fracture risk is moderate. Note: Any spine fracture indicates 5x risk for subsequent spine fracture and 2x risk for subsequent h ip fracture. World Health Organization criteria for BMD interpretation classify patients: Normal...... T- Score at or above -1.0 Osteopenic... T- Score between -1.0 and -2.5 Osteoporosis... T-Score at or below -2.5
== END ==
PROVIDERS: Visit Provider Physician Assistant
DX: Z78.0 Asymptomatic menopausal state (principal); Z13.820 Encounter for screening for osteoporosis; M85.89 Other specified disorders of bone density and structure, multiple sites
CPT/HCPCS: 77080

== ENCOUNTER 2022-04-23 14:39 | Emergency (ER) | payer MEDICARE, MEDICAID, SELFPAY ==
[2022-04-23 14:46] VITALS: BP 159/65; PULSE 72; RESP 16; TEMP 36.7; O2SAT 95
--- NOTE | 2022-04-23 15:12 | ED.GENADUL_ITS ---
Discharge Plan Disposition Patient Disposition: Home Condition: Stable Discharge Details Clinical Impression: Bright red rectal bleeding, Bleeding hemorrhoids Primary Care Provider: Rajinder De La Torre ED Provider: Eloise Collins Home Meds and New Rx's Prescriptions: New hydrocortisone [Anusol-HC] 2.5 % cream with perineal applicator 1 applic AL BID 5 Days Qty: 30 0RF hydrocortisone acetate 25 mg suppository 25 mg AL QHS 5 Days Qty: 12 0RF Rx Instructions: one suppository per rectum at bedtime as needed for bleeding No Action aripiprazole 5 mg tablet 5 mg PO QHS metformin 500 mg tablet 500 mg PO DAILY sucralfate [Carafate] 1 gram tablet 1 g PO BID Label Comments: with meals clonazepam 0.5 mg tablet 0.5 mg PO BID PRN Label Comments: Take 1 tablet by mouth once a day as directed for panic attacks duloxetine [Cymbalta] 30 mg capsule,delayed release(DR/EC) 60 mg PO QHS trazodone 50 mg tablet 50 mg PO QHS Label Comments: 1/2 tp 1 tab po HS lovastatin 40 MG tablet 40 mg PO HS hydrochlorothiazide 25 MG tablet 25 mg PO DAILY AM epinephrine 0.3 MG/SYR auto-injector 0.3 mg IJ PRN PRN albuterol sulfate [ProAir HFA] 8.5 GM HFA aerosol inhaler 2 puff Inhalation Q4H PRN PRNQty: 1 0RF Rx Instructions: TO GET PEAK FLOW UP TOWARDS 400 pregabalin [Lyrica] 50 MG capsule 150 mg PO BID cholecalciferol (vitamin D3) [Vitamin D3] 25 mcg (1,000 unit) Tablet 25 mcg PO DAILY fluoxetine 40 mg capsule 20 mg PO DAILY tramadol 50 mg tablet 100 mg PO Q8H PRN PRN Label Comments: 2 tabs BID PRN and one at midday pantoprazole 40 mg Tablet,Delayed Release (Dr/Ec) 40 mg PO DAILY@0730 Qty: 14 0RF lubiprostone [Amitiza] 8 mcg capsule 8 mcg PO DAILY Discharge Instructions Instructions: Hemorrhoids (ED), Rectal Bleeding (ED) Additional Instructions: Use the topical cream up to 3 times daily as needed and use the rectal suppository once at bedtime. Follow up with primary care provider in 3-5 days. Return to ED sooner if any worsening bleeding, lightheadedness or dizziness, abdominal pain, vomiting or concerns. Increase oral fluids. You may also follow-up with general surgery Dr. Osorio regarding the hemorrhoids. Referrals: Rajinder De La Torre [Primary Care Provider] - 3 days Discharge Data Discharge Date/Time-TO BE ENTERED AT DEPARTURE: 04/23/22 17:09 Medical Decision Making 77-year-old female presents to the ER with chief complaint of rectal bleeding which began this morning. Patient reports that she does have a known history of hemorrhoids and approximately 5 years ago was diagnosed with rectal cancer. She states that today she has had continual dripping of bright red blood from her rectum. Guaiac positive stool, abdomen soft nontender with palpation. Labs ordered. On exam she does have flesh-colored hemorrhoids that are nontender with palpation no active bleeding noted. She does have guaiac positive stool. Labs ordered to evaluate H&H. CBC within normal limits, potassium 3.1, glucose 190, magnesium 1.6 Discussed home care follow-up care with patient patient was given Anusol cream and hydrocortisone suppositories. This text was generated using [employer] system, please disregard any oddities of phrase or misspellings. Medical Records Medical records reviewed: Yes I reviewed the patient's medical records. Lab Data Lab results reviewed: Yes I reviewed the patient's lab results. Labs: Laboratory Tests Range/Units 04/23/22 04/23/22 15:19 15:19 WBC (4.4-10.8) 10^3/uL 6.44 RBC (3.93-5.22) 10^6/uL 4.60 Hgb (11.2-15.7) g/dL 13.3 Hct (36.0-46.0) % 39.5 MCV (80-95) fL 86 MCH (27.0-33.0) pg 28.9 MCHC (32.0-36.0) % 33.7 RDW (11.7-14.6) % 12.5 Plt Count (130-400) 10^3/uL 223 MPV (8.0-11.0) fL 9.7 Immature Gran % 0.3 Neutrophils % 64.3 Lymphocytes % 21.9 Monocytes % 9.0 Eosinophils % 3.7 Basophils % 0.8 Nucleated RBC % (0.0-0.3) % 0.0 Absolute Neutrophils (1.2-6.7) 10^3/uL 4.14 Absolute Lymphocytes (1.2-3.4) 10^3/uL 1.41 Absolute Monocytes (0.1-0.8) 10^3/uL 0.58 Absolute Eosinophils (0.0-0.7) 10^3/uL 0.24 Absolute Basophils (0.0-0.2) 10^3/uL 0.05 Sodium (136-145) mmol/L 137 Potassium (3.5-5.1) mmol/L 3.1 L Chloride (98-107) mmol/L 98 Carbon Dioxide (21.0-32.0) mmol/L 32.3 H Anion Gap (3-11) mmol/L 6.7 BUN (7-18) mg/dL 14 Creatinine (0.55-1.02) mg/dL 0.9 Est GFR (CKD-EPI 2020) (mL/min/1.73m2) 66.67 Glucose (74-106) mg/dL 190 H Calcium (8.5-10.1) mg/dL 8.9 Magnesium (1.8-2.4) mg/dL 1.6 L Total Bilirubin (0.2-1.0) mg/dL 0.4 AST (15-37) U/L 21 ALT (14-59) U/L 21 Alkaline Phosphatase (46-116) U/L 88 Total Protein (6.4-8.2) g/dL 6.8 Albumin (3.4-5.0) g/dL 3.6 Sign Out No HPI General Mode of arrival: ambulatory . Date/Time Provider Initiated Documentation: 04/23/22 14:52 . Limitations to Documentation: no limitations . Information obtained by: patient, RN notes reviewed and old records reviewed . HPI Narrative: 77-year-old female presents to the ER with chief complaint of rectal bleeding which began this morning. Patient reports that she does have a known history of hemorrhoids and approximately 5 years ago was diagnosed with rectal cancer. She states that today she has had continual dripping of bright red blood from her rectum. She denies any pain, no abdominal pain denies any lightheadedness or dizziness. Past medical history includes [id number] diabetes, hypertension, esophagitis, hypercholesterolemia, pulmonary edema, sleep apnea atrophic vaginitis, anxiety, GERD surgical history includes partial colectomy, hernia repair total left knee replacement, Alen fundoplication. Related Data Home Medications Medication Instructions Recorded Confirmed hydrochlorothiazide 25 mg tablet 25 mg PO DAILY AM 08/23/12 04/23/22 lovastatin 40 mg tablet 40 mg PO HS 08/23/12 04/23/22 epinephrine 0.3 mg/0.3 mL 0.3 mg IJ PRN PRN 12/29/14 04/23/22 injection, auto-injector albuterol sulfate 90 mcg/actuation 2 puff inhalation Q4H PRN PRN ##1 05/20/15 04/23/22 aerosol inhaler (ProAir HFA) pregabalin 50 mg capsule (Lyrica) 150 mg PO BID 11/22/15 04/23/22 cholecalciferol (vitamin D3) 25 25 mcg PO DAILY 09/14/20 04/23/22 mcg (1,000 unit) tablet (Vitamin D3) clonazepam 0.5 mg tablet 0.5 mg PO BID PRN 09/24/20 04/23/22 aripiprazole 5 mg tablet 5 mg PO QHS 09/12/21 04/23/22 duloxetine 30 mg capsule,delayed 60 mg PO QHS 09/12/21 04/23/22 release (Cymbalta) fluoxetine 40 mg capsule 20 mg PO DAILY 09/12/21 04/23/22 metformin 500 mg tablet 500 mg PO DAILY 09/12/21 04/23/22 sucralfate 1 gram tablet (Carafate) 1 g PO BID 09/12/21 04/23/22 tramadol 50 mg tablet 100 mg PO Q8H PRN PRN 09/12/21 04/23/22 trazodone 50 mg tablet 50 mg PO QHS 09/12/21 04/23/22 pantoprazole 40 mg tablet,delayed 40 mg PO DAILY@0730 #14 tabs 11/30/21 04/23/22 release hydrocortisone 2.5 % topical cream 1 applic AL BID 5 days #30 grams 04/23/22 with perineal applicator (Anusol-HC) hydrocortisone acetate 25 mg 25 mg AL QHS 5 days #12 ea 04/23/22 rectal suppository lubiprostone 8 mcg capsule 8 mcg PO DAILY 04/23/22 04/23/22 (Amitiza) Previous Rx's Medication Instructions Recorded albuterol sulfate 90 mcg/actuation 2 puff inhalation Q4H PRN PRN ##1 05/20/15 aerosol inhaler (ProAir HFA) pantoprazole 40 mg tablet,delayed 40 mg PO DAILY@0730 #14 tabs 11/30/21 release hydrocortisone 2.5 % topical cream 1 applic AL BID 5 days #30 grams 04/23/22 with perineal applicator (Anusol-HC) hydrocortisone acetate 25 mg 25 mg AL QHS 5 days #12 ea 04/23/22 rectal suppository Allergies Allergy/AdvReac Type Severity Reaction Status Date / Time metronidazole Allergy Severe Anaphylaxsi Verified 04/23/22 14:53 s Sulfa (Sulfonamide Allergy Severe anaphalaxis Verified 04/23/22 14:53 Antibiotics) ibuprofen AdvReac Intermediate Gastro Verified 04/23/22 14:53 upset oxycodone [From Percocet] AdvReac Intermediate Other (See Verified 04/23/22 14:53 Comment) NSAIDS (Non-Steroidal AdvReac Itching Verified 04/23/22 14:53 Anti-Inflamma spider venom AdvReac Itching Verified 04/23/22 14:53 General Stated Complaint: GI Bleed MIR: 3 Review of Systems All systems reviewed & are unremarkable except as noted in HPI and below Gastrointestinal Gastrointestinal: Denies abdominal pain, Reports hematochezia, Denies nausea, Denies vomiting and Denies hematemesis PFSH All Active Problems (Updated 04/24/22 @ 00:04 by ANIRUDH BARRERA) Bright red rectal bleeding (Acute) Bleeding hemorrhoids (Acute) Non-insulin treated type 2 diabetes mellitus (Acute) Cellulitis of left breast (Acute) Atrophic vaginitis (Acute) Anxiety (Chronic) Medical History anaphalaxis secondary to antibiotics 12/2013 Arthritis of left shoulder region Asthma Auditory hallucinations Benign hypertension Bile reflux gastritis Carpal tunnel syndrome Chronic pain Constipation by delayed colonic transit Depression Diabetes mellitus Drug-induced photosensitivity Esophagitis determined by endoscopy Fibromyalgia History of colon cancer (07/18/16) Hypercholesterolemia Hypokalemia Hyponatremia Lyme disease Mild cognitive impairment Obesity Osteoarthritis Overactive bladder Polyp of colon (10/05/12) Laparoscopic sigmoid hemicolectomy by Dr. Jose David Renteria 10/05/2012. Primary osteoarthritis of left knee (02/18/17) Pulmonary edema Rectocele Sleep apnea Spinal stenosis of lumbar region Vitamin D deficiency Surgical History Colectomy 08/2012 EGD - MAC (04/28/17) H/O removal of cyst Bartholin cyst excision 2019 - 4cm cyst Hernia Repair, Incisional History of colonoscopy (~07/2019) History of esophagogastroduodenoscopy (EGD) (~07/2019) History of total left knee replacement (TKR) 06/18/2017 Hx of partial cystectomy Hx of shoulder surgery Alen Fundoplication Open Carpal Tunnel release R with trigger release Repair of umbilical hernia Replacement of total knee joint Right & LEFT varicose vein stripping Family History Other Diabetes Heart disease Hyperlipidemia Mental disorder Osteoporosis Personal history of malignant neoplasm Social History Smoking/Tobacco Use Status: Former Tobacco Use Quit Date: 06/01/79 Smoking risk assessment performed?: Yes Alcohol Intake: current Alcohol Intake frequency: a few times a month Alcohol type: beer Drug use: Rarely Substance use type: marijuana Details: Pt states she used to use medical marijuana but has not for about 6 months. 09/12/21- pt rpeorts using marijuana at night only current occupation: Retired Current gender identity: female [employer]cy[employer] Special darcy needs: No Do you feel safe at home: Yes Do you feel safe in your relationship?: Yes Female Reproductive History Menstrual Age of Menarche: 15 Duration of menses: 6-7 days control method: none Menopause type: natural Date of menopause: 06/01/05 History History 2 Para 2 Hx # Term Pregnancies Multiple births Hx # Pregnancies Ectopic pregnancies AB induced Hx Number of Living Children AB spontaneous Past Pregnancies Del. Date GA/Weeks # Preg Succ Route Wgt Sex Labor Lgth Anesth esia Location [facility] 07/02/69 40 No vaginal 3175.147 g Male 04/29/72 40 No vaginal 2948.35 g Male Delivery Date: 07/02/69 Last Updated by: Nellie Rubio episiotomy Exam Narrative Exam Narrative: Constitutional: Alert and oriented x3. Appears stated age. Normal body habitus. Head: Normocephalic, no trauma. Eyes: Pupils PERRL, Red reflex noted, EOM's intact. Eyelids symmetrical without lesions, discharge, or swelling. Chest: RRR, Normal S1, S2, distal pulses intact. Resp: Lungs clear to auscultation bilaterally, no wheezes, rales, or rhonchi. Abdomen: Soft, non-distended, Normoactive bowel sounds all 4 quads. Rectal: See below Musculoskeletal: Normal gait, 5/5 strength to all four extremities. Skin: No suspicious rashes or lesions. Capillary refill less than 2 sec. Neurologic: Cranial nerves II-XII intact. Alert and oriented x 3. Motor: No deficits noted. Sensory: Intact bilaterally all 4 extremities. Reflexes: DTR's intact bilaterally.. Hematologic/Lymphatic: No ecchymosis, no lymphadenopathy. GI Rectal Exam - female: normal sphincter tone, heme positive stool and hemorrhoids (Flesh-colored hemorrhoid noted at approximately 6:00 nontender.) Course Vital Signs Vital signs: Vital Signs Temperature 36.7 C 04/23/22 14:46 Pulse 72 04/23/22 14:46 Respiratory Rate 16 04/23/22 14:46 Blood Pressure 159/65 H 04/23/22 14:46 Pulse Oximetry 95 04/23/22 14:46 Temperature 36.7 C 04/23/22 14:46 Temperature Source Temporal Artery Scan 04/23/22 14:46 Pulse 72 04/23/22 14:46 Respiratory Rate 16 04/23/22 14:46 Respiratory Effort Non-Labored 04/23/22 14:52 Blood Pressure 159/65 H 04/23/22 14:46 Blood Pressure Position Sitting 04/23/22 14:46 Pulse Oximetry 95 04/23/22 14:46 Oxygen Delivery Method Room Air 04/23/22 14:46 Oxygen Flow Rate 0 04/23/22 14:46 Pain Level 0 04/23/22 14:46 Procedures Stool Hemoccult Procedural Steps Taken: stool placed in appropriate test area, developer placed on stool and control areas and controls appropriately positive and negative Hemoccult result: positive
[2022-04-23 15:27] LABS: Abs Immature Grans 0.02 10^3/uL (0.0-0.06); Absolute Basophil Count 0.05 10^3/uL (0.0-0.2); Absolute Eosinophil Count 0.24 10^3/uL (0.0-0.7); Absolute Lymphocyte Count 1.41 10^3/uL (1.2-3.4); Absolute Monocyte Count 0.58 10^3/uL (0.1-0.8); Absolute Neutrophil Count 4.14 10^3/uL (1.2-6.7); Basophils % 0.8; Eosinophils % 3.7; HCT 39.5 % (36.0-46.0); HGB 13.3 g/dL (11.2-15.7); Immature Grans % 0.3; Lymphocytes % 21.9; MCH 28.9 pg (27.0-33.0); MCHC 33.7 % (32.0-36.0); MCV 86 fL (80-95); MPV 9.7 fL (8.0-11.0); Neutrophils % 64.3; Platelet Count 223 10^3/uL (130-400); RDW 12.5 % (11.7-14.6); RDW-SD 38.8 fL; WBC 6.44 10^3/uL (4.4-10.8)
[2022-04-23 15:47] LABS: ALT 21 U/L (14-59); AST 21 U/L (15-37); Albumin 3.6 g/dL (3.4-5.0); Alkaline Phosphatase 88 U/L (46-116); Anion Gap 6.7 mmol/L (3-11); BUN 14 mg/dL (7-18); Bilirubin, Total 0.4 mg/dL (0.2-1.0); CO2 32.3 mmol/L (21.0-32.0); CREATININE 0.9 mg/dL (0.55-1.02); Calcium 8.9 mg/dL (8.5-10.1); Chloride 98 mmol/L (98-107); Estimated GFR 66.67 (mL/min/1.73m2); Glucose 190 mg/dL (74-106); Magnesium 1.6 mg/dL (1.8-2.4); Potassium 3.1 mmol/L (3.5-5.1); Sodium 137 mmol/L (136-145); Total Protein 6.8 g/dL (6.4-8.2)
[2022-04-23 16:59] VITALS: BP 110/60; PULSE 69; RESP 18; TEMP 36.4; O2SAT 95
== END 2022-04-23 17:09 | disposition home or self-care (01) ==
PROVIDERS: Emergency Provider Registered Nurse Emergency; PCP Physician Assistant
DX: K62.5 Hemorrhage of anus and rectum (principal); I10 Essential (primary) hypertension; E11.9 Type 2 diabetes mellitus without complications; J45.909 Unspecified asthma, uncomplicated; E78.00 Pure hypercholesterolemia, unspecified; M19.90 Unspecified osteoarthritis, unspecified site; Z85.038 Personal history of other malignant neoplasm of large intestine; Z85.048 Personal history of other malignant neoplasm of rectum, rectosigmoid junction, and anus; Z87.891 Personal history of nicotine dependence
CPT/HCPCS: 80053; 99282; 83735; 85025

== ENCOUNTER 2022-06-04 14:54 | Outpatient (REF) | payer MEDICARE, SELFPAY ==
--- NOTE | 2022-06-04 14:33 | SKI_PTH ---
PATIENT: Neema Luong [id number] AGE/SX: 77/F ROOM: RE06/04/[address]: Rajinder De La Torre : 1945 BED: DIS: 06/04/2022 SPEC #: [id number] RECD: 06/05/22 12:33 STATUS: EVA REAndi #: [id number] IMER: 06/04/22 14:[address]: Rajinder De La Torre DEPT: Surgical Specimen RECD BY: Daija Rai Tissues: 1 - SKIN BIOPSY(SHAVE/PUNCH) Procedures: SKIN LEVEL 4 Comments: [id number]
== END 2022-06-04 14:55 | disposition home or self-care (01) ==
LOC: NCHCN 14:54
PROVIDERS: PCP Physician Assistant; Visit Provider Physician Assistant
DX: C43.62 Malignant melanoma of left upper limb, including shoulder (principal)
CPT/HCPCS: 88305

== ENCOUNTER → 2022-06-16 14:44 | Outpatient (BNVA) | payer MEDICARE, MEDICAID, SELFPAY | PROVIDERS: PCP Physician Assistant; Referring Provider Physician Assistant; Visit Provider Surgery | DX: L57.0 Actinic keratosis (principal); D03.62 Melanoma in situ of left upper limb, including shoulder; G89.29 Other chronic pain; I10 Essential (primary) hypertension; K29.60 Other gastritis without bleeding; E11.9 Type 2 diabetes mellitus without complications; G47.30 Sleep apnea, unspecified; M48.061 Spinal stenosis, lumbar region without neurogenic claudication | CPT/HCPCS: 99213 ==

== ENCOUNTER → 2022-06-26 09:13 | Outpatient (BNVA) | payer MEDICARE, MEDICAID, SELFPAY | PROVIDERS: PCP Physician Assistant; Referring Provider Physician Assistant; Visit Provider Surgery | DX: C43.62 Malignant melanoma of left upper limb, including shoulder (principal) | CPT/HCPCS: 11602; 99212 ==

== ENCOUNTER 2022-06-26 10:11 | Outpatient (REF) | payer MEDICARE, SELFPAY ==
--- NOTE | 2022-06-26 10:00 | SKI_PTH ---
PATIENT: Neema Luong V LOC: [facility] U#:[id number] AGE/SX: 77/F ROOM: RE06/26/[address]: Callie Watkins : 1945 BED: DIS: 06/26/2022 SPEC #: [id number] RECD: 06/26/22 11:46 STATUS: EVA REQ #: [id number] IMER: 06/26/22 10:[address]: Callie Watkins DEPT: Surgical Specimen RECD BY: Daija Rai ENTERED: 06/26/22 11:46 SP TYPE: CHANCE STARKEY DR: Rajinder De La Torre Tissues: 1 - SKIN BIOPSY(SHAVE/PUNCH) Procedures: SKIN LEVEL 4 Comments: [id number]
== END 2022-06-26 10:12 | disposition home or self-care (01) ==
LOC: LBN 10:11
PROVIDERS: PCP Physician Assistant; Visit Provider Surgery
DX: C43.62 Malignant melanoma of left upper limb, including shoulder (principal)
CPT/HCPCS: 88305

== ENCOUNTER → 2022-07-07 12:56 | Outpatient (BNVA) | payer MEDICARE, SELFPAY | PROVIDERS: PCP Physician Assistant; Referring Provider Physician Assistant; Visit Provider Surgery | DX: C43.62 Malignant melanoma of left upper limb, including shoulder (principal) ==

== ENCOUNTER → 2022-07-11 12:58 | Outpatient (BNVA) | payer MEDICARE, SELFPAY | PROVIDERS: PCP Physician Assistant; Referring Provider Physician Assistant; Visit Provider Surgery | DX: D03.62 Melanoma in situ of left upper limb, including shoulder (principal) | CPT/HCPCS: 99211 ==

== ENCOUNTER 2022-09-01 11:58 | Outpatient (REF) | payer MEDICARE, MEDICAID, SELFPAY ==
[2022-09-01 15:39] LABS: Hemoglobin A1C 6.6 % (<5.7)
[2022-09-01 15:49] LABS: ALT 21 U/L (14-59); AST 15 U/L (15-37); Albumin 3.9 g/dL (3.4-5.0); Alkaline Phosphatase 81 U/L (46-116); BUN 14 mg/dL (7-18); Bilirubin, Total 0.4 mg/dL (0.2-1.0); Calcium 9.6 mg/dL (8.5-10.1); Calculated LDL 90 mg/dL (<100); Chloride 105 mmol/L (98-107); Cholesterol 168 mg/dL (<200); Estimated GFR 58.75 (mL/min/1.73m2); Glucose 159 mg/dL (74-106); HDL Cholesterol 43 mg/dL (40-60); Potassium 4.1 mmol/L (3.5-5.1); Sodium 145 mmol/L (136-145); Total Protein 6.7 g/dL (6.4-8.2); Triglyceride 177 mg/dL (<150)
== END 2022-09-01 11:59 | disposition home or self-care (01) ==
LOC: NCHCN 11:58
PROVIDERS: PCP Physician Assistant; Visit Provider Physician Assistant
DX: E11.9 Type 2 diabetes mellitus without complications (principal)
CPT/HCPCS: 80053; 80061; 83036

== ENCOUNTER 2022-11-27 01:56 | Outpatient (CLI) | payer MEDICARE, MEDICAID, SELFPAY ==
--- NOTE | 2022-11-27 | DI.US_ITS ---
Exam(s) US ABDOMEN LIMITED EXAM: US ABDOMEN LIMITED CLINICAL HISTORY: RUQ ABD PAIN, NAUSEA, ? CHOLELITHIASIS TECHNIQUE: Ultrasound abdomen performed using standard protocol. COMPARISON: CT CT ABDOMEN PELVIS W from 09/14/2020 FINDINGS: LIVER: Normal size. Mild fatty infiltration.. No focal liver lesions are seen.. GALLBLADDER: No evidence of cholelithiasis. No evidence of wall thickening. No pericholecystic fluid identified. DOUGLAS'S SIGN: Negative. BILIARY SYSTEM: No intrahepatic or extrahepatic biliary ductal dilation. RIGHT KIDNEY: Normal size. No evidence of renal calculi. No evidence of hydronephrosis. No suspicious renal mass. No cyst identified. PANCREAS: Normal where visualized. ABDOMINAL AORTA AND IVC: Visualized portions normal caliber. ASCITES: None seen. IMPRESSION: Mild fatty infiltration of the liver. No evidence of cholelithiasis.. DATA REPOSITORY:
== END 2022-11-27 02:16 ==
LOC: DI 01:57
PROVIDERS: PCP Physician Assistant; Visit Provider Physician Assistant
DX: K76.0 Fatty (change of) liver, not elsewhere classified (principal); R10.9 Unspecified abdominal pain; R11.0 Nausea
CPT/HCPCS: 76705

== ENCOUNTER 2023-01-06 11:44 | Outpatient (REF) | payer MEDICARE, MEDICAID, SELFPAY ==
[2023-01-06 16:26] LABS: Microalb ug/mg Crea 4.8 ug/mg Cr
== END 2023-01-06 11:45 | disposition home or self-care (01) ==
LOC: NCHCN 11:44
PROVIDERS: PCP Physician Assistant; Visit Provider Physician Assistant
DX: E11.9 Type 2 diabetes mellitus without complications (principal)
CPT/HCPCS: 82043; 82570

== ENCOUNTER → 2023-01-12 14:32 | Outpatient (BNVA) | payer MEDICARE, MEDICAID, SELFPAY | PROVIDERS: PCP Physician Assistant; Referring Provider Physician Assistant; Visit Provider Surgery | DX: L82.1 Other seborrheic keratosis (principal); D03.62 Melanoma in situ of left upper limb, including shoulder; K29.60 Other gastritis without bleeding; K59.01 Slow transit constipation; N81.6 Rectocele | CPT/HCPCS: 99213 ==

== ENCOUNTER → 2023-02-16 13:42 | Outpatient (BNVA) | payer MEDICARE, MEDICAID, SELFPAY | PROVIDERS: PCP Physician Assistant; Referring Provider Physician Assistant; Visit Provider Surgery | DX: R10.13 Epigastric pain (principal); R14.0 Abdominal distension (gaseous) | CPT/HCPCS: 99213 ==

== ENCOUNTER 2023-02-25 07:29 | Day surgery (SDC) | payer MEDICARE, MEDICAID, SELFPAY ==
--- NOTE | 2023-02-25 06:57 | W.PM.PROGNOT ---
Date of Service Date of service: 02/25/23 Time of Service: 08:09 Assessment and Plan Assessment and plan (1) Bloating: Status: Acute Assessment and plan: Ms Luong is a 77-year-old female with a known history of bile reflux gastritis and esophagitis who comes in complaining of continued abdominal pain in the epigastric area as well as bloating.? This does get better with Rolaids.? She is also had some intermittent dysphagia especially to bread and meat.? I discussed the upper endoscopy with her in detail as well as what I am looking for potentially to explain her symptoms.? We reviewed the pathophysiology of gastritis and reflux.? We reviewed the potential risks of the procedure.? After conversation she seemed to have a good understanding of both the procedure as well as the possible risks.? Risks, benefits and complications have been reviewed. Complications include but are not limited to bleeding, pain, perforation, sore throat, aspiration, and adverse reaction to the anesthesia (hypotension, bradycardia, arrythmia, hypoxia).? Questions were entertained and answered to their satisfaction and they wished to proceed. No guarantees were given or implied. (2) Epigastric pain: Status: Acute Subjective Subjective Interval history since last seen: Patient seen in [facility] today. She has no new symptoms. Continue with epigastric pain and bloating. I reviewed the procedure with her again as well as the potential complications. She had no further questions, understood the procedure and its possible complications, and wished to proceed. Time Spent with Patient Time Spent with Patient: <25 minutes Time was spent: counseling the patient
--- NOTE | 2023-02-25 06:59 | W.PM.ENDDOP ---
Date of service: 02/25/23 Time of Service: 08:52 Endoscopy Report DATE OF PROCEDURE: 02/25/23 PRE-OP DIAGNOSIS: epigastric pain, bloating POST-OP DIAGNOSIS: other (gastritis, esophagitis) PROCEDURE: EGD with biopsies SURGEON: Pao Osorio ANESTHESIA TYPE: General:No Airway ESTIMATED BLOOD LOSS: 3 PATHOLOGY: other (Bx of stomach, GE junction) COMPLICATIONS: None DISPOSITION: same day INDICATIONS: Ms Luong is a 77-year-old female with a known history of bile reflux gastritis and esophagitis who comes in complaining of continued abdominal pain in the epigastric area as well as bloating.? This does get better with Rolaids.? She is also had some intermittent dysphagia especially to bread and meat.? I discussed the upper endoscopy with her in detail as well as what I am looking for potentially to explain her symptoms.? We reviewed the pathophysiology of gastritis and reflux.? We reviewed the potential risks of the procedure.? After conversation she seemed to have a good understanding of both the procedure as well as the possible risks.? Risks, benefits and complications have been reviewed. Complications include but are not limited to bleeding, pain, perforation, sore throat, aspiration, and adverse reaction to the anesthesia (hypotension, bradycardia, arrythmia, hypoxia).? Questions were entertained and answered to their satisfaction and they wished to proceed. No guarantees were given or implied. FINDINGS: moderate inflammation of the stomach. Evidence of reflux PROCEDURE DESCRIPTION: After informed consent was obtained the patient was take to the procedure room and placed in a supine position. Monitors were applied and a time out was done. The patients name, date of , procedure type, allergies to medications and metal in their body was reviewed. A bite block was placed and the patient was sedated. Once sedated and comfortable the gastroscope was advanced through the oropharynx which was grossly normal into the esophagus. The proximal and mid-esophagus were normal. In the distal esophagus there was mild inflammation noted. The scope was advanced into the stomach and through the pylorus into the 3rd portion of the duodenum. The duodenum was noted to be normal. The scope was retracted back into the stomach. There was moderate inflammation as well as some benign appearing fundic gland polyps. Biopsies were done to rule out H. pylori. There were no ulcers. The scope was retroflexed. The cardia and fundus were noted to be normal. There was evidence of a fundoplication noted. It is no longer tight. The scope was retracted back into the esophagus and biopsies were done of the GE junction to rule out Ayala's. The Z line was regular. The GE junction was at 35 cm. The scope was removed and the patient was woken up and taken back to [facility] in stable condition. Follow up: 2 weeks
--- NOTE | 2023-02-25 07:00 | W.PM.DSUDISC ---
Date of service: 02/25/23 Time of Service: 09:20 Discharge Plan Disposition Patient Disposition: Home Condition: Stable Discharge Details Reason For Visit: epigastric pain and bloating Attending Provider: Pao Osorio Primary Care Provider: Rajinder De La Torre Home Meds and New Rx's Prescriptions: New pantoprazole [Protonix] 40 mg tablet,delayed release (DR/EC) 40 mg PO BID Qty: 60 0RF Continued aripiprazole 5 mg tablet 5 mg PO QHS metformin 500 mg tablet 500 mg PO DAILY sucralfate [Carafate] 1 gram tablet 1 g PO BID Patient Comments: with meals misoprostol 100 mcg tablet 100 mcg PO QAC PRN naloxone [Narcan] 4 mg/actuation spray,non-aerosol 4 mg intranasal Q3M PRN Rx Instructions: spray 1 dose into ONE nostril; alternate nostrils w each dose until help arrives fluticasone propionate [Flovent HFA] 110 mcg/actuation HFA aerosol inhaler 2 puff inhalation BID nystatin 100,000 unit/gram powder 1 applic topical BID diclofenac sodium 1 % gel 2 g topical BID PRN Rx Instructions: apply to single elbow, wrist or hand; for hand includes palm/fingers/back of hand clonazepam 0.5 mg tablet 0.5 mg PO BID PRN Patient Comments: Take 1 tablet by mouth once a day as directed for panic attacks duloxetine [Cymbalta] 30 mg capsule,delayed release(DR/EC) 60 mg PO QHS trazodone 50 mg tablet 50 mg PO QHS Patient Comments: 1/2 tp 1 tab po HS lovastatin 40 MG tablet 40 mg PO HS hydrochlorothiazide 25 MG tablet 25 mg PO DAILY AM epinephrine 0.3 MG/SYR auto-injector 0.3 mg IJ PRN PRN pregabalin [Lyrica] 50 MG capsule 150 mg PO BID cholecalciferol (vitamin D3) [Vitamin D3] 25 mcg (1,000 unit) Tablet 25 mcg PO DAILY fluoxetine 40 mg capsule 20 mg PO DAILY lubiprostone [Amitiza] 8 mcg capsule 8 mcg PO DAILY Discontinued pantoprazole 40 mg Tablet,Delayed Release (Dr/Ec) 40 mg PO DAILY@0730 Qty: 14 0RF Discharge Instructions Instructions: Gastritis (DC), GERD (Gastroesophageal Reflux Disease) (DC), Gastric Polyps (DC), Diet for Stomach Ulcers and Gastritis (ED) Additional Instructions: Findings: Inflammation of the stomach and esophagus Follow up: 2 weeks Medication: Protonix 40 mg 2 x a day Stop omeprazole Please call if you develop: fevers >101.5 Nausea or Vomiting Abdominal pain that is not transient Rectal bleeding that is more then a tbsp A hard abdomen and inability to pass gas DAY SURGERY UNIT POST ENDOSCOPY INSTRUCTIONS Instructions for everyone who is given Anesthesia: For your safety, please do the following for the next 24 Hours: a. Do not drive or operate dangerous equipment b. Do not drink alcohol beverages or use any recreational drugs for the first 24 hours or while taking pain medications. The medications in your body may have a reaction that can be dangerous. c. Do not make any important decisions or sign any important papers 1. Generally there are no restrictions on your activity after a day or so has gone by, but you may feel a bit fatigued for a few days. 2. After you arrive home you may have a light meal and return to a normal diet as you can tolerate it without feeling sick to your stomach. 3. After surgery, you may feel pain or discomfort. This should be only transient, but if it persists please contact your doctor. 4. If there are any questions regarding the findings of your procedure, please feel free to contact your doctor. 6. If you are unable to contact your doctor with a problem, contact the hospital at [phone]. 7. Continue all your regular medications unless directed otherwise. I understand the above instructions and have no questions. Signature of Patient or Responsible Adult Escort Date/Time Name of Responsible Adult Escort Signature of Nurse Date/Time Referrals: Pao Osorio MD [ [facility] STAFF PHYSICIAN] - 03/10/23 8:30 am Activity:: Activity as Tolerated Diet:: low acid DS: Diagnosis Discharge Diagnosis (1) Bloating: Status: Acute Asessment and Plan: Patient is seen and examined after their endoscopy. Patient has minimal sore throat. They have been able to tolerate liquids. They do not have any Nausea or Vomiting. They are not having any chest pain or shortness of breath. They have been able to pass gas and are not having any abdominal pain or distention. they have not vomited any blood. The vital signs have been stable-see nursing notes. We discussed findings on their endoscopy We reviewed the importance of lifestyle modifications- see diet recommendations We reviewed any new medications that the patient may be prescribed- see medicine reconciliation. Patient will either be sent a letter with the biopsy results or follow up in the office- see discharge instructions Patient was given explicit instructions for emergency follow up post endoscopy- see discharge instructions Patient verbalized understanding and was discharged in stable and satisfactory condition. See nursing notes. (2) Epigastric pain: Status: Acute
[2023-02-25 07:43] VITALS: BP 146/68; PULSE 63; RESP 17; TEMP 36.5; O2SAT 96
[2023-02-25] MEDS: Lactated Ringers 1,000 ML 80 ML IV (08:11)
--- NOTE | 2023-02-25 08:11 | W.ANESPRE ---
General Info Date of Service Date Performed: 02/25/23 Height: 4 ft 11 in Weight: 93.6 kg Body Mass Index (BMI): 41.6 Surgical Procedure: Operation Date: 02/25/23 08:35 Proposed Procedure Side Surgeon p Gastroscopy Pao Osorio MD Meds Allergies and Home Medications Allergies Allergy/AdvReac Type Severity Reaction Status Date / Time metronidazole Allergy Severe Anaphylaxsi Verified 02/25/23 07:57 s Sulfa (Sulfonamide Allergy Severe anaphalaxis Verified 02/25/23 07:57 Antibiotics) ibuprofen AdvReac Intermediate Gastro Verified 02/25/23 07:57 upset oxycodone [From Percocet] AdvReac Intermediate Other (See Verified 02/25/23 07:57 Comment) NSAIDS (Non-Steroidal AdvReac Itching Verified 02/25/23 07:57 Anti-Inflamma spider venom AdvReac Itching Verified 02/25/23 07:57 Home Medication Medication Instructions Recorded hydrochlorothiazide 25 mg tablet 25 mg PO DAILY AM 08/23/12 lovastatin 40 mg tablet 40 mg PO HS 08/23/12 epinephrine 0.3 mg/0.3 mL 0.3 mg IJ PRN PRN 12/29/14 injection, auto-injector pregabalin 50 mg capsule (Lyrica) 150 mg PO BID 11/22/15 cholecalciferol (vitamin D3) 25 25 mcg PO DAILY 09/14/20 mcg (1,000 unit) tablet (Vitamin D3) clonazepam 0.5 mg tablet 0.5 mg PO BID PRN 09/24/20 aripiprazole 5 mg tablet 5 mg PO QHS 09/12/21 duloxetine 30 mg capsule,delayed 60 mg PO QHS 09/12/21 release (Cymbalta) fluoxetine 40 mg capsule 20 mg PO DAILY 09/12/21 metformin 500 mg tablet 500 mg PO DAILY 09/12/21 sucralfate 1 gram tablet (Carafate) 1 g PO BID 09/12/21 trazodone 50 mg tablet 50 mg PO QHS 09/12/21 pantoprazole 40 mg tablet,delayed 40 mg PO DAILY@0730 #14 tabs 11/30/21 release lubiprostone 8 mcg capsule 8 mcg PO DAILY 04/23/22 (Amitiza) diclofenac sodium 1 % topical gel 2 g topical BID PRN 06/16/22 fluticasone propionate 110 2 puff inhalation BID 06/16/22 mcg/actuation HFA aerosol inhaler (Flovent HFA) misoprostol 100 mcg tablet 100 mcg PO QAC PRN 06/16/22 naloxone 4 mg/actuation nasal 4 mg intranasal Q3M PRN 06/16/22 spray (Narcan) nystatin 100,000 unit/gram topical 1 applic topical BID 06/16/22 powder Current Visit Medications: Current Medications Generic Name Dose Route Start Last Admin Trade Name Freq PRN Reason Stop Dose Admin Ringer's Solution 1,000 mls @ 80 mls/hr 02/25/23 06:00 IV 03/26/23 23:59 INFUSION [facility] IV Miscellaneous Supplies 1 each 02/25/23 06:00 Iv Access IV 03/26/23 23:59 DIRECTED PARI Ondansetron HCl 4 mg 02/25/23 07:01 Ondansetron 4 Mg/2 Ml Vial IVP 03/27/23 07:00 Q4H PRN PRN Nausea / Vomiting Sodium Chloride 0 ml 02/25/23 06:00 Normal Saline Flush 10 Ml Syr IV 03/26/23 23:59 PRN PRN Sodium Chloride 0 ml 02/25/23 06:00 Normal Saline 10 Ml Vial IJ 03/26/23 23:59 DIRECTED PRN Sterile Water 0 ml 02/25/23 06:00 Water,Injection,Sterile 10 Ml Vial IJ 03/26/23 23:59 DIRECTED PRN PFSH Active Problems Active Problems: Problem Status Onset Code Bloating R14.0 Epigastric pain R10.13 Seborrheic keratoses L82.1 Melanoma in situ of upper arm D03.60 Pes planus of left foot M21.42 Actinic keratoses L57.0 Mixed incontinence N39.46 Osteopenia M85.80 Melanoma in situ of left upper arm D03.62 Non-insulin treated type 2 diabetes mellitus E11.9 Cellulitis of left breast N61.0 Atrophic vaginitis N95.2 Anxiety Medical History Medical History anaphalaxis secondary to antibiotics 12/2013 Arthritis of left shoulder region Asthma Auditory hallucinations Benign hypertension Bile reflux gastritis Carpal tunnel syndrome Chronic pain Constipation by delayed colonic transit Depression Diabetes mellitus Drug-induced photosensitivity Esophagitis determined by endoscopy Fibromyalgia History of colon cancer (07/18/16) Hypercholesterolemia Hypokalemia Hyponatremia Lyme disease Mild cognitive impairment Obesity Osteoarthritis Overactive bladder Polyp of colon (10/05/12) Laparoscopic sigmoid hemicolectomy by Dr. Jose David Renteria 10/05/2012. Primary osteoarthritis of left knee (02/18/17) Pulmonary edema Rectocele Sleep apnea Spinal stenosis of lumbar region Vitamin D deficiency Surgical History Surgical History Colectomy 08/2012 EGD - MAC (04/28/17) H/O removal of cyst Bartholin cyst excision 2019 - 4cm cyst Hernia Repair, Incisional History of colonoscopy (~07/2019) History of esophagogastroduodenoscopy (EGD) (~07/2019) History of total left knee replacement (TKR) 06/18/2017 Hx of partial cystectomy Hx of shoulder surgery Alen Fundoplication Open Carpal Tunnel release R with trigger release Repair of umbilical hernia Replacement of total knee joint Right & LEFT varicose vein stripping Tobacco Smoking/Tobacco Use Status: Former Tobacco Use Alcohol Alcohol Intake: current Alcohol intake frequency: holidays/special occasions only Alcohol type: beer Substance Use Substance use: Daily Substance use type: marijuana Details: pt. smoked last night at [address] History History 2 Para 2 Hx # Term Pregnancies Multiple births Hx # Pregnancies Ectopic pregnancies AB induced Hx Number of Living Children AB spontaneous Past Pregnancies Del. Date GA/Weeks # Preg Succ Route Wgt Sex Labor Lgth Anesthesia Location Prov [facility] 07/02/69 40 No vaginal 3175.147 g Male 04/29/72 40 No vaginal 2948.35 g Male Delivery Date: 07/02/69 Last Updated by: Nellie Rubio episiotomy Vital Signs and Lab Results Vital Signs Most Recent Vital Signs in EMR: Most Recent Vital Signs Temp Pulse Resp BP Pulse Ox 36.5 C 63 17 146/68 H 96 02/25/23 07:43 02/25/23 07:43 02/25/23 07:43 02/25/23 07:43 02/25/23 07:43 Point of Care Results Point of Care Results: Finger Stick Blood Glucose 138 02/25/23 08:10 Lab Results Blood Type / Crossmatch: No Data to Display Complete Blood Count: No Data to Display Complete Metabolic Panel: No Data to Display Liver Function Panel: No Data to Display Coagulation Panel: No Data to Display Cardiac Panel: No Data to Display Arterial Blood Gas: No Data to Display Venous Blood Gas: No Data to Display Pancreas Panel: No Data to Display Thyroid Panel: No Data to Display Infectious Disease: No Data to Display Blood Cultures: No Data to Display Toxicology Panel: No Data to Display Imaging and Studies Imaging and Studies Study information below may be from another EMR and interpreted by another provider. Please see original notes in EMR for more complete details. EKG Summary: DATE/TIME OF SERVICE: 11/26/211945 : 1945PERFORMING LOCATION: [facility] Exam: Resting ECG Reason for Exam: weakness, nause Patient Location: E HR:81 bpm ECG Measurements Heart Rate 81 AXIS NV 183 P 64 QRSd 73 QRS 26 QT 353 T13 QTc 409 Conclusion Sinus rhythm...normal P axis, V-rate 60- 99. Echocardiogram Summary: 11/27/2021: EF 60%, No valve disease. Mild pHTN with RV systolic 48. Anesthesia Assessment and Plan Anesthesia History Personal History: No History of Anesthesia Complications Family History: No Family History of Anesthesia Complications Exercise Tolerance Exercise Tolerance: Metabolic Equivalents>4 Pertinent Negatives Pertinent Negatives: No Symptoms of GERD Cardiac & Pulmonary Exam Cardiac Exam: Normal S1/S2 Heart Sounds Pulmonary Exam: Clear Bilateral Breath Sounds Implantable Cardiac Device Does patient have a Pacemaker or an ICD?: No Airway Exam Known Difficult Airway: No Mallampati Class: 2 Mouth Opening: Normal (> 3cm) Thyromental Distance: Less than 3 cm Neck Range of Motion: Full ROM Neck Circumference: Normal Teeth Condition: Generalized Poor Dentition ASA Classification ASA Score: ASA 3 Emergency Case?: No NPO Status NPO Status: NPO Clears >2 hours, Solids >8 hours Anesthesia Plan Resuscitation Status: Full Code Anesthesia Technique: General Anesthesia Airway Planned: Natural Airway Monitors Used: Standard Monitors
[2023-02-25 08:12] VITALS: BMI 41.6
--- NOTE | 2023-02-25 08:37 | STOM_PTH ---
PATIENT: Neema Luong V LOC: [facility] U#:[id number] AGE/SX: 77/F ROOM: RE02/25/[address]: Pao Osorio MD : 1945 BED: DIS: 02/25/2023 SPEC #: [id number] RECD: 02/25/23 12:41 STATUS: EVA RE #: [id number] IMER: 02/25/23 08:[address]: Pao Osorio DEPT: Surgical Specimen RECD BY: Daija Rai ENTERED: 02/25/23 12:42 SP TYPE: STOMACH OTHR DR: Rajinder De La Torre Tissues: 1 - STOMACH BIOPSY 2 - STOMACH BIOPSY 3 - STOMACH BIOPSY 4 - ESOPHAGUS BIOPSY Procedures: GROSS AND MICRO LEVEL 4 Comments: [id number]
[2023-02-25 08:50] VITALS: BP 124/65; PULSE 76; RESP 18; TEMP 36.3; O2SAT 95
[2023-02-25 09:15] VITALS: BP 128/71; PULSE 74; RESP 18; TEMP 36.2; O2SAT 96
--- NOTE | 2023-02-25 09:36 | W.ANESPOSTOP ---
Postoperative Evaluation Date, Time and Location Date Performed: 02/25/23 Time Performed: 09:36 Patient Location: Day Surgery Unit Vital Signs Most Recent Imported Vital Signs: Most Recent Vital Signs Temp Pulse Resp BP Pulse Ox 36.2 C L 74 18 128/71 96 02/25/23 09:15 02/25/23 09:15 02/25/23 09:15 02/25/23 09:15 02/25/23 09:15 Pain Score Most Recent Pain Score: Most Recent Pain Score Pain Level 0 02/25/23 09:15 Assessment Mental Status: Awake (Alert & Oriented to Patient Baseline) Airway and Respiratory Function: Patent airway with normal (patient baseline) respiratory exam Cardiovascular Function: Hemodynamically Stable Hydration Status: Adequately Hydrated Nausea & Vomiting: No Nausea or Vomiting Pain: Pt. Denies Any Pain Peripheral Nerve Block: Patient did not receive a nerve block
== END 2023-02-25 09:52 | disposition home or self-care (01) ==
PROVIDERS: PCP Physician Assistant; Visit Provider Surgery
PROC: 0DJ68ZZ Inspection of Stomach, Via Natural or Artificial Opening Endoscopic (ICD-10-PCS; CPT 43235; principal; 2023-02-25 08:30)
DX: R14.0 Abdominal distension (gaseous) (principal); R10.13 Epigastric pain; K20.90 Esophagitis, unspecified without bleeding; K29.70 Gastritis, unspecified, without bleeding; K31.7 Polyp of stomach and duodenum
CPT/HCPCS: 43239; 88305; J2704

== ENCOUNTER 2023-04-22 19:13 | Outpatient (REF) | payer MEDICARE, SELFPAY | END 2023-04-22 19:14 | disposition home or self-care (01) | LOC: LBN 19:13 | PROVIDERS: PCP Physician Assistant; Visit Provider Nurse Practitioner Family | DX: N89.8 Other specified noninflammatory disorders of vagina (principal) | CPT/HCPCS: 87077; 87086; 87186; 87480; 87510; 87660 ==

== ENCOUNTER 2023-05-09 16:27 | Outpatient (REF) | payer MEDICARE, SELFPAY | END 2023-05-09 16:28 | disposition home or self-care (01) | LOC: NCHCN 16:27 | PROVIDERS: PCP Physician Assistant; Visit Provider Physician Assistant Medical | DX: N89.9 Noninflammatory disorder of vagina, unspecified | CPT/HCPCS: 87077; 87086; 87186; 87480; 87510; 87660 ==

== ENCOUNTER 2023-08-17 18:30 | Outpatient (REF) | payer MEDICARE, MEDICAID, SELFPAY | END 2023-08-17 18:31 | disposition home or self-care (01) | LOC: NCHCN 18:30 | PROVIDERS: PCP Physician Assistant; Visit Provider Physician Assistant | DX: R30.0 Dysuria (principal) | CPT/HCPCS: 87077; 87086; 87186 ==

== ENCOUNTER 2023-10-15 11:41 | Outpatient (CLI) | payer MEDICARE, MEDICAID, SELFPAY ==
[2023-10-15 12:39] LABS: Hemoglobin A1C 6.8 % (<5.7)
[2023-10-15 12:58] LABS: ALT 18 U/L (14-59); AST 14 U/L (15-37); Albumin 3.6 g/dL (3.4-5.0); Alkaline Phosphatase 94 U/L (46-116); Anion Gap 9.1 mmol/L (3-11); BUN 14 mg/dL (7-18); Bilirubin, Total 0.7 mg/dL (0.2-1.0); CO2 29.9 mmol/L (21.0-32.0); CREATININE 0.8 mg/dL (0.55-1.02); Calcium 9.1 mg/dL (8.5-10.1); Calculated LDL 47 mg/dL (<100); Chloride 102 mmol/L (98-107); Cholesterol 111 mg/dL (<200); Estimated GFR 76.31 (mL/min/1.73m2); Glucose 153 mg/dL (74-106); HDL Cholesterol 44 mg/dL (40-60); Potassium 3.7 mmol/L (3.5-5.1); Sodium 141 mmol/L (136-145); Total Protein 6.7 g/dL (6.4-8.2); Triglyceride 104 mg/dL (<150)
[2023-10-15 16:28] LABS: COMMENT (LAB VIEW ONLY) 25.67 mg/dL; Microalb ug/mg Crea 9.7 ug/mg Cr
== END 2023-10-15 11:42 | disposition home or self-care (01) ==
LOC: LBO 11:45
PROVIDERS: PCP Physician Assistant; Visit Provider Physician Assistant
DX: E11.9 Type 2 diabetes mellitus without complications (principal)
CPT/HCPCS: 36415; 80053; 80061; 82043; 82570; 83036

== ENCOUNTER → 2023-11-04 03:11 | Outpatient (CLI) | payer MEDICARE, MEDICAID, SELFPAY ==
--- NOTE | 2023-11-04 | DI.MAMMO_ITS ---
Exam(s) MAMMO SCREENING EXAM: MAMMO SCREENING CLINICAL HISTORY: SCREENING MAMMO FOR BREAST CANCER Z12.31 TECHNIQUE: Bilateral full field digital CC and MLO mammographic images were obtained with 3D tomosyn thesis and utilizing computer aided detection (CAD). COMPARISON: Available for comparison. FINDINGS: Masses/Architectural Distortion: None seen. Microcalcifications: No suspicious pleomorphic-type are seen. Skin Thickening/Nipple Retraction: None. IMPRESSION: 1. No significant interval change with no specific features of malignancy noted. 2. Unless there is more urgent need, screening mammography is recommended, as per [employer] guidelines. BI-RADS Category 1 - Negative Breast Density - Category B - Scattered areas of fibroglandular density Breast density category C or D implies that the patient has dense breast tissue. Dense breast tissue is very common and is not abnormal but dense breast tissue can make it harder to find cancer on a ma mmogram. Also, dense breast tissue may increase their breast cancer risk. This information about the result of the mammogram report was provided to the patient to raise their awareness. Use this report when you speak with the patient about their risks for breast cancer, which includes their family hist ory. At that time, you may recommend for more screening tests (Ultrasound or MRI) as they might be us eful based on their risk. A negative radiographic report should not delay biopsy if a dominant or clinically suspicious mass is present. Up to ten percent of cancers are not identified on mammography. A negative report may reinforce clinical impression. Adenosis and dense breasts may obscure an underlying neoplasm. False positive reports average 6 to 10%. Patient will receive a letter notifying them of these results.
== END ==
PROVIDERS: PCP Physician Assistant; Visit Provider Physician Assistant
DX: Z12.31 Encounter for screening mammogram for malignant neoplasm of breast (principal)
CPT/HCPCS: 77063; 77067

== ENCOUNTER 2023-11-18 11:56 | Outpatient (REF) | payer MEDICARE, MEDICAID, SELFPAY ==
--- NOTE | 2023-11-18 14:18 | SKI_PTH ---
PATIENT: Neema Luong V LOC: [facility] U#:[id number] AGE/SX: 78/F ROOM: RE11/18/[address]: Rajinder De La Torre : 1945 BED: DIS: 11/18/2023 SPEC #: [id number] RECD: 11/19/23 12:44 STATUS: EVA KEYS #: [id number] IMER: 11/18/23 14:[address]: Rajinder De La Torre DEPT: Surgical Specimen RECD BY: Daija Rai Tissues: 1 - SKIN BIOPSY(SHAVE/PUNCH) Procedures: SKIN LEVEL 4 Comments: [id number]
== END 2023-11-18 11:57 | disposition home or self-care (01) ==
LOC: NCHCN 11:56
PROVIDERS: PCP Physician Assistant; Visit Provider Physician Assistant
DX: L82.1 Other seborrheic keratosis (principal)
CPT/HCPCS: 88305

== ENCOUNTER → 2024-01-15 09:10 | Outpatient (BNVA) | payer MEDICARE, MEDICAID, SELFPAY | PROVIDERS: PCP Physician Assistant; Referring Provider Physician Assistant; Visit Provider Physical Therapy Assistant | DX: K62.5 Hemorrhage of anus and rectum (principal); K64.8 Other hemorrhoids; Z85.038 Personal history of other malignant neoplasm of large intestine | CPT/HCPCS: 99214 ==

== ENCOUNTER 2024-01-19 09:03 | Day surgery (SDC) | payer MEDICARE, MEDICAID, SELFPAY ==
--- NOTE | 2024-01-18 14:41 | COLE_ITS ---
Date of service: 01/19/24 Time of Service: 10:53 Colonoscopy Report Date of procedure: 01/19/24 Pre-op diagnosis general: hx of CRC and adenomatous polyps/rectal bleeding Post-op diagnosis procedure note: other (History of colon cancer/advanced adenomas/partial rectal prolapse) Surgeon: Callie Watkins Anesthesia Type: General:No Airway Estimated blood loss (mL): 1 Pathology: other Complications: None Disposition: same day Prep: Miralax/Dulcolax Retraction Time: 17 Procedure Description: After informed consent was obtained, explaining risks of the procedure, including but not limits to: bleeding, infections, complications of anesthesia, perforations (which may require antibiotics and /or surgery and stay in the hospital), and abdominal pain/cramping. The patient was taken to the procedure room and placed in a left decubitous position. Monitors were applied and a time out was done. The patients name, date of , procedure, allergies to medications and metal in their body was reviewed. Pelvic exam was done prior to sedation. No rectocele was noted. Poor rectal tone is noted. The patient was then sedated. Once sedated and comfortable a rectal exam was done. External exam: External hemorrhoids x 3 columns internal exam revealed a normal sphincter tone and no palpable masses. The previously lubricated Olympus scope was then introduced (see RN notes for scope number) and retrofelexed. She has left lateral and right anterior internal hemorrhoids/partial mucosal prolapse were identified. The scope was then advanced to the cecum without difficulty. Patient has had a previous sigmoid resection. Anastomosis is noted at 20 cm. There is no stricture/bleeding/tumor recurrence. She has a flat 1 cm polyp at 20 cm that is removed with a cold biting forcep. All specimen is retrieved and no bleeding is noted. She has a flat 0.5 cm polyp in the rectum that is removed with a cold biting forcep. She has a 0.75 cm flat polyp at the anal rectal junction that is removed with a cold snare. All specimens are retrieved and no bleeding is noted the TI and appendiceal orifice were identified. The scope was then slowly retracted over 17 minutes back into the rectum. . Diverticula: none. The m ucosa is pink and healthy w/ a normal vascular pattern. The patient presents with symptomatic grade [2 hemorrhoids, unresponsive to maximal medical therapy, as well as mild mucosal prolapse. Requesting rubber band ligation of his/her hemorrhoid disease.? All risks, benefits and alternative forms of therapy were described and informed consent was obtained, explaining risks and benefits of the procedure including but not limited to: bleeding/infection/recurrence/complications of anesthesia/need for repeat procedure. In the Left Lateral Decubitus position anoscopic examination revealed grade 2 hemorrhoids in the [RA,/ 11 o?clock,? ? LL/3 o?clock ].? There are no other masses noted.? Good sphincter tone. No rectal prolapse. The decision was made to band the[? RA, , LL] internal hemorrhoid, and suction hand chain maker was used to perform band ligation without complication.? Digital anorectal examination was then performed to assure proper positioning of the band, and to adjust the banded tissue as required.? The patient was discharged home without pain or bleeding. ?Instructions were given in wound care/activity/warning signs and a pain management plan, as well as instructions to avoid constipation. along with follow-up instructions.? No complications were encountered and the patient tolerated the procedure well. The scope was removed, and the patient was woken up and taken back to Same day surgery in stable condition. The patient tolerated the procedure well and there were no immediate complications. Follow up: The patient does not require any further screening colonoscopies unless they develop changes in bowel habits or other new gastrointestinal complaints. [place] Bowel Prep [place] Bowel Prep Right Colon: 2 (There is a significant amount of vegetative matter that clogs the scope) Left Colon: 3 Transverse Colon: 3 Total Score: 8
--- NOTE | 2024-01-18 14:42 | PDOC.DSDIS_ITS ---
Date of service: 01/19/24 Time of Service: 10:56 Discharge Plan Disposition Patient Disposition: Home Discharge Details Reason For Visit: colon scope Attending Provider: Callie Watkins Primary Care Provider: Rajinder De La Torre Home Meds and New Rx's Prescriptions: New Linzess 145 mcg capsule 145 mcg PO DAILY Qty: 90 6RF Continued aripiprazole 5 mg tablet 5 mg PO QHS metformin 500 mg tablet 500 mg PO DAILY sucralfate [Carafate] 1 gram tablet 1 g PO BID Patient Comments: with meals misoprostol 100 mcg tablet 100 mcg PO QAC PRN naloxone [Narcan] 4 mg/actuation spray,non-aerosol 4 mg intranasal Q3M PRN Rx Instructions: spray 1 dose into ONE nostril; alternate nostrils w each dose until help arrives fluticasone propionate [Flovent HFA] 110 mcg/actuation HFA aerosol inhaler 2 puff inhalation BID diclofenac sodium 1 % gel 2 g topical BID PRN Rx Instructions: apply to single elbow, wrist or hand; for hand includes palm/fingers/back of hand clonazepam 0.5 mg tablet 0.5 mg PO BID PRN Patient Comments: Take 1 tablet by mouth once a day as directed for panic attacks duloxetine [Cymbalta] 30 mg capsule,delayed release(DR/EC) 60 mg PO QHS trazodone 50 mg tablet 50 mg PO QHS Patient Comments: 1/2 tp 1 tab po HS pantoprazole 40 mg tablet,delayed release (DR/EC) 40 mg PO DAILY Qty: 90 3RF atorvastatin 40 mg tablet 40 mg PO DAILY fluoxetine 10 mg capsule 10 mg PO DAILY duloxetine 20 mg capsule,delayed release(DR/EC) 20 mg PO DAILY metoprolol succinate 25 mg tablet extended release 24 hr 12.5 mg PO BID oxybutynin chloride 5 mg tablet 5 mg PO TID hydrochlorothiazide 25 MG tablet 25 mg PO DAILY AM epinephrine 0.3 MG/SYR auto-injector 0.3 mg IJ PRN PRN pregabalin [Lyrica] 50 MG capsule 150 mg PO BID cholecalciferol (vitamin D3) [Vitamin D3] 25 mcg (1,000 unit) Tablet 25 mcg PO DAILY fluoxetine 40 mg capsule 20 mg PO DAILY Discontinued Linzess 290 mcg capsule 290 mcg PO DAILY Discharge Instructions Additional Instructions: [facility] Colonoscopy Post- Op Instructions Instructions for Everyone who is given Anesthesia: For your safety, please do the following for the next twenty-four (24) hours: *Do Not operate a motor vehicle (car, truck, motorcycle, etc.) *Do Not drink alcoholic beverages or use any recreational drugs for the first 24 hours or while taking pain medications. The medications in your body may have a reaction that can be dangerous. *Do Not make any important decisions or sign any important papers. Findings: x2 polyps x2 internal hemorrhoids banded you also have external hemorrhoids Follow up: No further colonscopy's required. Of course, you should continue to have a yearly physical exam including a rectal exam. If you should ever notice any pain or difficulty having a bowel movement, blood in the stool, unexplained weight loss, or change in your bowel habits, please contact your health provider 1. No lifting over 20 pounds or strenuous activity for the first 24 hours after your procedure. After 24 hours there are no restrictions on your activity but you may feel fatigued for a few days. 2. After you arrive home you may have a light meal and return to your normal diet as you can tolerate it without feeling sick to your stomach. 3. You may have a bloated, gaseous feeling in your belly (abdomen) after a colonoscopy. Passing gas and belching will help. Walking or lying down on your left side with your knees flexed may relieve the discomfort. Avoid straining to move your bowels. Take colace twice a day. If you cannot move your bowels, take a rescue dose of Mirlax. Do not strain. INSTRUCTIONS AFTER RUBBER BAND LIGATION RUBBER BANDS: There are many methods of treating hemorrhoids. Rubber band ligation is done by application of a small rubber band over the hemorrhoid. The bands, being elastic, tighten and strangulate the hemorrhoid until it falls off. Since internal hemorrhoids usually do not have much sensation to pain, this method is easily tolerated. However, external hemorrhoids are very sensitive, and this method cannot be used for them. ?AFTER THE PROCEDURE: ?It is not uncommon to feel a dull ache for a day or two. This sensation may be noted as soon as the rubber band is applied. Occasionally, it will make you feel as if you want to have a bowel movement. For this ache or discomfort, a great majority of patients either take no medication or they take a few Tylenol. (NOTE: AVOID THE USE OF ASPIRIN, ADVIL, OR MOTRIN (IBUPROFEN), ALEVE, ARTHRITIS MEDICATIONS, OR BLOOD THINNERS FOR ONE WEEK). Taking warm Sitz baths or sitting in a bath tub of warm water for 15 minutes will also relieve this discomfort. ?DIET: You may resume your regular diet. It is important to keep your bowel movements reasonably soft. You should take a bulk laxative (bran, Metamucil, Konsyl, Citrucel etc) daily to avoid hard stools or diarrhea. ?ACTIVITY: You may resume your normal activities such as driving a car, work, and sports.? Avoid ?saddle? type activities for two weeks- horse back rising, cycling, motorcycles/all-terrain vehicles. ?PRECAUTIONS: Banded hemorrhoid will drop off in about 3-10 days. Usually you will not notice anything other than some minor bleeding. Should severe bleeding (half a cup of blood at a time or more) occur, you should contact us immediately. If pain persists past 48 hours, or if it is not controlled by pain pills, or if there is urinary difficulty please call the office. Although this treatment is safe and effective, rare instances of severe infection or bleeding can occur. The main symptoms of infection are severe pain, chills and fever, and inability to urinate. Call the office at [phone] (Office) or [phone] (Hospital) right away if you notice any of the following: a.Vomiting of blood or ?coffee ground stools?. b.Rectal bleeding 1Tbsp, blood clots or continuous bleeding. c.Severe belly (abdominal) pain. d.A hard distended belly (abdomen) and an inability to pass gas. 4. Please don?t expect to have a normal BM (bowel movement) for 2-3 days after your procedure. 5. If there are questions regarding the findings of your procedure, please contact your doctor 6. If you are unable to contact your doctor with a problem, contact the hospital at [phone]. 7. Continue all your regular medications unless directed otherwise. I understand the above instructions and have no questions. Signature of Patient or Adult Escort Name of Responsible Adult Escort Signature of Nurse Date/Time Stand Alone Forms: Anesthesia Discharge Inst., Jossie Garza ([facility]) Activity:: see above Diet:: see above Discharge Orders Discharge Orders: Discharge Order (Routine); Ordered 01/19/24 Ordered By: Callie Watkins DS: Diagnosis Discharge Diagnosis (1) Non-insulin treated type 2 diabetes mellitus: Status: Acute (2) Painless rectal bleeding: Status: Acute (3) Melanoma in situ of left upper arm: Status: Acute (4) History of colon cancer: Asessment and Plan: The patient is seen and examined after their colonoscopy.? The patient has been able to pass gas.? They are not having abdominal pain.? They have been able to tolerate liquids and a snack.? They do not have any nausea or vomiting.? They are not having any chest pain or shortness of breath.??? They are not having any rectal bleeding. Their vital signs have been stable-see nursing notes. We discussed findings during their colonoscopy, and any biopsies that were done/polyps that were removed. The patient will be sent a letter with any biopsy results, and when to repeat the colonoscopy.-see discharge instructions. Patient was given explicit instructions to follow-up regarding colonoscopy-refer to discharge instructions.? We reviewed resumption of medications. Patient verbalized understanding and discharged in stable and satisfactory condition- See nursing notes. (5) Asthma: (6) Sleep apnea:
[2024-01-19 09:05] VITALS: BP 135/68; PULSE 71; RESP 16; TEMP 36.2; O2SAT 96
[2024-01-19] MEDS: Lactated Ringers 1,000 ML 80 ML IV (09:30)
--- NOTE | 2024-01-19 09:49 | ANES.PREOP_ITS ---
General Info Date of Service Date Performed: 01/19/24 Height: 4 ft 11 in Weight: 88.1 kg Body Mass Index (BMI): 39.2 Surgical Procedure: Operation Date: 01/19/24 10:25 Proposed Procedure Side Surgeon p Exam Under Anesthesia Possible Internal Hemorrhoid Banding Callie Watkins DO s Colonoscopy Callie Watkins DO Meds Allergies and Home Medications Allergies Allergy/AdvReac Type Severity Reaction Status Date / Time metronidazole Allergy Severe Anaphylaxsi Verified 01/19/24 09:20 s Sulfa (Sulfonamide Allergy Severe anaphalaxis Verified 01/19/24 09:20 Antibiotics) diclofenac Allergy Unknown Gastric Verified 01/19/24 09:20 ulcer ibuprofen AdvReac Intermediate Gastro Verified 01/19/24 09:20 upset oxycodone (From Percocet) AdvReac Intermediate rash and Verified 01/19/24 09:20 pruritis..see comment NSAIDS (Non-Steroidal AdvReac Itching Verified 01/19/24 09:20 Anti-Inflamma spider venom AdvReac Itching, Verified 01/19/24 09:20 blisters Home Medication ?Medication ?Instructions ?Recorded hydrochlorothiazide 25 mg tablet 25 mg PO DAILY AM 08/23/12 epinephrine 0.3 mg/0.3 mL 0.3 mg IJ PRN PRN 12/29/14 injection, auto-injector pregabalin 50 mg capsule (Lyrica) 150 mg PO BID 11/22/15 cholecalciferol (vitamin D3) 25 25 mcg PO DAILY 09/14/20 mcg (1,000 unit) tablet (Vitamin D3) clonazepam 0.5 mg tablet 0.5 mg PO BID PRN 09/24/20 aripiprazole 5 mg tablet 5 mg PO QHS 09/12/21 duloxetine 30 mg capsule,delayed 60 mg PO QHS 09/12/21 release (Cymbalta) fluoxetine 40 mg capsule 20 mg PO DAILY 09/12/21 metformin 500 mg tablet 500 mg PO DAILY 09/12/21 sucralfate 1 gram tablet (Carafate) 1 g PO BID 09/12/21 trazodone 50 mg tablet 50 mg PO QHS 09/12/21 diclofenac sodium 1 % topical gel 2 g topical BID PRN 06/16/22 fluticasone propionate 110 2 puff inhalation BID 06/16/22 mcg/actuation HFA aerosol inhaler (Flovent HFA) misoprostol 100 mcg tablet 100 mcg PO QAC PRN 06/16/22 naloxone 4 mg/actuation nasal 4 mg intranasal Q3M PRN 06/16/22 spray (Narcan) pantoprazole 40 mg tablet,delayed 40 mg PO DAILY #90 tabs 04/13/23 release atorvastatin 40 mg tablet 40 mg PO DAILY 01/05/24 duloxetine 20 mg capsule,delayed 20 mg PO DAILY 01/05/24 release fluoxetine 10 mg capsule 10 mg PO DAILY 01/05/24 linaclotide 290 mcg capsule 290 mcg PO DAILY 01/05/24 (Linzess) metoprolol succinate 25 mg 12.5 mg PO BID 01/05/24 tablet,extended release 24 hr oxybutynin chloride 5 mg tablet 5 mg PO TID 01/05/24 Current Visit Medications: Current Medications Generic Name Dose Route Start Last Admin Trade Name Freq PRN Reason Stop Dose Admin Hyoscyamine Sulfate 0.125 mg 01/19/24 02:40 Hyoscyamine 0.125 Mg Sl/Oral/Chew SL 02/18/24 02:39 DIRECTED PRN Ringer's Solution 1,000 mls @ 80 mls/hr 01/19/24 06:00 01/19/24 09:30 IV 02/17/24 23:59 80 mls/hr INFUSION PARI Administration IV Miscellaneous Supplies 1 each 01/19/24 06:00 Iv Access IV 02/17/24 23:59 DIRECTED PARI Ondansetron HCl 4 mg 01/19/24 02:40 Ondansetron 4 Mg/2 Ml Vial IVP 02/18/24 02:39 Q4H PRN PRN Nausea / Vomiting Sodium Chloride 0 ml 01/19/24 06:00 Normal Saline Flush 10 Ml Syr IV 02/17/24 23:59 PRN PRN Sodium Chloride 0 ml 01/19/24 06:00 Normal Saline 10 Ml Vial IJ 02/17/24 23:59 DIRECTED PRN Sterile Water 0 ml 01/19/24 06:00 Water,Injection,Sterile 10 Ml Vial IJ 02/17/24 23:59 DIRECTED PRN PFSH Active Problems Active Problems: Problem Status Onset Code Painless rectal bleeding Acute K62.5 Bloating Acute R14.0 Epigastric pain Acute R10.13 Seborrheic keratoses Acute L82.1 Melanoma in situ of upper arm Acute D03.60 Pes planus of left foot Acute M21.42 Actinic keratoses Acute L57.0 Mixed incontinence Acute N39.46 Osteopenia Acute M85.80 Melanoma in situ of left upper arm Acute D03.62 Non-insulin treated type 2 diabetes mellitus Acute E11.9 Cellulitis of left breast Acute N61.0 Atrophic vaginitis Acute N95.2 Anxiety Chronic Medical History Medical History Pulmonary edema Hypokalemia Hyponatremia Drug-induced photosensitivity Lyme disease Mild cognitive impairment Vitamin D deficiency Auditory hallucinations Arthritis of left shoulder region Constipation by delayed colonic transit Asthma Esophagitis determined by endoscopy Bile reflux gastritis Carpal tunnel syndrome Chronic pain Overactive bladder Sleep apnea Diabetes mellitus Spinal stenosis of lumbar region Fibromyalgia Osteoarthritis Rectocele History of colon cancer (07/18/16) Primary osteoarthritis of left knee (02/18/17) anaphalaxis secondary to antibiotics 12/2013 Obesity Depression Hypercholesterolemia Benign hypertension Polyp of colon (10/05/12) Laparoscopic sigmoid hemicolectomy by Dr. Jose David Renteria 10/05/2012. Surgical History Surgical History H/O removal of cyst Bartholin cyst excision 2019 - 4cm cyst History of esophagogastroduodenoscopy (EGD) (~2022) biopsies taken History of colonoscopy (~07/2019) Hx of shoulder surgery Hx of partial cystectomy History of total left knee replacement (TKR) 06/18/2017 varicose vein stripping Replacement of total knee joint Right & LEFT Open Carpal Tunnel release R with trigger release Alen Fundoplication Repair of umbilical hernia Hernia Repair, Incisional EGD - MAC (04/28/17) Colectomy 08/2012 Tobacco Smoking/Tobacco Use Status: Former Tobacco Use Alcohol Alcohol Intake: current Alcohol intake frequency: holidays/special occasions only Alcohol type: beer Substance Use Substance use: Daily Substance use type: marijuana Details: last THC 01/17/24 Prental History History 2 Para 2 Hx # Term Pregnancies Multiple births Hx # Pregnancies Ectopic pregnancies AB induced Hx Number of Living Children AB spontaneous Past Pregnancies Del. Date GA/Weeks # Preg Succ Route Wgt Sex Labor Lgth Anesth esia Location Prov Complic 07/02/69 40 No vaginal 3175.147 g Male 04/29/72 40 No vaginal 2948.35 g Male Delivery Date: 07/02/69 Last Updated by: Nellie Rubio episiotomy Vital Signs and Lab Results Vital Signs Most Recent Vital Signs in EMR: Most Recent Vital Signs Temp Pulse Resp BP Pulse Ox 36.2 C L 71 16 135/68 96 01/19/24 09:05 01/19/24 09:05 01/19/24 09:05 01/19/24 09:05 01/19/24 09:05 Point of Care Results Point of Care Results: Finger Stick Blood Glucose 141 01/19/24 09:25 Lab Results Blood Type / Crossmatch: No Data to Display Complete Blood Count: No Data to Display Complete Metabolic Panel: No Data to Display Liver Function Panel: No Data to Display Coagulation Panel: No Data to Display Cardiac Panel: No Data to Display Arterial Blood Gas: No Data to Display Venous Blood Gas: No Data to Display Pancreas Panel: No Data to Display Thyroid Panel: No Data to Display Infectious Disease: No Data to Display Blood Cultures: No Data to Display Toxicology Panel: No Data to Display Imaging and Studies Imaging and Studies Study information below may be from another EMR and interpreted by another provider. Please see original notes in EMR for more complete details. EKG Summary: DATE/TIME OF SERVICE: 11/26/211945 : 1945PERFORMING LOCATION: [facility] APPROVED REPORT Exam: Resting ECG Reason for Exam: weakness, nause Patient Location: E HR:81 bpm ECG Measurements Heart Rate 81 AXIS WY 183 P 64 QRSd 73 QRS 26 QT 353 T13 QTc 409 Conclusion Sinus rhythm...normal P axis, V-rate 60- 99. Echocardiogram Summary: 11/27/2021: EF 60%, No valve disease. Mild pHTN with RV systolic 48. Anesthesia Assessment and Plan Anesthesia History Personal History: No History of Anesthesia Complications Family History: No Family History of Anesthesia Complications Exercise Tolerance Exercise Tolerance: Metabolic Equivalents>4 Pertinent Negatives Pertinent Negatives: No Symptoms of GERD Cardiac & Pulmonary Exam Cardiac Exam: Normal S1/S2 Heart Sounds Pulmonary Exam: Clear Bilateral Breath Sounds Implantable Cardiac Device Does patient have a Pacemaker or an ICD?: No Airway Exam Known Difficult Airway: No Mallampati Class: 2 Mouth Opening: Normal (> 3cm) Thyromental Distance: Less than 3 cm Neck Range of Motion: Full ROM Neck Circumference: Normal Teeth Condition: Generalized Poor Dentition ASA Classification ASA Score: ASA 3 Emergency Case?: No NPO Status NPO Status: NPO Clears >2 hours, Solids >8 hours Anesthesia Plan Resuscitation Status: Full Code Anesthesia Technique: General Anesthesia Airway Planned: Natural Airway Monitors Used: Standard Monitors
[2024-01-19 09:51] VITALS: BMI 39.2
--- NOTE | 2024-01-19 10:35 | BOWEL_PTH ---
PATIENT: Neema Luong V LOC: [facility] U#:[id number] AGE/SX: 78/F ROOM: RE01/19/[address]: Callie Watkins : 1945 BED: DIS: 01/19/2024 SPEC #: [id number] RECD: 01/19/24 13:05 STATUS: EVA REQ #: [id number] IMER: 01/19/24 10:[address]: Callie Watkins DEPT: Surgical Specimen RECD BY: Daija Rai ENTERED: 01/19/24 13:07 SP TYPE: Bowel OTHR DR: Rajinder De La Torre Tissues: 1 - BIOPSY BOWEL 2 - BIOPSY BOWEL 3 - BIOPSY BOWEL Procedures: GROSS AND MICRO LEVEL 4 Comments: [id number]
[2024-01-19 10:47] VITALS: BP 110/69; PULSE 83; RESP 16; TEMP 36.2; O2SAT 92
[2024-01-19] MEDS: Acetaminophen 500 MG TAB 1000 MG PO (11:08)
[2024-01-19] MEDS: Gabapentin 300 MG CAP PO (11:09)
--- NOTE | 2024-01-19 11:12 | W.ANESPOSTOP ---
Postoperative Evaluation Date, Time and Location Date Performed: 01/19/24 Time Performed: 11:12 Patient Location: Day Surgery Unit Vital Signs Most Recent Imported Vital Signs: Most Recent Vital Signs Temp Pulse Resp BP Pulse Ox 36.2 C L 83 16 110/69 92 01/19/24 10:47 01/19/24 10:47 01/19/24 10:47 01/19/24 10:47 01/19/24 10:47 Pain Score Most Recent Pain Score: Most Recent Pain Score Pain Level 0 01/19/24 10:47 Assessment Mental Status: Awake (Alert & Oriented to Patient Baseline) Airway and Respiratory Function: Patent airway with normal (patient baseline) respiratory exam Cardiovascular Function: Hemodynamically Stable Hydration Status: Adequately Hydrated Nausea & Vomiting: No Nausea or Vomiting Pain: Pt. Denies Any Pain Peripheral Nerve Block: Patient did not receive a nerve block
[2024-01-19 11:30] VITALS: BP 143/69; PULSE 70; RESP 16; TEMP 35.9; O2SAT 94
== END 2024-01-19 12:50 | disposition home or self-care (01) ==
PROVIDERS: PCP Physician Assistant; Visit Provider Surgery
PROC: (CPT 45385; principal; 2024-01-19 10:15)
PROC: 0DJD8ZZ Inspection of Lower Intestinal Tract, Via Natural or Artificial Opening Endoscopic (ICD-10-PCS; CPT 45378; 2024-01-19 10:15)
DX: K62.5 Hemorrhage of anus and rectum; K64.8 Other hemorrhoids; Z85.038 Personal history of other malignant neoplasm of large intestine; K63.5 Polyp of colon
CPT/HCPCS: 45385; 45380; 45398; 88305; J2001; J2704

== ENCOUNTER 2024-08-19 15:59 | Outpatient (REF) | payer MEDICARE, MEDICAID, SELFPAY ==
--- NOTE | 2024-08-19 10:10 | SKI_PTH ---
PATIENT: Neema Luong V LOC: [facility] U#:[id number] AGE/SX: 79/F ROOM: RE08/19/[address]: Rajinder De La Torre : 1945 BED: DIS: 08/19/2024 SPEC #: [id number] RECD: 08/22/24 12:15 STATUS: EVA REAndi #: [id number] IMER: 08/19/24 10:[address]: Rajinder De La Torre DEPT: Surgical Specimen RECD BY: Daija Rai Tissues: 1 - SKIN BIOPSY(SHAVE/PUNCH) Procedures: SKIN LEVEL 4 Comments: [id number]
== END 2024-08-19 16:00 | disposition home or self-care (01) ==
LOC: NCHCN 15:59
PROVIDERS: PCP Physician Assistant; Visit Provider Physician Assistant
DX: L98.498 Non-pressure chronic ulcer of skin of other sites with other specified severity (principal); C43.4 Malignant melanoma of scalp and neck
CPT/HCPCS: 88305

== ENCOUNTER 2024-09-02 15:52 | Outpatient (REF) | payer MEDICARE, MEDICAID, SELFPAY ==
[2024-09-02 17:46] LABS: ALT 30 U/L (14-59); AST 18 U/L (15-37); Albumin 3.5 g/dL (3.4-5.0); Alkaline Phosphatase 109 U/L (46-116); Anion Gap 4.7 mmol/L (3-11); BUN 15 mg/dL (7-18); Bilirubin, Total 0.5 mg/dL (0.2-1.0); CO2 35.3 mmol/L (21.0-32.0); CREATININE 0.9 mg/dL (0.55-1.02); Calcium 9.5 mg/dL (8.5-10.1); Calculated LDL 65 mg/dL (<100); Chloride 104 mmol/L (98-107); Cholesterol 124 mg/dL (<200); Estimated GFR 65.84 (mL/min/1.73m2); Glucose 129 mg/dL (74-106); HDL Cholesterol 48 mg/dL (>or=50); Potassium 3.9 mmol/L (3.5-5.1); Sodium 144 mmol/L (136-145); Total Protein 6.2 g/dL (6.4-8.2); Triglyceride 58 mg/dL (<150)
== END 2024-09-02 15:53 | disposition home or self-care (01) ==
LOC: NCHCN 15:52
PROVIDERS: PCP Physician Assistant; Visit Provider Physician Assistant
DX: E11.9 Type 2 diabetes mellitus without complications (principal)
CPT/HCPCS: 80053; 80061

== ENCOUNTER → 2025-05-02 00:29 | Outpatient (CLI) | payer MEDICARE, MEDICAID, SELFPAY ==
--- NOTE | 2025-05-02 | DI.CT_ITS ---
Exam(s) CT ABDOMEN PELVIS W EXAM: CT ABDOMEN PELVIS W CLINICAL HISTORY: EPIGASTRIC PAIN,R10.13,H/O BOOGIE FUNDOPLICATION. TECHNIQUE: Imaging Protocol: Axial computed tomography images with coronal and sagittal reformatted images were created and reviewed CONTRAST MATERIAL: Intravenous: Omnipaque-350 75cc Oral: Yes. Oral contrast was also administered for bowel opacification. COMPARISON: CT CT ABDOMEN PELVIS W from 09/14/2020 FINDINGS: VISUALIZED LUNG BASES: No nodules nor pleural effusions evident. ABDOMEN: GI: There is no ascites. Stomach is moderately distended. There is evidence of prior fundoplication. There is a hiatal hernia which measures 4 by 3 cm. The oral contrast has progressed to the of the cecum at the time of imaging acquisition. There is no evidence of small-bowel obstruction, free air, nor abscess. There is abundant fecal material noted throughout the colon as well as innumerable tiny densities throughout the colon which are most probably related to medicine ingestion. There has been partial resection of the sigmoid. No obstruction at this level. No inflammatory change this level. There is interposition of the right-side of the colon between the right hepatic lobe and the anterior abdominal wall. Appendix appears unremarkable. LIVER: There is a small subcapsular hypodensity in the anterior aspect of the left hepatic lobe which measures 6 mm and is probably a benign hemangioma. No other focal liver lesions and there are no dilated intrahepatic ducts. GALLBLADDER/BILIARY: No obvious gallbladder pathology. CBD is not dilated. PANCREAS: No evidence of pancreatic mass nor dilatation of the pancreatic duct. SPLEEN: Spleen is not enlarged. No obvious intrasplenic lesions. Splenic and portal veins are patent. ADRENALS: There are no significant adrenal masses. KIDNEYS:Left kidney unremarkable. There is a small benign 7 mm cyst in the anterior cortex of the right kidney which does not require further workup. No solid renal masses. No calculi nor hydronephrosis.. ABDOMINAL AORTA: Abdominal aorta is calcified but not enlarged. LYMPH NODES:There is no retroperitoneal nor paraaortic adenopathy. ABDOMINAL WALL: No evidence of significant anterior abdominal wall nor inguinal hernia. PELVIS: GI: No evidence of appendicitis.No evidence of sigmoid diverticulitis.Partial sigmoid resection. No obstruction or inflammatory change at this level. LYMPH NODES: There is no intrapelvic nor inguinal adenopathy. REPRODUCTIVE: Uterus and adnexal regions appear unremarkable and there is no free fluid in the pelvis. URINARY BLADDER: No calculi nor obvious masses evident OSSEOUS: No fractures and no significant osseous lesions. Multilevel advanced disc space narrowing throughout the lumbar spine. No compression fractures in the field of view of this study. IMPRESSION: 1. There is evidence of prior fundoplication surgery in the stomach. There appears to be a hiatal hernia measuring approximately 4 x 3 cm. 2. Also evidence of prior partial sigmoid resection with no evidence of obstruction or inflammatory change at this level. 3. No evidence of bowel obstruction, free air, nor abscess. 4. Other findings as above. RADIATION DOSE DELIVERED: 448.23mGy.cm Total DLP DATA REPOSITORY: All CT scans at this facility are submitted to the National Radiology Data Registry (NRDR) Dose Index Registry (DIR) with the [employer] (A[employer]). RADIATION OPTIMIZATION: All CT scans at this facility use at least one of these dose optimization techniques: automated exposure control; mA and/or kV adjustment per patient size (includes targeted exams where dose is matched to clinical indication); or iterative reconstruction.
[2025-05-02] MEDS: Barium Sulfate 2% W/V-Berry Smoothie 450 ML BTL PO (09:58)
[2025-05-02] MEDS: Barium Sulfate 2% W/V-Creamy Vanilla Smoothie 450 ML BTL PO (09:58)
[2025-05-02] MEDS: Omnipaque 350 MG/ML 100 ML BTL IJ (12:14)
[2025-05-02] MEDS: Normal Saline - Diluent 50 ML VIAL IJ (12:14)
[2025-05-02] MEDS: Normal Saline Flush 10 ML SYR IVP (12:15)
== END ==
PROVIDERS: PCP Physician Assistant; Visit Provider Physician Assistant
DX: R10.13 Epigastric pain (principal)
CPT/HCPCS: 74177; 82565; J3490